=== PATIENT | male | born 1950 | race Caucasian/White ===

== ENCOUNTER → 2024-04-21 06:59 | Outpatient (REF) | payer MEDICARE, BC, SELFPAY ==
[2024-04-21 09:07] LABS: PSA, Total - Diagnostic 4.44 ng/ml (0.0-4.0)
== END ==
LOC: REG 06:59
PROVIDERS: ATTENDING PHYSICIAN Specialist
DX: N40.1 Benign prostatic hyperplasia with lower urinary tract symptoms (principal)
CPT/HCPCS: 36415; 84153

== ENCOUNTER → 2024-06-04 06:41 | Outpatient (REF) | payer MEDICARE, BC, SELFPAY | LOC: RAD 06:41 | PROVIDERS: ATTENDING PHYSICIAN Family Medicine | DX: I73.9 Peripheral vascular disease, unspecified (principal) | CPT/HCPCS: 93922; 93925 ==

== ENCOUNTER → 2024-06-07 14:38 | Outpatient (REF) | payer MEDICARE, BC, SELFPAY ==
[2024-06-07 15:50] LABS: Blood Urea Nitrogen 24 mg/dl (9-20); Calcium 9.6 mg/dl (8.4-10.2); Carbon Dioxide 28 mmol/L (22-30); Chloride 99 mmol/L (98-107); Glucose 38 mg/dl (70-99); Potassium 3.5 mmol/L (3.5-5.1); Sodium 136 mmol/L (135-145); eGFR 52.74
== END ==
LOC: REG 14:38
PROVIDERS: ATTENDING PHYSICIAN Surgery Vascular Surgery; FAMILY PHYSICIAN Family Medicine
DX: I73.9 Peripheral vascular disease, unspecified (principal)
CPT/HCPCS: 36415; 80048

== ENCOUNTER → 2024-06-09 13:31 | Outpatient (REF) | payer MEDICARE, BC, SELFPAY | LOC: HWRAD 13:31 | PROVIDERS: ATTENDING PHYSICIAN Surgery Vascular Surgery; FAMILY PHYSICIAN Family Medicine | DX: I73.9 Peripheral vascular disease, unspecified (principal) | CPT/HCPCS: 75635; Q9967 ==

== ENCOUNTER 2024-08-04 08:58 | Inpatient (IN) | payer MEDICARE, BC, SELFPAY ==
[2024-07-30 10:05] VITALS: BMI 41.7
[2024-07-30 10:29] LABS: % Basophils 0.7 % (0-2); % Immature Granulocytes 0.2 % (0-0.5); % Lymphocytes 17.2 % (20.5-51.1); % Monocytes 4.3 % (1.7-9.3); % Neutrophils 73.6 % (42.2-75.2); Absolute Basophils 0.1 10^3/uL (0-0.2); Absolute Eosinophils 0.3 10^3/uL (0-0.7); Absolute Lymphocytes 1.4 10^3/uL (1.2-3.4); Absolute Monocytes 0.4 10^3/uL (0.1-0.6); Absolute Neutrophils 6.1 10^3/uL (1.4-6.5); Hematocrit 36.2 % (39.0-52.0); Hemoglobin 12.6 g/dL (13.0-18.0); Mean Corp Hgb Conc. 34.8 g/dL (33.0-37.0); Mean Corpuscular Hgb 32.8 pg (27.0-31.0); Mean Corpuscular Volume 94.3 fL (80.0-94.0); Mean Platelet Volume 9.2 fL (7.4-10.4); Nucleated Red Blood Cells % 0 % (-); Platelet Count 215 10^3/uL (130-400); Red Blood Cell Count 3.84 10^6/uL (4.70-6.10); Red Cell Dist. Width 14.4 % (11.5-14.5); White Blood Cell Count 8.4 10^3/uL (4.8-10.8)
[2024-07-30 10:40] LABS: APTT 25.4 Sec (23.4-35.0); Blood Urea Nitrogen 29 mg/dl (9-20); Calcium 9.6 mg/dl (8.4-10.2); Carbon Dioxide 28 mmol/L (22-30); Chloride 102 mmol/L (98-107); Estimated Creatinine Clearance 58 ml/min; Glucose 196 mg/dl (70-99); INR 1.08; PT 13.9 Sec (11.4-14.6); Potassium 4.3 mmol/L (3.5-5.1); Sodium 141 mmol/L (135-145); eGFR 52.74
[2024-08-04] VITALS (26 sets, daily range): BP systolic 123–159; BP diastolic 48–107; BMI 40.0
--- NOTE | 2024-08-04 08:22 | HP.FOC2 ---
Focused History & Physical
Chief Complaint
HPI:
Chief Complaint: PAD, here for planned procedure
HPI / Indication for Planned Procedure: 74-year-old male here for planned left femoral endarterectomy, right lower extremity angiogram, possible IVL/WAREHOUSEMAN/stent with Dr. Colin today. Patient has trialed exercise and failed. He wishes to proceed with
this procedure today.
Relevant Past Medical History: Other (Crohn's disease, hypercholesterolemia, hypertension, diabetes, acute pancreatitis, CAD, GERD, sleep apnea, BPH, glaucoma, former smoker, seizure disorder)
Relevant Social History: Tobacco Use (Former)
Relevant Family History: Negative
Relevant Past Surgical History: Negative
Medication
See Medication form for detailed medications: Yes
Medication List (including Herbals & OTC):
atorvastatin 40 mg tablet 40 mg PO DAILY High cholesterol 07/19/21
fluticasone propionate 50 mcg/actuation nasal spray,suspension 2 spray intranasal DAILY Allergies 07/19/21
phenytoin sodium extended 100 mg capsule 100 mg PO QID Seizures 07/19/21
pantoprazole 40 mg tablet,delayed release 40 mg PO DAILY Gastrointestinal issue 07/27/21
magnesium 200 mg tablet 400 mg PO BID Electrolyte Repletion 07/10/22
metformin 1,000 mg tablet 1,000 mg PO BID Diabetes 07/10/22
amlodipine 5 mg tablet 5 mg PO DAILY Blood pressure #1 tab 08/02/22
lisinopril 20 mg-hydrochlorothiazide 12.5 mg tablet 2 tab PO DAILY Blood pressure #1 tab 08/02/22
acetaminophen 500 mg tablet (Acetaminophen Extra Strength) 1,000 mg PO PRN PRN pain 07/28/24
aspirin 81 mg tablet,delayed release 81 mg PO DAILY 07/28/24
insulin regular hum U-500 conc 500 unit/mL(3 mL) subcut pen (Humulin R U-500 (Conc) Insulin Kwikpen) 40 - 95 unit SC DIRECTED 07/28/24
Medications Reviewed: Yes
Allergies and Reactions
Patient has Allergies: Yes
Noted Allergies and Reactions:
Allergy/AdvReac Type Severity Reaction Status Date / Time
Sulfa (Sulfonamide Allergy Itching Verified 07/28/24 09:12
Antibiotics)
[Sulfa (Sulfonamides)]
Pertinent Physical Exam
All Other Systems: Negative
Head/Neck: Normal
Lungs: Normal
Heart: Normal
Abdomen: Normal
Extremities: Normal
Neurological: Normal
Diagnosis / Assessment
PAD
Plan / Procedure
Patient here for planned left femoral endarterectomy, right lower extremity angiogram, possible IVL/WAREHOUSEMAN/stent with Dr. Colin
Anesthesia/Sedation to be done by Anesthesia Provider: Yes
--- NOTE | 2024-08-04 09:35 | PTCARENOTE ---
PT ACCUCHECK 335. DR FARLEY AWARE. NO TX ORDERED. WILL TX INTRA PROCEDURE PER DR FARLEY
[2024-08-04] MEDS: PERIDEX 0.12% ORAL RINSE 15 ML PO (09:36)
[2024-08-04] MEDS: BACTROBAN NASAL 1 GRAM NASAL (09:37)
[2024-08-04] MEDS: NSS 500 IV (09:37)
[2024-08-04 09:43] LABS: Glucose - Point of Care 335 mg/dl (70-99)
--- NOTE | 2024-08-04 10:38 | W.SUR.PREOP ---
Pre-Operative Surgical Note
-
I have examined this patient prior to the performance of the scheduled procedure.
The patient's condition is unchanged from the time of the current History and
Physical and the patient is able to undergo the scheduled procedure.
[2024-08-04 13:08] LABS: Glucose - Point of Care 272 mg/dl (70-99)
[2024-08-04 14:34] LABS: Glucose - Point of Care 265 mg/dl (70-99)
--- NOTE | 2024-08-04 14:59 | W.SUR.POST ---
Surgical Immediate Post Op
Note
Pre Op Diagnosis: Peripheral arterial disease
Post Op Diagnosis: Peripheral arterial disease
Procedure Performed: Left femoral endarterectomy with bovine pericardium patch angioplasty, diagnostic right lower extremity arteriogram
Primary Surgeon: Chema Colin MD
neurosurgical physician assistant: LEYLA Grider
Anesthesia: GETA
Estimated Blood Loss: 150 mL
Fluids: Anesthesia flowsheet
Drains/Shunts: N/A
Specimens/Cultures: Left femoral plaque
Doppler/Duplex/Angio (Y/N): Yes
Complications: None
Operative Findings: Right lower extremity not amenable to endovascular intervention
[2024-08-04 15:28] LABS: Glucose - Point of Care 254 mg/dl (70-99)
[2024-08-04 15:50] LABS: Hematocrit 33.5 % (39.0-52.0); Hemoglobin 11.9 g/dL (13.0-18.0); Mean Corp Hgb Conc. 35.5 g/dL (33.0-37.0); Mean Corpuscular Hgb 33.1 pg (27.0-31.0); Mean Corpuscular Volume 93.1 fL (80.0-94.0); Platelet Count 208 10^3/uL (130-400); Red Cell Dist. Width 14.2 % (11.5-14.5); White Blood Cell Count 11.1 10^3/uL (4.8-10.8)
[2024-08-04 16:03] LABS: Blood Urea Nitrogen 29 mg/dl (9-20); Calcium 8.4 mg/dl (8.4-10.2); Carbon Dioxide 25 mmol/L (22-30); Chloride 101 mmol/L (98-107); Estimated Creatinine Clearance 68 ml/min; Glucose 266 mg/dl (70-99); Potassium 4.3 mmol/L (3.5-5.1); Sodium 136 mmol/L (135-145); eGFR > 60.00
--- NOTE | 2024-08-04 16:06 | CON.INTV ---
Consultation
Consultation Request
Date/Time Consultation Requested: 08/04/2024
Date/Time Consultation Performed: 08/04/2020
Requesting Provider: Dr. Colin
Performing Provider: Dr. Stephen Pham
Reason for Consultation: Status post femoral endarterectomy
Medical History
-
History of Present Illness:
74-year-old man with history of peripheral vascular disease, admitted on 08/04/2024 for planned left femoral endarterectomy, right lower lobe extremity angiogram. Surgery underwent by Dr. Colin without complication today.
Currently in the critical care unit.
Reports that the pain is controlled
Denies shortness of breath.
Denies any chest pain or palpitations.
Past Medical History
Past Medical History: Other (See assessment and plan)
Social History
Tobacco: Former Smoker
Alcohol: None
Drug: None
Family History
Family History: Reviewed & Not Pertinent
Allergies / Home Medications
Allergies
Allergy/AdvReac Type Severity Reaction Status Date / Time
Sulfa (Sulfonamide Allergy Itching Verified 08/04/24 09:49
Antibiotics)
[Sulfa (Sulfonamides)]
Home Medications
�Medication �Instructions �Recorded �Confirmed �Last Taken �Type
atorvastatin 40 mg tablet 40 mg PO DAILY High cholesterol 07/19/21 08/04/24 08/03/24 08:30 History
fluticasone propionate 50 2 spray intranasal DAILY Allergies 07/19/21 08/04/24 08/03/24 08:30 History
mcg/actuation nasal
spray,suspension
phenytoin sodium extended 100 mg 200 mg PO BID Seizures 07/19/21 08/04/24 08/03/24 18:00 History
capsule
pantoprazole 40 mg tablet,delayed 40 mg PO DAILY Gastrointestinal 07/27/21 08/04/24 08/03/24 08:30 History
release issue
magnesium 200 mg tablet 400 mg PO BID Electrolyte Repletion 07/10/22 08/04/24 08/03/24 18:00 History
metformin 1,000 mg tablet 1,000 mg PO BID Diabetes 07/10/22 08/04/24 08/03/24 18:00 History
amlodipine 5 mg tablet 5 mg PO DAILY Blood pressure #1 tab 08/02/22 08/04/24 08/03/24 08:30 Rx
lisinopril 20 2 tab PO DAILY Blood pressure #1 08/02/22 08/04/24 08/03/24 08:30 Rx
mg-hydrochlorothiazide 12.5 mg tab
tablet
acetaminophen 500 mg tablet 1,000 mg PO PRN PRN pain 07/28/24 08/04/24 Unknown History
(Acetaminophen Extra Strength)
aspirin 81 mg tablet,delayed 81 mg PO DAILY 07/28/24 08/04/24 08/03/24 08:30 History
release
insulin regular hum U-500 conc 500 40 - 75 unit SC DIRECTED 07/28/24 08/04/24 08/03/24 21:00 History
unit/mL(3 mL) subcut pen (Humulin 60 units
R U-500 (Conc) Insulin Kwikpen)
semaglutide 0.25 mg or 0.5 mg (2 0.5 mg SC QWEEK 08/04/24 08/04/24 07/19/24 08:00 History
mg/1.5 mL) subcutaneous pen
injector (Ozempic)
Review of Systems
-
History Source: Patient
All other systems: Negative unless noted
Vitals / Labs / Diagnostic Testing
Vital Signs
Temp Pulse Resp BP Pulse Ox
98.9 F 77 22 149/68 99
08/04/24 15:19 08/04/24 15:45 08/04/24 15:45 08/04/24 15:45 08/04/24 15:45
Lab Data
08/04/24 15:41
08/04/24 15:41
Diagnostic Testing:
Physical Exam
-
HEENT: Normocephalic
Cardiovascular: S1/S2
Respiratory: Non-Labored Respirations
GI: Soft and Non Distended
Neurology: Awake, Alert, AO x 3 and No Motor Deficits
Skin: Warm
General: Comfortable
Assessment
-
Status post:Left femoral endarterectomy with bovine pericardium patch angioplasty, diagnostic right lower extremity arteriogram-Dr. Colin 08/04/2024
Conditions present prior admission:
History of peripheral arterial disease discovered on CT from 06/09/2024
History of Crohn's disease
Hypercholesterolemia
Hypertension
Type 2 diabetes
History of pancreatitis
Coronary artery disease
GERD
Obstructive sleep apnea
BPH
Glaucoma
Former smoker
Seizure disorder
Assessment and plan:
Postoperative surgical intensive care unit monitoring
Supplemental oxygen as needed
Incentive spirometry
Aspiration precautions
Nebulizers if needed-currently not bronchospastic
Chest x-ray 07/30/2024 reviewed-showed no acute abnormalities
Neuro and vascular checks per protocol
Lower extremities are warm-groin incision without hematoma
Analgesia with narcotics-watch respiratory status closely
Vascular surgery following-correspondence and operative notes reviewed
Monitor blood pressure
Arterial line in place-arterial line appears damp. Would use noninvasive to monitor blood pressure.
Allow for mild permissive hypertension
Cardene drip if needed
Restart outpatient antihypertensive.
Follow hemoglobin
Follow blood sugars
Insulin supplementation as needed
Advance diet as able
Gentle IV fluid
DVT prophylaxis-heparin subcu
--- NOTE | 2024-08-04 16:10 | OR.RPT ---
Operative Report
Operative Report
PROCEDURE DATE: 08/04/2024
Preoperative diagnosis:
1. Severe debilitating left lower extremity claudication with multilevel disease including common femoral bulky plaque near occlusive disease and proximal superficial femoral artery/origin of superficial femoral artery bulky plaque near occlusive
disease.
2. Severe right lower extremity claudication.
Postoperative diagnosis: Same
Procedure:
1. Extensive left ilio-femoral endarterectomy (very distal left external iliac artery, common femoral artery, proximal superficial femoral artery, origin of profunda femoris) with long bovine pericardial patch angioplasty.
2. Aortogram/pelvic angiogram and right lower extremity arteriogram with selective catheterization of right superficial femoral artery via puncture of left common femoral artery patch.
3. Supervision and interpretation.
Surgeon: Cristi
Extruder Operator: MELIA Schmitt, required for all aspects of open surgical procedure including assistance with traction/countertraction, following a suture line, assistance with closure.
Complications: None
Anesthesia: General
Indications for procedure:
Severe bilateral left worse than right lower extremity claudication. Multilevel left-sided disease with bulky common femoral plaque. Discussed femoral endarterectomy with attempted right sided angiogram to percutaneously treat right sided SFA and
popliteal disease. Risk/benefit/alternatives all extensively discussed. Patient understood and wished to proceed.
Description of procedure:
Patient was identified brought to the operating room placed on the table in supine position. After the adequate administration of anesthesia he was prepped and draped in the standard surgical
fashion. A standard preoperative timeout was undertaken and everybody was in agreement the plan. A standard longitudinal incision was made in the left groin I was carried through the skin subcutaneous tissue. He due to his habitus, there was a
moderate amount of subcutaneous tissue to dissect through and we tissues were somewhat challenging to dissect through, but we were able to get down to the level of the inguinal ligament. Any crossing lymphatic type branches were ligated between
silk ties and then divided. In addition any subcutaneous veins were either clipped or ligated and divided. Identified the common femoral artery as it emerged from underneath inguinal ligament. It was plaque laden to palpation. I continued to
dissect down to the level of the femoral bifurcation staying on the anterior surface. Based on CT scan imaging I knew that there was disease in the proximal/origin of the superficial femoral artery. Therefore we dissected down to a segment when
the artery softened up which was at least 4 to 6 cm beyond the origin of the superficial femoral artery. However we were able to find a soft spot where I carefully circumferentially dissected and passed a vessel loop around it. Next I carefully
dissected the origin of the profunda. There was noted to be a branch that ran medially which was also carefully circumferentially dissected and controlled with a vessel loop. The main profunda initially I controlled proximally where it was soft.
However I felt I would need to get further exposure. I therefore then dissected to the first branch point. These were noted to be calcified as noted on CT scan (eccentric calcification without significant stenosis). I therefore then continued to
dissect the main profunda until I got to a soft spot where I could better control at night passed a vessel loop after careful circumferential dissection. Of note, any crossing veins were ligated between silk ties and divided to allow exposure of
the more distal profunda here. At this point we completed dissection of the remainder of the common femoral artery. Any branches were either ligated between silk ties and divided are controlled with Vesseloops. Next I dissected underneath the
inguinal ligament. The left circumflex iliac artery branch was identified and carefully circumferentially dissected and Vesseloops around it. When I dissected proximally to here I noted that the distal external iliac here was soft. I therefore
carefully circumferentially dissected and passed a vessel loop around it and favored this as my clamp site. Now that I had exposure of the inflow and outflow branches, we gave the patient an appropriate dose of heparin (8000 units). After this
circulated for 3 minutes the vessel loop on the distal profunda and the profunda branches were tightened. The superficial femoral artery was clamped where it was soft distally. A Derra clamp was used to clamp the distal external iliac artery. All
other Vesseloops that have been double looped were now tightened. Next I made an arteriotomy on the distal common femoral artery with an 11 blade and extended it proximally with a Maya scissor. Just proximal to the bifurcation there was a chunk
of coral reef like plaque. As I extended more proximally there was only posterior plaque for a few centimeters and then there was severe coral reef/cauliflower-like plaque in the very proximal common femoral artery/distal external iliac artery.
This correlated to the area seen on CT scan. I carried the arteriotomy just beyond that plaque. Next I continued the arteriotomy distally onto the SFA for a few centimeters until I got to the soft spot. Now I used a Taft to create an
endarterectomy plane. There was severe plaque in the origin of the SFA for a few centimeters as well. Therefore this endarterectomy proved to be somewhat challenging as this was bulky dense plaque in several areas here. However I was able to
successfully endarterectomized the plaque all out. The plaque was essentially everted out of the origin of the profunda femoris artery. I was able to feathered out to reasonable endpoints proximally and distally, proximally in the distal external
iliac artery, distally in the superficial femoral artery. The origin of the profunda I inspected and there was a little bit of intima loosely at the posterior lip, and I was able to trim that down to a nice clean feathered endpoint where the intima
is nicely adherent. There is no stenosis now. At this point any fine debris was removed throughout the endarterectomy field with fine forceps. I then irrigated heparinized saline. I confirmed good endpoints proximally and distally and at the
origin of the profunda. I then placed a couple 7-0 Prolene posterior tacking sutures at the distal endpoint in the SFA and at the endpoint on the origin of the profunda. This was done just to tack the posterior intima. Once I did this I then used
a long bovine pericardial patch (14 cm) to sew along patch angioplasty from the distal external iliac artery to the superficial femoral artery. This was done with a running 5-0 Prolene suture. Prior to completing and tying down my suture line I
backbled each of the branches and then flushed heparinized saline and then completed and tied in my suture line. Next I released flow by releasing my clamps. There is excellent pulsatile flow into the arterial branches. Doppler confirmed
excellent signals. A couple 5-0 Prolene and 6-0 Prolene hbturj-zj-jbhsk type sutures were placed along the suture line for any repair sites. Hemostasis of such was fully achieved.
Now, I punctured the patch using a micropuncture kit and a central facing direction in the mid patch. I then advanced a micropuncture sheath and then exchanged over a 0.035 inch wire for a 5 Spanish sheath. Next I advanced a rios's the catheter
into the abdominal aorta over the wire. Aortogram pelvic angiogram was obtained. This demonstrated patent aorta and bilateral common and external iliac arteries with no significant stenosis. Next I used a flopping of hydrophilic wire to cannulate
the right common femoral artery. There was a knuckle of a turn or tortuosity in the right distal external iliac artery but no stenosis. This made it slightly challenging to cannulate the common femoral and beyond but I was able to do so and then
advanced a glide catheter. Right lower extremity arteriogram was performed. This demonstrated fairly bulky plaque in the distal common femoral artery and then at the origin of the superficial femoral artery. Beyond here there was a few
centimeters of respite before there was another section of heavy bulky plaque in the SFA. Then in the mid to distal SFA there was a area of focal occlusion again in the setting of very bulky plaque. And then finally there was an area in the
popliteal artery of focal occlusion versus severe stenosis with again bulky plaque. At this point I cannulated the proximal superficial femoral artery and was able to get through the plaque at the origin. I then was able to exchanged for a Storq
wire and then an up and over 6 Spanish sheath. Next, I used a flopping of hydrophilic wire and a CXI catheter and was able to traverse the origin of the SFA and the proximal SFA stenosis with great difficulty actually. I had trouble passing my CXI
catheter but was finally able to pass it into the mid SFA. Then I approached that area of occlusion and under roadmap assisted guidance was finally able to traverse it with my flopping on hydrophilic wire but catheter could not pass through the
area. I exchanged and tried with a quick cross catheter as well, but no success. After multiple times of trying I felt that there was no further option here. If I was to try with a stiff wire I would have to lose wire access where I had crossed
the occlusion, and in addition I had tried to cross the popliteal occlusion once my wire had passed without the catheter support down there and I could not cross it. Therefore I felt that due to the bulky nature of all his SFA and popliteal
disease, this was not best served with the standard angioplasty or stenting. Therefore at this point I withdrew my wires and catheters. The sheath was withdrawn to the left external iliac artery. Next I clamped the patched artery proximally and
distally and withdrew my sheath as I tightened my clamp proximally. I then placed a 5-0 and 6-0 Prolene jaqsky-su-zuwfx type suture on the sheath entry site after the sheath was removed. I then released my clamps. Hemostasis was achieved. I
confirmed excellent pulsations in the branch of the artery. Next, I irrigated vigorously, and confirmed full hemostasis. Then closed in layers using 2 layers of 2-0 Vicryl followed by 3-0 Vicryl running deep dermal layer followed by skin clips.
Dressings were applied. The patient tolerated procedure well.
[2024-08-04] MEDS: NOVOLOG vial 4 UNITS SC (16:11)
[2024-08-04] MEDS: NSS 1000 IV (17:04)
[2024-08-04] MEDS: NOVOLOG FLEXPEN-HIGH RESISTANCE SC (17:05)
[2024-08-04] MEDS: ROXICODONE 5 MG PO ×2 (17:47→21:53)
--- NOTE | 2024-08-04 18:22 | PTCARENOTE ---
Rec'd patient from PACU @ 5662. Patient AAOx3. NSR on tele monitor. VSS. Left radial sebas positional. Leveled and zeroed. Unable to obtain accurate results. Collections Attorney and Dr Colin notified. Advised to go with BP cuff results. Lung sounds cta.
Simple mask removed. Pulse ox 95-96% on RA. +BS. Abdomen round/obese. Perez in place. Output blood tinged. Left groin site intact with ROSMERY. B/L neurovascular checks wnl. +Doppler dp and pt pulses. MAEx4. Pain controlled with PRN Brunilda. Call cardoza
within reach.
--- NOTE | 2024-08-04 19:34 | PTCARENOTE ---
On assessment pt AAOx3, c/o pain to L groin surgical site, PRN meds given see TRENT, SR on the monitor, + doppler pulses, RA 96%, #16 sim remove POD#2, L groin with ROMSERY dressing blinking MD cha has been made aware per dayshift Yvonne KENYON in
place but very positional, also was made aware and to have staff go off cuff pressures. Call cardoza in reach
[2024-08-04] MEDS: DILANTIN 200 MG PO (21:37)
[2024-08-04] MEDS: MAG-TAB SR 84 MG PO (21:38)
[2024-08-04] MEDS: HEPARIN 5000 UNITS SC (21:38)
[2024-08-04 21:58] LABS: Glucose - Point of Care 179 mg/dl (70-99)
--- NOTE | 2024-08-04 22:37 | PTCARENOTE ---
Decreased UO noted at 2100, staff tried to flush but no urine was noted, bladder scan was 100cc, HOME ATTENDANT at bedside to assess pt, due to pain and small amount of bloody drainage from catheter, manual irrigation completed, clot was noted and urine flow
resumed and 180cc of yellow urine went into sim bag. pt states 'feeling much better'. HOME ATTENDANT made aware
[2024-08-05] VITALS (24 sets, daily range): BP systolic 96–142; BP diastolic 50–85; BMI 40.3
--- NOTE | 2024-08-05 00:40 | PTCARENOTE ---
Pt continued to have issues with L radial Yvonne. Dayshift and nightshift had multiple attempts to get a good wave form and correlating BPs to cuff but was unsuccessful. BOILERMAKER made aware and order was placed to remove Yvonne, removed per protocol, pt
tolerated and no bleeding noted. call cardoza in reach
[2024-08-05] MEDS: NSS 1000 IV (02:22)
--- NOTE | 2024-08-05 02:33 | PTCARENOTE ---
Irrigated sim again, pt tolerated well, increased urine output noted, see flowsheets
[2024-08-05 04:39] LABS: Hematocrit 29.8 % (39.0-52.0); Hemoglobin 10.6 g/dL (13.0-18.0); Mean Corp Hgb Conc. 35.6 g/dL (33.0-37.0); Mean Corpuscular Hgb 33.5 pg (27.0-31.0); Mean Corpuscular Volume 94.3 fL (80.0-94.0); Platelet Count 190 10^3/uL (130-400); Red Blood Cell Count 3.16 10^6/uL (4.70-6.10); Red Cell Dist. Width 14.4 % (11.5-14.5); White Blood Cell Count 10.4 10^3/uL (4.8-10.8)
[2024-08-05 04:52] LABS: PT 14.2 Sec (11.4-14.6)
[2024-08-05 04:53] LABS: APTT 24.3 Sec (23.4-35.0)
[2024-08-05 05:03] LABS: Blood Urea Nitrogen 23 mg/dl (9-20); Carbon Dioxide 22 mmol/L (22-30); Chloride 103 mmol/L (98-107); Estimated Creatinine Clearance 74 ml/min; Glucose 218 mg/dl (70-99); Sodium 137 mmol/L (135-145); eGFR > 60.00
[2024-08-05 05:47] LABS: Hepatitis C Antibody Negative (Negative)
--- NOTE | 2024-08-05 07:38 | W.PN.VS ---
Addendum entered and electronically signed by Chema Colin MD 08/05/24 12:28:
Seen and examined earlier this a.m. with [employer] POWERPLANT MECHANIC HELPER's. This is a late entry. Findings and plan as noted and discussed below.
Original Note:
Today's Communication / Plan
-
Seen and assessed with Dr. Colin
Assessment/Plan
-
POD 1 left femoral endarterectomy with on table diagnostic right lower extremity arteriogram
Plan:
-DC A-line
-DC fluids
-DC Perez
-Out of bed to chair later this morning, will progress to ambulation tomorrow
-Diet
-Continue ICU today
Subjective Data
-
Date of Service: August 05, 2024
Objective Data
-
Vital Signs
Temp Pulse Resp BP Pulse Ox
98.3 F 89 16 142/64 96
08/05/24 00:39 08/05/24 06:00 08/05/24 06:00 08/05/24 06:00 08/05/24 06:00
Intake and Output
08/04/24 08/05/24 08/06/24
06:59 06:59 06:59
Intake Total 1540 / 1540
Output Total 2104
Balance -565 / -565
Intake:
Oral fluids 320 / 320
IV fluids (Total) 1220 / 1220
Normosol 100 / 100
Nss 1,000 ml @ 80 mls/hr IV . 1120 / 1120
[id number] [facility] Rx#:[id number]
Output:
Urine, Perez 2104
Lab Results
08/05/24 04:16
08/05/24 04:16
Calcium 8.0 mg/dl (8.4-10.2) L 08/05/24 04:16
Physical Exam
-
AAOx3
No tachypnea on room air
No tachycardia
Abdomen soft
Left groin site dressing clean, dry, intact. No drainage noted
Bilateral feet warm, pink. Doppler PT and DP signals +
--- NOTE | 2024-08-05 08:00 | PTCARENOTE ---
recd pt 0715, vascular check with offgoing RN. assessed as noted. notes pain manageable. aware of plans for the day. some leaking urine around sim, dcd per order. urinal provided.
[2024-08-05] MEDS: MAG-TAB SR 84 MG PO ×2 (08:03→20:35)
[2024-08-05] MEDS: ASPIR LOW (ENTERIC COATED) 81 MG PO (08:03)
[2024-08-05] MEDS: DILANTIN 200 MG PO ×2 (08:03→20:35)
[2024-08-05] MEDS: HEPARIN 5000 UNITS SC (08:03)
[2024-08-05] MEDS: LIPITOR 40 MG PO (08:03)
[2024-08-05] MEDS: PROTONIX 40 MG PO (08:03)
[2024-08-05] MEDS: ORETIC 25 MG PO (08:04)
[2024-08-05] MEDS: NORVASC 5 MG PO (08:04)
[2024-08-05] MEDS: ZESTRIL 40 MG PO (08:04)
[2024-08-05 08:18] LABS: Glucose - Point of Care 289 mg/dl (70-99)
[2024-08-05 08:21] LABS: Glycohemoglobin (HgbA1c) 7.1 % (4.0-5.6)
[2024-08-05] MEDS: NOVOLOG FLEXPEN-HIGH RESISTANCE 7 UNITS SC (09:29)
[2024-08-05] MEDS: ROXICODONE 5 MG PO ×4 (10:21→22:46)
--- NOTE | 2024-08-05 10:49 | CM ---
CM following re: discharge planning.
Discussed in Rounds, reviewed pt's chart, met with pt.
Pt is a 74 year old male, admitted with primary dx of POD 1 left femoral endarterectomy.
Pt reports he lives alone in a 2SH, 2 steps to enter, spouse 2 years ago. Emotional support offered and provided. Pt reports he has no children, has supportive young brother who lives in [place] and staying now with the pt due to
pt's hospitalization. 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 Pt reports he does not use any mobile devices.
PT and OT will evaluate the pt to determine a level of care at discharge.
PCP: Teodoro Barnard
Pharmacy: [facility]
D/C plan; home with anticipated no needs vs VN. Awaiting for PT/OT evaluations and recommendations.
CM will follow with discharge plan updates as hospitalization progresses
--- NOTE | 2024-08-05 11:20 | PTCARENOTE ---
med as noted earlier pre-activity, OOB with RW, gait steady and strong, to recliner. stood to void clear yellow, less blood tinge than earlier.
--- NOTE | 2024-08-05 11:32 | W.PN.INTV ---
Today's Communication / Plan
Recommendations
Continue neurovascular checks per protocol
Postoperative care
Restart outpatient medications
Glycemic control
Analgesia with narcotics as needed
Will maintain ICU level of care for additional 24 hours
Assessment
-
Status post:Left femoral endarterectomy with bovine pericardium patch angioplasty, diagnostic right lower extremity arteriogram-Dr. Colin 08/04/2024
Conditions present prior admission:
History of peripheral arterial disease discovered on CT from 06/09/2024
History of Crohn's disease
Hypercholesterolemia
Hypertension
Type 2 diabetes
History of pancreatitis
Coronary artery disease
GERD
Obstructive sleep apnea
BPH
Glaucoma
Former smoker
Seizure disorder
Chest x-ray 07/30/2024-showed no acute abnormalities
Assessment and plan:
Postoperative day 1
Doing well
Neurologically and hemodynamically stable.
Arterial line will be discontinued
Perez catheter discontinued
Out of bed to chair, ambulation tomorrow.
-
Supplemental oxygen as needed
Incentive spirometry
-
Neuro and vascular checks per protocol
Lower extremities are warm
groin incision without hematoma
Analgesia with narcotics-watch respiratory status closely
Vascular surgery following-correspondence and operative notes reviewed
Continue to monitor hemodynamics
Continue outpatient regimen
Arterial line has been discontinued
Follow hemoglobin-stable compared to yesterday.
No evidence for acute bleeding at this point
Follow blood sugars
Insulin supplementation as needed
Diet as tolerated
DVT prophylaxis-heparin subcu
Will maintain ICU hemodynamic monitoring for additional 24 hours
Subjective Dataa
Subjective Data
Date of Service:
Date of Service: August 05, 2024
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
Subjective:
Patient offers no new complaints
Denies shortness of breath
Denies significant pain
Denies abdominal pain nausea vomit
Review of Systems
Cardiopulmonary: Dyspnea on Exertion (n)
GI: Abdominal Pain (n) and Nausea (n)
Objective Data
Data Reviewed
Vital Signs / I&O / Oxygen:
Vital Signs
Temp Pulse Resp BP Pulse Ox
98.5 F 96 22 125/70 92
08/05/24 07:40 08/05/24 10:00 08/05/24 10:00 08/05/24 10:00 08/05/24 10:00
Intake and Output
08/04/24 08/05/24 08/06/24
06:59 06:59 06:59
Intake Total 1540 / 1620 800 / 800
Output Total 2105 / 2305 625 / 625
Balance -565 / -685 175 / 175
SaO2 92
Physical Exam
General: Comfortable
HEENT: Normocephalic
Cardiovascular: S1-S2
Respiratory: Non-Labored Respirations
GI: Soft and Non Distended
Neurology: Awake, AO x 3 and No Motor Deficits
Skin: Warm and Other (Incision is intact without evidence of bleeding)
Labs/Micro/Reports
Lab Data
08/05/24 04:16
08/05/24 04:16
Laboratory Results
08/05/24
04:16
PT 14.2
INR 1.10
APTT 24.3
[2024-08-05] MEDS: GLUCOPHAGE 1000 MG PO ×2 (12:07→20:35)
[2024-08-05 12:29] LABS: Glucose - Point of Care 350 mg/dl (70-99)
--- NOTE | 2024-08-05 12:39 | PN.CDI ---
CDI
- -
CDI:
Physician Documentation Request
Admit Date: 08/04/24 08:58
Dear Vascular Surgery,
Clinical Indicators:
Patient admitted with PAD; s/p left femoral endarterectomy 08/04.
Height: 5 ft 8 in
BMI/weight trend:
07/30/24
10:05 08/04/24
09:48 08/05/24
06:00
Actual Weight 265 lb 14.04 oz 263 lb 265 lb 3.457 oz
Body Mass Index (BMI) 41.7 40.0 40.3
08/05 note, 'Chart reviewed due to pt with BMI > 40 morbidly obese range'
If possible, please provide an associated diagnosis related to the abnormal BMI (BMI > or = to 40), such as:
Morbid obesity
Obesity
BMI is not significant
Other, please specify
Use of terms such as suspected, likely, concern for, or probable (associated with a specific diagnosis that is being evaluated, monitored, or treated as if it exists) are acceptable and can be coded in the inpatient setting, when documented at the
time of discharge.
Thank you,
Liv Irby RN BSN
CDI Specialist
available via tiger text
Please use your independent medical judgment in providing your response.
--- NOTE | 2024-08-05 13:23 | PN.DE.MGMTRT ---
Insulin Management
- -
08/05/2024: Diabetes management consult
74 year old male s/p Left femoral endarterectomy. PMH: CAD, LEONEL, GERD, HTN, PAD, Crohn's disease, Hypercholesterolemia, H/O pancreatitis, BPH, Glaucoma, Former smoker, Seizure disorder and T2DM, current A1C 7.1%, follows Endo Dr. Rogers Biswas at
[facility]. Uses CGM FreeStyle Cheryl 3.
Pt awake, A/O x3, sitting up in chair, pleasant, offers no complaints, able to discuss diabetes mgt.
He is doing well post-op. Current diabetes regimen includes Metformin 1000mg BID and High corrective insulin only.
Was taking U-500, 75 units before breakfast, 40 units before lunch if he eats and 20 units if not lunch and 60 units at 9pm.
Blood sugar has trended up to 350, requiring high doses of corrective insulin. Pt has ordered fruit bowl for lunch.
Will start OP regimen, Give U-500, 40 units now. 60 units @ 9pm tonight and 75 units in AM before breakfast.
Change to moderate corrective insulin with meals.
Discussed with ICU team- Pharmacy and Nurse at bedside.
Diabetes History
- -
Type of Diabetes: 2 requiring insulin
Pre-Admission Diabetes Regimen
08/04/24 08/05/24
15:41 04:16
Creatinine 1.2 1.1
Lab Results
Hemoglobin A1c 7.1 % (4.0-5.6) H 08/05/24 04:16
Insulin Pump Settings
IP Diabetes Regimen
08/04/24 08/04/24 08/04/24
14:22 15:27 15:41
Glucose 266 H
POC Glucose 265 H 254 H
08/04/24 08/05/24 08/05/24
21:47 04:16 08:00
Glucose 218 H
POC Glucose 179 H 289 H
08/05/24
12:17
Glucose
POC Glucose 350 H
Meal type: Breakfast
Amount consumed: 100%
Patient Education
[2024-08-05] MEDS: NOVOLOG FLEXPEN-HIGH RESISTANCE 12 UNITS SC (13:57)
--- NOTE | 2024-08-05 14:07 | PTCARENOTE ---
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 pt aware and verbalizing understanding.
[2024-08-05] MEDS: TYLENOL 650 MG PO ×3 (14:30→22:46)
[2024-08-05 15:28] LABS: Glucose - Point of Care 450 mg/dl (70-99)
--- NOTE | 2024-08-05 15:32 | PTCARENOTE ---
U 500 insulin ordered, accucheck high, venous glucose obtained and sent, awaiting result to cover.
[2024-08-05 15:44] LABS: Glucose 371 mg/dl (70-99)
[2024-08-05] MEDS: HUMULIN R U-500 (CONCENTRATED) 40 UNITS SC (15:47)
[2024-08-05 17:44] LABS: Glucose - Point of Care 351 mg/dl (70-99)
[2024-08-05] MEDS: NOVOLOG FLEXPEN-MODERATE RESISTANCE 9 UNITS SC (17:49)
[2024-08-05] MEDS: LOVENOX 40 MG SC (17:56)
--- NOTE | 2024-08-05 18:43 | PTCARENOTE ---
back to bed min assist. positioned for comfort. stood to urinate. oral care by patient, brushed teeth.
--- NOTE | 2024-08-05 19:58 | PTCARENOTE ---
On assessment pt AAOx3, c/o discomfort to L groin surgical site, PRN meds given see TRENT, SR on the monitor, + doppler pulses, RA 95%, sim removed today, voiding in urinal well per pt, L groin with ROSMERY dressing blinking MD cha aware per
dayshift RN, Call cardoza in reach
[2024-08-05 20:33] LABS: Glucose - Point of Care 303 mg/dl (70-99)
[2024-08-05 21:39] LABS: Glucose - Point of Care 271 mg/dl (70-99)
[2024-08-05] MEDS: HUMULIN R U-500 (CONCENTRATED) 60 UNITS SC (22:03)
[2024-08-06] VITALS (20 sets, daily range): BP systolic 97–145; BP diastolic 47–86; PULSE 111–126; O2SAT 98; BMI 40.9
--- NOTE | 2024-08-06 | PTCARENOTE ---
Pt c/o pain to L groin PRN meds given see MAR, pt uses urinal x1 assist, call cardoza in reach
[2024-08-06] MEDS: DILAUDID 0.5 MG IV (01:50)
[2024-08-06 03:39] LABS: Hematocrit 29.2 % (39.0-52.0); Hemoglobin 10.5 g/dL (13.0-18.0); Mean Platelet Volume 9.1 fL (7.4-10.4); Platelet Count 194 10^3/uL (130-400); Red Blood Cell Count 3.28 10^6/uL (4.70-6.10); Red Cell Dist. Width 14.4 % (11.5-14.5); White Blood Cell Count 9.6 10^3/uL (4.8-10.8)
[2024-08-06 03:55] LABS: Blood Urea Nitrogen 26 mg/dl (9-20); Calcium 8.6 mg/dl (8.4-10.2); Carbon Dioxide 25 mmol/L (22-30); Chloride 101 mmol/L (98-107); Estimated Creatinine Clearance 68 ml/min; Glucose 152 mg/dl (70-99); Potassium 3.9 mmol/L (3.5-5.1); Sodium 136 mmol/L (135-145); eGFR > 60.00
--- NOTE | 2024-08-06 05:54 | PTCARENOTE ---
pt appears to be resting comfortably in bed at this time, PRN meds given see gina NEWMAN in reach
[2024-08-06] MEDS: TYLENOL 650 MG PO ×2 (06:37→15:09)
[2024-08-06] MEDS: ROXICODONE 5 MG PO ×2 (06:37→12:23)
--- NOTE | 2024-08-06 07:49 | PN.DE.MGMTRT ---
Insulin Management
- -
08/06/2024: Diabetes management F/U:
74 year old male s/p Left femoral endarterectomy. PMH: CAD, LEONEL, GERD, HTN, PAD, Crohn's disease, Hypercholesterolemia, H/O pancreatitis, BPH, Glaucoma, Former smoker, Seizure disorder and T2DM, current A1C 7.1%, follows Endo Dr. Rogers Biswas at
[facility]. Uses CGM FreeStyle Cheryl 3. Current diabetes regimen includes Metformin 1000mg BID and High corrective insulin only.
Was taking U-500, 75 units before breakfast, 40 units before lunch if he eats and 20 units if not lunch and 60 units at 9pm.
Pt awake, A/O x3, sitting up in chair, pleasant, offers no complaints, able to discuss diabetes mgt.
POD #2, doing. States he is very happy with how his blood sugars have come down since starting is home insulin
Blood sugar trended up to 450 yesterday due to delay in getting his U-500 lunch time dose.
Glucose at bedtime was 271, received 60 units of U-500, FBG 152 (V) and 107 right before breakfast.
Will make no changes to current regimen: U-500, 75 units @breakfast, 40 units @lunch if he eats and 20 units if no lunch and 60 units at 9pm.
Cont moderate corrective insulin with meals.
Discussed with pt, ICU team- Pharmacy and Nurse at bedside.
Diabetes History
- -
Type of Diabetes: 2 requiring insulin
Pre-Admission Diabetes Regimen
08/06/24
03:28
Creatinine 1.2
Lab Results
Hemoglobin A1c 7.1 % (4.0-5.6) H 08/05/24 04:16
Insulin Pump Settings
IP Diabetes Regimen
08/05/24 08/05/24 08/05/24
08:00 12:17 15:16
Glucose
POC Glucose 289 H 350 H 450 H
08/05/24 08/05/24 08/05/24
15:23 17:32 20:21
Glucose 371 H
POC Glucose 351 H 303 H
08/05/24 08/06/24
21:28 03:28
Glucose 152 H
POC Glucose 271 H
Meal type: Dinner
Meal type: Lunch
Meal type: Breakfast
Amount consumed: 100%
Amount consumed: 100%
Amount consumed: 100%
Patient Education
[2024-08-06] MEDS: DILANTIN 200 MG PO ×2 (07:56→21:13)
[2024-08-06] MEDS: LIPITOR 40 MG PO (07:56)
[2024-08-06] MEDS: ASPIR LOW (ENTERIC COATED) 81 MG PO (07:56)
[2024-08-06] MEDS: NORVASC PO (07:58)
--- NOTE | 2024-08-06 07:58 | W.PN.VS ---
Addendum entered and electronically signed by Chema Colin MD 08/06/24 09:53:
Seen and examined with MELIA Schmitt. Agree with findings as noted below. Abdomen is soft, nondistended, nontender. Left groin dressing is clean dry and intact. No hematoma. Right foot warm. Hemoglobin stable. Plan/as discussed and noted below.
Original Note:
Today's Communication / Plan
-
Seen at bedside this a.m. with Dr. Colin
Assessment/Plan
-
POD 2 left femoral endarterectomy with on table diagnostic right lower extremity arteriogram
Plan:
-PT/OT
-Ambulate
-Appreciate diabetic management
-Possible DC later today, if patient does go home I will return to change phil dressing
Subjective Data
-
Date of Service: August 06, 2024
Patient seen at bedside this a.m. with Dr. Colin. Patient complains of left leg 'heaviness'. He has experienced this in the past after a hip surgery. He is looking forward to getting out of bed today and walking around. No events overnight
Objective Data
-
Vital Signs
Temp Pulse Resp BP Pulse Ox
99.5 F 72 22 110/56 96
08/06/24 07:00 08/06/24 06:00 08/06/24 06:00 08/06/24 06:00 08/06/24 06:00
Intake and Output
08/05/24 08/06/24 08/07/24
06:59 06:59 06:59
Intake Total 1540 / 1620 1370 / 1370
Output Total 2105 / 2305 1950 / 1950
Balance -565 / -685 -580 / -580
Intake:
Oral fluids 320 / 320 1290 / 1290
IV fluids (Total) 1220 / 1300 80 / 80
Normosol 100 / 100
Nss 1,000 ml @ 80 mls/hr IV . 1120 / 1200 80 / 80
[id number] [facility] Rx#:[id number]
Output:
Urine, Perez 2105 / 2305 200 / 200
Urine, Voided 1750 / 1750
Lab Results
08/06/24 03:28
08/06/24 03:28
Calcium 8.6 mg/dl (8.4-10.2) 08/06/24 03:28
Physical Exam
-
AAOx3
No tachypnea on room air
No tachycardia
Abdomen soft
Left groin site dressing clean, dry, intact. No drainage noted
Bilateral feet warm, pink. Doppler PT and DP signals +
[2024-08-06] MEDS: ORETIC PO (07:59)
[2024-08-06] MEDS: GLUCOPHAGE 1000 MG PO ×2 (07:59→21:13)
[2024-08-06] MEDS: MAG-TAB SR 84 MG PO ×2 (08:00→21:13)
[2024-08-06] MEDS: ZESTRIL PO (08:00)
[2024-08-06] MEDS: PROTONIX 40 MG PO (08:00)
[2024-08-06] MEDS: HUMULIN R U-500 (CONCENTRATED) 75 UNITS SC (08:01)
[2024-08-06 08:07] LABS: Glucose - Point of Care 107 mg/dl (70-99)
[2024-08-06] MEDS: NOVOLOG FLEXPEN-MODERATE RESISTANCE SC ×3 (08:10→16:35)
--- NOTE | 2024-08-06 10:59 | W.PN.INTV ---
Today's Communication / Plan
Recommendations
Continue postoperative care
Possible discharge later today
Assessment
-
Status post:Left femoral endarterectomy with bovine pericardium patch angioplasty, diagnostic right lower extremity arteriogram-Dr. Colin 08/04/2024
Conditions present prior admission:
History of peripheral arterial disease discovered on CT from 06/09/2024
History of Crohn's disease
Hypercholesterolemia
Hypertension
Type 2 diabetes
History of pancreatitis
Coronary artery disease
GERD
Obstructive sleep apnea
BPH
Glaucoma
Former smoker
Seizure disorder
Chest x-ray 07/30/2024-showed no acute abnormalities
Assessment and plan:
Postoperative day 2
Doing well
Neurologically and hemodynamically stable.
Distal pulses present
Extremities are warm
Increase activity as able
-
Neuro and vascular checks per protocol
groin incision without hematoma
Analgesia with narcotics-watch respiratory status closely
Vascular surgery following-correspondence and operative notes reviewed
Possible discharge today
Hemodynamically stable
Follow hemoglobin-stable
No evidence for acute bleeding at this point
Follow blood sugars-
Insulin supplementation as needed
Nurse practitioner follow
DVT prophylaxis-heparin subcu
Possible discharge today. If not discharged we will transfer to telemetry.
Critical care team will sign off
Subjective Dataa
Subjective Data
Date of Service:
Date of Service: August 06, 2024
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
Subjective:
Patient denies any shortness of breath
Pain is controlled
He was able to get out of bed
Tolerating diet
Review of Systems
Cardiopulmonary: Dyspnea (n) and Cough (n)
GI: Abdominal Pain (n) and Nausea (n)
Neuro: Headache (n)
Objective Data
Data Reviewed
Vital Signs / I&O / Oxygen:
Vital Signs
Temp Pulse Resp BP Pulse Ox
99.5 F 103 27 139/70 95
08/06/24 07:00 08/06/24 10:00 08/06/24 10:00 08/06/24 10:00 08/06/24 10:00
Intake and Output
08/05/24 08/06/24 08/07/24
06:59 06:59 06:59
Intake Total 1540 / 1620 1370 / 1370
Output Total 2105 / 2305 1950 / 1950 200 / 200
Balance -565 / -685 -580 / -580 -200 / -200
SaO2 95
Physical Exam
General: Comfortable
HEENT: Normocephalic
Cardiovascular: S1-S2
Respiratory: Non-Labored Respirations
GI: Soft and Non Distended
Neurology: Awake, AO x 3 and No Motor Deficits
Skin: Warm and Other (Incision is intact without evidence of bleeding- no hematoma)
Labs/Micro/Reports
Lab Data
08/06/24 03:28
08/06/24 03:28
[2024-08-06 12:05] LABS: Glucose - Point of Care 146 mg/dl (70-99)
[2024-08-06] MEDS: HUMULIN R U-500 (CONCENTRATED) 40 UNITS SC ×2 (12:17→21:52)
--- NOTE | 2024-08-06 12:57 | CM ---
CM following re: discharge planning.
Discussed in Rounds, reviewed pt's chart, met with pt, pt's brother deja and his grandson.
PT and OT evaluations noted - SNF level of care recommended. Both pt and his family are aware, expressed their agreement. A list of SNFs provided to the pt. Following SNFs preferred: [facility], [facility], [facility], [facility], [facility], [facility] or [facility] SNF. A referral to above SNFs made. Awaiting for determination.
D/C plan: preferred SNF. Awaiting for determination.
CM will follow to assist pt with discharge to a preferred SNF.
--- NOTE | 2024-08-06 14:15 | PTCARENOTE ---
Pt received in bed @ 0700. AAOx3. PRN Roxicodone administered for 6/10 groin pain. Neurovascular assessment unchanged. Pt assisted OOB to chair. SaO2 96% on room air. Diminished breath sounds. Sinus rhythm/Sinus tach on monitoring manager.
Anti-hypertensives held per order as SBP < 130 and receiving Roxicodone. Round obese belly. No bowel movement observed. Insulin administered per order. Left groin site C/D/I. Pt stood to use urinal throughout day with progressive weakness, stating
that he thinks he would be unable to go home safely. Assessed by Physical Therapy and case management pursuing placement option.
--- NOTE | 2024-08-06 14:44 | W.PN.UPDATE ---
Update Note
Progress Note Update
CDI:
Physician Documentation Request
Admit Date: 08/04/24 08:58
Clinical Indicators:
Patient admitted with PAD; s/p left femoral endarterectomy 08/04.
Height: 5 ft 8 in
BMI/weight trend:
07/30/2410:05 08/04/2409:48 08/05/2406:00
Actual Weight 265 lb 14.04 oz 263 lb 265 lb 3.457 oz
Body Mass Index (BMI) 41.7 40.0 40.3
08/05 note, 'Chart reviewed due to pt with BMI > 40 morbidly obese range'
If possible, please provide an associated diagnosis related to the abnormal BMI (BMI > or = to 40), such as:
Morbid obesity
--- NOTE | 2024-08-06 14:58 | W.[place]-PDMP ---
[place]-PD[place]
-
Checked the [place]- Prescription Drug Monitoring Program website, no red flags identified; safe to proceed with prescription.
--- NOTE | 2024-08-06 15:30 | PTCARENOTE ---
Received, pt resting in bed. Temp 102.1. PRN Tylenol given. Sat's 90% on simple mask set at 8L NC. Denies any pain. Report given to 2 [facility] by previous RN. Reached out to Elizabeth SCHMIDT about temp. before moving pt. Will upgrade back to ICU, Left groin
dressing changed by Elizabeth SCHMIDT, Xray ordered. Pulse ox changed to a different finger and now sating 94-98% on RA. Lungs diminished throughout. IS given to help open lungs. Sinus tach on monitor. Trace lower extremity edema. Pulses present by
doppler. Pt updated with plan of care. Will continue to monitor pt. closelly.
--- NOTE | 2024-08-06 15:38 | W.PN.UPDATE ---
Update Note
Progress Note Update
Pt spiked temp 102.1 before transfer to telemetry. RN notified me. I saw pt at bedside. Surgical site dressing changed, no drainage or sign of infection. [place] applied. Pulse ox improved to normal, pt states he feels his breathing is at his baseline.
Medial thigh mildly pink, skin slightly indurated, tender to palpation. Surrounding skin soft. Plan to keep pt in ICU. Order CXR, UA, Tylenol given by RN. Dr Colin aware.
[2024-08-06 16:45] LABS: Glucose - Point of Care 68 mg/dl (70-99)
--- NOTE | 2024-08-06 16:51 | W.PN.UPDATE ---
Update Note
Progress Note Update
Fever up to 102.
Patient did report sore throat and mild cough earlier today.
Denies sputum production. Denies shortness of breath at rest.
Mild right basilar crackles
Chest x-ray minimal right middle lobe suspect atelectasis-empirically started on antibiotic for pneumonia.
Incentive spirometry. Right basilar abnormality may be from atelectasis.
Check UA follow fever curve
Repeat CBC tomorrow
Patient will be kept in the ICU.
[2024-08-06] MEDS: ZITHROMAX 500 MG PO (16:59)
[2024-08-06] MEDS: MIRALAX 17 GRAMS PO (16:59)
--- NOTE | 2024-08-06 17:00 | PTCARENOTE ---
Glucose 68. Juice given per protocol. Rechecked and glucose 70. Dinner ordered and will recheck at 1850
[2024-08-06 17:01] LABS: Glucose - Point of Care 70 mg/dl (70-99)
[2024-08-06] MEDS: LOVENOX 40 MG SC (18:06)
[2024-08-06] MEDS: STERILE WATER FOR INJECTION 10 ML IV (18:07)
[2024-08-06] MEDS: ROCEPHIN 1000 MG IV (18:07)
[2024-08-06 18:58] LABS: Glucose - Point of Care 83 mg/dl (70-99)
--- NOTE | 2024-08-06 20:50 | PTCARENOTE ---
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 mild L Fem site pain- tolerable per pt at this time. NV checks intact. L Fem ROSMERY drsg intact. BG recheck 82- discussed with HollisNP & night insulin dose adjusted per DEC.
UA to lab. POC discussed, call sony w/pt.
[2024-08-06] MEDS: COLACE 100 MG PO (21:13)
[2024-08-06 21:17] LABS: Glucose - Point of Care 82 mg/dl (70-99)
[2024-08-06 21:49] LABS: Urine Albumin Trace (Neg - Trace); Urine Bilirubin 1+ (Negative); Urine Character Clear (Clear); Urine Color Yellow; Urine Glucose Negative (Negative); Urine Ketone Negative (Negative); Urine Leukocyte Trace (Negative); Urine Nitrite Negative (Negative); Urine Occult Blood Negative (Negative); Urine Urobilinogen Negative (Neg - 1+)
[2024-08-06 22:08] LABS: Urine Bacteria Few (Negative); Urine Red Blood Cell 0-2 /HPF (0-2); Urine White Cell 0-2 /HPF (0-5)
[2024-08-07] VITALS (15 sets, daily range): BP systolic 98–118; BP diastolic 48–74; BMI 40.8
--- NOTE | 2024-08-07 03:30 | PTCARENOTE ---
no changes in pt assessment.
[2024-08-07 04:03] LABS: Glucose - Point of Care 82 mg/dl (70-99)
[2024-08-07 04:13] LABS: Hematocrit 28.5 % (39.0-52.0); Hemoglobin 10.2 g/dL (13.0-18.0); Mean Corp Hgb Conc. 35.8 g/dL (33.0-37.0); Mean Corpuscular Volume 92.2 fL (80.0-94.0); Platelet Count 192 10^3/uL (130-400); Red Blood Cell Count 3.09 10^6/uL (4.70-6.10); Red Cell Dist. Width 14.5 % (11.5-14.5); White Blood Cell Count 13.3 10^3/uL (4.8-10.8)
[2024-08-07 04:43] LABS: Blood Urea Nitrogen 31 mg/dl (9-20); Calcium 8.6 mg/dl (8.4-10.2); Carbon Dioxide 24 mmol/L (22-30); Chloride 98 mmol/L (98-107); Estimated Creatinine Clearance 55 ml/min; Glucose 75 mg/dl (70-99); Potassium 3.6 mmol/L (3.5-5.1); Sodium 134 mmol/L (135-145); eGFR 48.55
--- NOTE | 2024-08-07 07:19 | W.PN.VS ---
Addendum entered and electronically signed by Arnaldo Perez III, MD 08/07/24 08:19:
This patient was seen and examined with LEYLA Grider. I agree with the history and physical exam as well as the assessment and plan.
Signed:
Arnaldo Perez III, MD
[facility] Vascular Surgery
[phone] (lcvx)
Original Note:
Today's Communication / Plan
-
Seen and assessed with Dr. Perez
Assessment/Plan
-
POD 3 left femoral endarterectomy with on table diagnostic right lower extremity arteriogram
Plan:
-Follow fever curve, if patient febrile again will order blood cultures
-Continue antibiotics
-PT/OT
-Ambulate
-Appreciate diabetic management
-Case management working on placement
Subjective Data
-
Date of Service: August 07, 2024
Patient bedside this am with Dr. Perez. Patient offers no complaints at this time, slept well overnight. No events overnight. No further fevers. Vital signs stable
Objective Data
-
Vital Signs
Temp Pulse Resp BP Pulse Ox
98.8 F 76 20 116/55 91
08/07/24 03:42 08/07/24 06:00 08/07/24 06:00 08/07/24 06:00 08/07/24 06:00
Intake and Output
08/06/24 08/07/24 08/08/24
06:59 06:59 06:59
Intake Total 1370 / 1370
Output Total 1950 / 1950 425 / 425
Balance -580 / -580 -425 / -425
Intake:
Oral fluids 1290 / 1290
IV fluids (Total) 80 / 80
Nss 1,000 ml @ 80 mls/hr IV . 80 / 80
[id number] ROSMERY Rx#:[id number]
Output:
Urine, Perez 200 / 200
Urine, Voided 1750 / 1750 425 / 425
Lab Results
08/07/24 03:51
08/07/24 03:51
Calcium 8.6 mg/dl (8.4-10.2) 08/07/24 03:51
Physical Exam
-
AAOx3
No tachypnea on room air
No tachycardia
Abdomen soft
Left groin site dressing clean, dry, intact. No drainage noted
Bilateral feet warm, pink. Doppler PT and DP signals +
[2024-08-07] MEDS: ZITHROMAX 500 MG PO (08:05)
[2024-08-07] MEDS: PROTONIX 40 MG PO (08:05)
[2024-08-07] MEDS: MAG-TAB SR 84 MG PO ×2 (08:06→20:44)
[2024-08-07] MEDS: LIPITOR 40 MG PO (08:06)
[2024-08-07] MEDS: ASPIR LOW (ENTERIC COATED) 81 MG PO (08:06)
[2024-08-07] MEDS: GLUCOPHAGE 1000 MG PO ×2 (08:06→20:43)
[2024-08-07] MEDS: COLACE 100 MG PO ×2 (08:07→20:43)
[2024-08-07] MEDS: ZESTRIL PO (08:07)
[2024-08-07] MEDS: DILANTIN 200 MG PO ×2 (08:07→20:44)
[2024-08-07] MEDS: MIRALAX 17 GRAMS PO (08:09)
[2024-08-07] MEDS: NORVASC PO (08:09)
[2024-08-07] MEDS: ORETIC PO (08:10)
[2024-08-07] MEDS: TYLENOL 650 MG PO ×3 (08:11→22:35)
[2024-08-07] MEDS: NOVOLOG FLEXPEN-MODERATE RESISTANCE SC ×2 (08:19→17:00)
[2024-08-07 08:29] LABS: Glucose - Point of Care 142 mg/dl (70-99)
[2024-08-07] MEDS: HUMULIN R U-500 (CONCENTRATED) 75 UNITS SC (09:30)
[2024-08-07] MEDS: ROXICODONE 5 MG PO ×3 (11:12→22:34)
--- NOTE | 2024-08-07 11:29 | W.PN.INTV ---
Today's Communication / Plan
Recommendations
Continue to monitor fevers
Monitor leukocytosis
Continue antibiotics-consider transition to oral antibiotics Augmentin tomorrow if continues to improve
Incentive spirometry
Increase activity as able
Will follow
Assessment
-
Status post:Left femoral endarterectomy with bovine pericardium patch angioplasty, diagnostic right lower extremity arteriogram-Dr. Colin 08/04/2024
Conditions present prior admission:
History of peripheral arterial disease discovered on CT from 06/09/2024
History of Crohn's disease
Hypercholesterolemia
Hypertension
Type 2 diabetes
History of pancreatitis
Coronary artery disease
GERD
Obstructive sleep apnea
BPH
Glaucoma
Former smoker
Seizure disorder
Chest x-ray 07/30/2024-showed no acute abnormalities
Assessment and plan:
Postoperative day 3
Develop a fever 08/06/2024-no more fevers
mild leukocytosis
Nontoxic/no oxygen requirement
Minimal coughing
Chest x-ray with possible right lower lobe abnormality
Crackles on exam
Mild coughing
No oxygen requirements
UA is normal
Blood cultures if febrile again
No aspiration clinically.
Started antibiotics for pneumonia. If continues to be afebrile transition to oral antibiotics Augmentin for additional 5 days.
Neurologically and hemodynamically stable.
Distal pulses present
Extremities are warm
Increase activity as able
-
Neuro and vascular checks per protocol
groin incision without hematoma
Vascular surgery following-correspondence and operative notes reviewed
Possible discharge today
Follow blood sugars-
Insulin supplementation as needed
Nurse practitioner following the patient
DVT prophylaxis-heparin subcu
Will continue to follow briefly.
Subjective Dataa
Subjective Data
Date of Service:
Date of Service: August 07, 2024
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
Subjective:
He denies any particular complaints .
no significant phlegm
Denies shortness of breath at rest
No further fevers
Pain is controlled
Review of Systems
General: Fever (n)
Cardiopulmonary: Dyspnea (n) and Cough (n)
GI: Abdominal Pain (n)
Objective Data
Data Reviewed
Vital Signs / I&O / Oxygen:
Vital Signs
Temp Pulse Resp BP Pulse Ox
98.8 F 79 17 110/58 98
08/07/24 03:42 08/07/24 08:10 08/07/24 08:00 08/07/24 08:10 08/07/24 08:39
Intake and Output
08/06/24 08/07/24 08/08/24
06:59 06:59 06:59
Intake Total 1370 / 1370 240 / 240
Output Total 1950 / 1950 425 / 425 300 / 300
Balance -580 / -580 -425 / -425 -60 / -60
SaO2 98
Physical Exam
General: Comfortable
HEENT: Normocephalic
Cardiovascular: S1-S2
Respiratory: Crackles (right base) and Non-Labored Respirations
GI: Soft and Non Distended
Neurology: Awake, AO x 3 and No Motor Deficits
Skin: Warm and Other (Incision is intact without evidence of bleeding- no hematoma)
Labs/Micro/Reports
Lab Data
08/07/24 03:51
08/07/24 03:51
[2024-08-07] MEDS: NOVOLOG FLEXPEN-MODERATE RESISTANCE 1 UNITS SC (12:26)
[2024-08-07] MEDS: HUMULIN R U-500 (CONCENTRATED) 40 UNITS SC (12:27)
[2024-08-07 12:35] LABS: Glucose - Point of Care 166 mg/dl (70-99)
--- NOTE | 2024-08-07 13:25 | PTCARENOTE ---
Update to vascular team this am. Following vascular checks, VS trends. ABX as ordered. Continue with Incentive spirometer cough and deep breath exercises. Mobility and PT/OT. Patient with resilience to moving this am. Incisional pain well managed
following medications via Emar. Update family at bedside this shift. Continue accu data trends, follow up coverage. Continue ongoing teaching and supportive cares
[2024-08-07 16:58] LABS: Glucose - Point of Care 123 mg/dl (70-99)
[2024-08-07] MEDS: LOVENOX 40 MG SC (17:07)
[2024-08-07] MEDS: STERILE WATER FOR INJECTION 10 ML IV (17:07)
[2024-08-07] MEDS: ROCEPHIN 1000 MG IV (17:08)
--- NOTE | 2024-08-07 18:04 | TRANSFER ---
Patient transferred to [address] [place] [address] 2110 from ICU.Patient is alert and oriented.He rates his pain at a 3 out of 10.Vital signs are stable.The patient is sitting in the chair with the call cardoza in reach.
[2024-08-07 21:13] LABS: Glucose - Point of Care 159 mg/dl (70-99)
[2024-08-07] MEDS: HUMULIN R U-500 (CONCENTRATED) 60 UNITS SC (22:25)
[2024-08-08 03:55] VITALS: BP 111/58
[2024-08-08 07:25] VITALS: BP 134/66
[2024-08-08 08:05] LABS: Glucose - Point of Care 106 mg/dl (70-99)
--- NOTE | 2024-08-08 08:35 | W.PN.VS ---
Today's Communication / Plan
-
.
Assessment/Plan
-
S/P Left femoral endarterectomy. Doing well.
Plan:
-OOB; PT/OT
-Keep ROSMERY
Subjective Data
-
Date of Service: August 08, 2024
No complaints
No events
Doing well sitting up in chair
In good spirits this AM
Ate b'fast without a problem
No significant pain
Objective Data
-
Vital Signs
Temp Pulse Resp BP Pulse Ox
99.2 F 87 18 134/66 99
08/08/24 07:25 08/08/24 07:25 08/08/24 07:25 08/08/24 07:25 08/08/24 07:25
Intake and Output
08/07/24 08/08/24 08/09/24
06:59 06:59 06:59
Intake Total 960 / 960
Output Total 425 / 425 1105 / 1105
Balance -425 / -425 -145 / -145
Intake:
Oral fluids 960 / 960
Output:
Urine, Voided 425 / 425 1105 / 1105
Other:
Number of approximated SMALL 1
amounts of urine
How many times incontinent 1
SATURATED amount urine
Calcium 8.6 mg/dl (8.4-10.2) 08/07/24 03:51
Physical Exam
-
Comfortable
Alert/oriented
Non labored breathing
Left leg with stable edema
ROSMERY holding suction
Foot warm
[2024-08-08 08:38] LABS: Hematocrit 28.6 % (39.0-52.0); Hemoglobin 9.7 g/dL (13.0-18.0); Mean Corp Hgb Conc. 33.9 g/dL (33.0-37.0); Mean Corpuscular Hgb 31.6 pg (27.0-31.0); Mean Corpuscular Volume 93.2 fL (80.0-94.0); Mean Platelet Volume 9.3 fL (7.4-10.4); Platelet Count 229 10^3/uL (130-400); Red Blood Cell Count 3.07 10^6/uL (4.70-6.10); Red Cell Dist. Width 14.6 % (11.5-14.5); White Blood Cell Count 11.3 10^3/uL (4.8-10.8)
[2024-08-08 09:10] LABS: Blood Urea Nitrogen 38 mg/dl (9-20); Calcium 8.4 mg/dl (8.4-10.2); Carbon Dioxide 24 mmol/L (22-30); Chloride 98 mmol/L (98-107); Estimated Creatinine Clearance 59 ml/min; Glucose 70 mg/dl (70-99); Potassium 4.1 mmol/L (3.5-5.1); Sodium 135 mmol/L (135-145); eGFR 52.74
[2024-08-08] MEDS: ROXICODONE 5 MG PO ×3 (09:31→21:04)
[2024-08-08] MEDS: NOVOLOG FLEXPEN-MODERATE RESISTANCE SC ×2 (09:31→16:44)
[2024-08-08] MEDS: TYLENOL 650 MG PO ×3 (09:32→21:05)
[2024-08-08] MEDS: ZESTRIL 40 MG PO (09:33)
[2024-08-08] MEDS: ZITHROMAX 500 MG PO (09:33)
[2024-08-08] MEDS: MIRALAX 17 GRAMS PO (09:34)
[2024-08-08] MEDS: DILANTIN 200 MG PO ×2 (09:34→20:50)
[2024-08-08] MEDS: NORVASC 5 MG PO (09:34)
[2024-08-08] MEDS: ASPIR LOW (ENTERIC COATED) 81 MG PO (09:34)
[2024-08-08] MEDS: COLACE 100 MG PO ×2 (09:34→20:49)
[2024-08-08] MEDS: PROTONIX 40 MG PO (09:34)
[2024-08-08] MEDS: ORETIC 25 MG PO (09:35)
[2024-08-08] MEDS: GLUCOPHAGE 1000 MG PO ×2 (09:35→20:50)
[2024-08-08] MEDS: LIPITOR 40 MG PO (09:36)
[2024-08-08] MEDS: MAG-TAB SR 84 MG PO ×2 (09:36→20:50)
[2024-08-08] MEDS: HUMULIN R U-500 (CONCENTRATED) 75 UNITS SC (09:54)
[2024-08-08 11:22] VITALS: BP 108/58
[2024-08-08 13:18] LABS: Glucose - Point of Care 222 mg/dl (70-99)
[2024-08-08] MEDS: NOVOLOG FLEXPEN-MODERATE RESISTANCE 3 UNITS SC (13:52)
[2024-08-08] MEDS: HUMULIN R U-500 (CONCENTRATED) SC (13:54)
[2024-08-08 14:39] VITALS: BP 106/56
[2024-08-08] MEDS: HUMULIN R U-500 (CONCENTRATED) 20 UNITS SC (14:41)
[2024-08-08 16:36] LABS: Glucose - Point of Care 130 mg/dl (70-99)
[2024-08-08] MEDS: ROCEPHIN 1000 MG IV (17:41)
[2024-08-08] MEDS: LOVENOX 40 MG SC (17:41)
[2024-08-08] MEDS: STERILE WATER FOR INJECTION 10 ML IV (17:41)
[2024-08-08 19:22] VITALS: BP 116/50
[2024-08-08 21:28] LABS: Glucose - Point of Care 260 mg/dl (70-99)
[2024-08-08] MEDS: HUMULIN R U-500 (CONCENTRATED) 60 UNITS SC (23:00)
[2024-08-08 23:05] VITALS: BP 105/60
[2024-08-09 03:50] VITALS: BP 116/53
[2024-08-09 06:59] LABS: Hematocrit 28.4 % (39.0-52.0); Hemoglobin 9.8 g/dL (13.0-18.0); Mean Corp Hgb Conc. 34.5 g/dL (33.0-37.0); Mean Corpuscular Hgb 32.5 pg (27.0-31.0); Mean Platelet Volume 9.2 fL (7.4-10.4); Platelet Count 251 10^3/uL (130-400); Red Blood Cell Count 3.02 10^6/uL (4.70-6.10); Red Cell Dist. Width 14.3 % (11.5-14.5); White Blood Cell Count 9.4 10^3/uL (4.8-10.8)
[2024-08-09 07:34] LABS: Glucose - Point of Care 53 mg/dl (70-99)
--- NOTE | 2024-08-09 07:39 | W.PN.PUL3 ---
Today's Communication / Plan
-
Encourage incentive spirometer use
Monitor for fevers
ABx to complete a 5-day course
Postoperative management as per vascular surgery
PT/OT
Patient doing well with no shortness of breath or cough reported. He has remained afebrile. No additional pulmonary recommendations at this time. Pulmonary service will now sign off. Please reconsult if there are any additional
questions/concerns, or if patient's respiratory status deteriorates.
Assessment
-
Status post:Left femoral endarterectomy with bovine pericardium patch angioplasty, diagnostic right lower extremity arteriogram-Dr. Colin 08/04/2024
Conditions present prior admission:
History of peripheral arterial disease discovered on CT from 06/09/2024
History of Crohn's disease
Hypercholesterolemia
Hypertension
Type 2 diabetes
History of pancreatitis
Coronary artery disease
GERD
Obstructive sleep apnea
BPH
Glaucoma
Former smoker
Seizure disorder
Chest x-ray 07/30/2024-showed no acute abnormalities
Assessment and plan:
Postoperative day 5
Develop a fever 08/06/2024-no more fevers
mild leukocytosis - now resolved
Nontoxic/no oxygen requirement
Minimal coughing which is now resolved
Chest x-ray with possible right lower lobe abnormality
Crackles on exam now resolved
UA is normal with exception of trace leukocyte esterase
Check blood cultures if febrile again
No aspiration clinically.
Started antibiotics for pneumonia. If continues to be afebrile transition to oral antibiotics Augmentin to complete a 5 day course
Neurologically and hemodynamically stable.
Distal pulses present
Extremities are warm
Increase activity as able
-
Neuro and vascular checks per protocol
groin incision without hematoma
Vascular surgery following-correspondence and operative notes reviewed
Follow blood sugars with goal >100 and <180
Insulin supplementation as needed
Nurse practitioner following the patient
DVT prophylaxis-LMWH
Patient doing well with no shortness of breath or cough reported. He has remained afebrile. No additional pulmonary recommendations at this time. Pulmonary service will now sign off. Thank you for allowing us to be involved in the care of this
patient. Please reconsult if there are any additional questions/concerns, or if patient's respiratory status deteriorates.
Total time spent today was 36 minutes for this encounter. Time includes reviewing laboratory test/imaging results, reviewing pertinent medical records, obtaining and reviewing medical history, performing an appropriate exam, ordering medications,
tests and procedures. Time also includes documentation of this encounter, coordinating patient care and communicating with other healthcare professionals. Total time does not include separately billed tests performed on this date of service.
Subjective Data
-
Date of Service:
Date of Service: August 09, 2024
Chief Complaint: Pulmonary Follow Up
Subjective:
Patient seen and evaluated this morning. Pulling 1500-2 L from incentive spirometer. No issues overnight. Currently denies shortness of breath, cough, fevers or chills. Still has some swelling of his left groin. Denies chest pain, HOLT or
abdominal pain.
Review of Systems
General: Other (Negative unless mentioned above)
Objective Data
Data Reviewed
Vital Signs / I&O / Oxygen:
Vital Signs
Temp Pulse Resp BP Pulse Ox
99.7 F 80 18 116/53 97
08/09/24 03:50 08/09/24 03:50 08/09/24 03:50 08/09/24 03:50 08/09/24 03:50
Intake and Output
08/08/24 08/09/24 08/10/24
06:59 06:59 06:59
Intake Total 960 / 960 1380 / 1380
Output Total 1105 / 1105 1775 / 1775
Balance -145 / -145 -395 / -395
SaO2 97
Physical Exam
General: Respiratory Distress (negative) and Comfortable
HEENT: Normocephalic and Anicteric
Cardiovascular: S1-S2 and Peripheral Edema (negative)
Respiratory: Wheeze (negative), Crackles (negative), Rhonchi (negative) and Non-Labored Respirations
GI: Soft, Non Distended, Non Tender and Normal Bowel Sounds
Neurology: AO x 3 and Tremors (negative)
Skin: Warm, Dry, Cyanosis (negative) and Jaundice (negative)
Labs/Micro/Reports
Lab Data
08/09/24 04:57
[2024-08-09 07:52] VITALS: BP 117/63
[2024-08-09 07:58] LABS: Glucose - Point of Care 70 mg/dl (70-99)
--- NOTE | 2024-08-09 08:03 | PN.DE.MGMTRT ---
Insulin Management
- -
08/09/2024: Diabetes management F/U:
74 year old male s/p Left femoral endarterectomy. PMH: CAD, LEONEL, GERD, HTN, PAD, Crohn's disease, Hypercholesterolemia, H/O pancreatitis, BPH, Glaucoma, Former smoker, Seizure disorder and T2DM, current A1C 7.1%, follows Endo Dr. Rogers Biswas at
[place]. Uses CGM FreeStyle Cheryl 3. Current diabetes regimen includes Metformin 1000mg BID and High corrective insulin only.
Was taking U-500, 75 units before breakfast, 40 units before lunch if he eats and 20 units if not lunch and 60 units at 9pm.
Pt awake, A/O x3, sitting up in chair, pleasant, offers no complaints, able to discuss diabetes mgt.
POD #5, doing well. Noted for an episode of Hypoglycemia as low as 34(V) this AM. Pt states he is not eating too much carbs and doesn't have much of an appetite. Will reduce HS insulin to 50 units. Discussed with pt and encouraged him to add carbs
to his meals as permissible with his diet.
Cont U-500, 75 units @breakfast, 40 units @lunch if he eats and 20 units if no lunch and 50 units at 9pm.
Cont moderate corrective insulin with meals.
Diabetes History
- -
Type of Diabetes: 2 requiring insulin
Pre-Admission Diabetes Regimen
08/08/24
06:39
Creatinine 1.4 H
Lab Results
Hemoglobin A1c 7.1 % (4.0-5.6) H 08/05/24 04:16
Insulin Pump Settings
IP Diabetes Regimen
08/08/24 08/08/24 08/08/24
06:39 08:03 13:17
Glucose 70
POC Glucose 106 H 222 H
08/08/24 08/08/24 08/09/24
16:35 21:26 07:33
Glucose
POC Glucose 130 H 260 H 53 L*
08/09/24
07:57
Glucose
POC Glucose 70
Meal type: Dinner
Meal type: Lunch
Meal type: Breakfast
Amount consumed: 80%
Amount consumed: Patient refused
Amount consumed: 100%
Patient Education
[2024-08-09 08:07] LABS: Blood Urea Nitrogen 37 mg/dl (9-20); Calcium 8.7 mg/dl (8.4-10.2); Carbon Dioxide 27 mmol/L (22-30); Chloride 97 mmol/L (98-107); Estimated Creatinine Clearance 63 ml/min; Glucose 34 mg/dl (70-99); Potassium 4.1 mmol/L (3.5-5.1); Sodium 135 mmol/L (135-145); eGFR 57.65
--- NOTE | 2024-08-09 08:11 | W.PN.VS ---
Today's Communication / Plan
-
Patient seen evaluated bedside with Dr. Chema Colin, below plan reviewed with attending.
Assessment/Plan
-
S/P Left femoral endarterectomy. Doing well.
Plan:
-OOB; PT/OT
-Will discontinue phil dressing out of concern for adhesive irritation to skin causing erythema
-Case management following for rehab placement
-Continue antibiotics
Subjective Data
-
Date of Service: August 09, 2024
Patient seen and examined, reports continued discomfort at left groin otherwise with no complaints. Denies nausea, vomiting, fever, and chills.
Objective Data
-
Vital Signs
Temp Pulse Resp BP Pulse Ox
98.8 F 76 18 117/63 94
08/09/24 07:52 08/09/24 07:52 08/09/24 07:52 08/09/24 07:52 08/09/24 07:52
Intake and Output
08/08/24 08/09/24 08/10/24
06:59 06:59 06:59
Intake Total 960 / 960 1380 / 1380
Output Total 1105 / 1105 1775 / 1775
Balance -145 / -145 -395 / -395
Intake:
Oral fluids 960 / 960 1380 / 1380
Output:
Urine, Voided 1105 / 1105 1775 / 1775
Other:
Number of approximated SMALL 1
amounts of urine
Number of approximated MODERATE 1
amounts of urine
How many times incontinent 1
MODERATE amount urine
How many times incontinent 1
SATURATED amount urine
Lab Results
08/09/24 04:57
08/09/24 04:57
Calcium 8.7 mg/dl (8.4-10.2) 08/09/24 04:57
Physical Exam
-
Comfortable, NAD
Alert/oriented
Non labored breathing
Left leg with trace edema
PHIL holding suction, scant erythema noted medial to dressing, no increased swelling, redness or other signs/concerns for infection
Foot warm
[2024-08-09] MEDS: NOVOLOG FLEXPEN-MODERATE RESISTANCE SC (09:09)
[2024-08-09] MEDS: PROTONIX 40 MG PO (09:11)
[2024-08-09] MEDS: ZESTRIL PO (09:11)
[2024-08-09] MEDS: ZITHROMAX 500 MG PO (09:11)
[2024-08-09] MEDS: NORVASC PO (09:12)
[2024-08-09] MEDS: ASPIR LOW (ENTERIC COATED) 81 MG PO (09:12)
[2024-08-09] MEDS: ORETIC PO (09:12)
[2024-08-09] MEDS: MAG-TAB SR 84 MG PO ×2 (09:12→20:02)
[2024-08-09] MEDS: COLACE 100 MG PO ×2 (09:12→20:02)
[2024-08-09] MEDS: GLUCOPHAGE 1000 MG PO ×2 (09:12→20:02)
[2024-08-09] MEDS: LIPITOR 40 MG PO (09:13)
[2024-08-09] MEDS: ROXICODONE 5 MG PO ×3 (09:13→20:03)
[2024-08-09] MEDS: DILANTIN 200 MG PO ×2 (09:13→20:02)
[2024-08-09] MEDS: MIRALAX 17 GRAMS PO (09:14)
[2024-08-09] MEDS: HUMULIN R U-500 (CONCENTRATED) SC (09:16)
[2024-08-09] MEDS: TYLENOL 650 MG PO ×3 (09:21→20:02)
[2024-08-09 11:29] VITALS: BP 123/92
[2024-08-09 12:14] LABS: Glucose - Point of Care 177 mg/dl (70-99)
[2024-08-09] MEDS: NOVOLOG FLEXPEN-MODERATE RESISTANCE 1 UNITS SC (13:05)
[2024-08-09] MEDS: HUMULIN R U-500 (CONCENTRATED) 40 UNITS SC (13:07)
[2024-08-09 15:14] VITALS: BP 145/60
--- NOTE | 2024-08-09 15:25 | PTCARENOTE ---
ROSMERY drain and dressing removed by PA. ABD dressing applied, CDI
--- NOTE | 2024-08-09 15:26 | CM ---
Case management following for discharge planning
Chart reviewed
Continues IV Abx
Dressing d/c'ed
PT/OT following - recs SNF
Choices obtained
Plan - SNF when medically ready
--- NOTE | 2024-08-09 15:40 | PN.CDI ---
CDI
- -
CDI:
Physician Documentation Request
Admit Date: 08/04/24 08:58
Dear Vascular Surgery,
Clinical Indicators:
Cr/GFR trend:
08/06/24 08/07/24
03:28 03:51
Creatinine 1.2 1.5 H
eGFR > 60.00 48.55
Please clarify which of the following accurately represents the patient's renal status:
SUZANNE
Rise in creatinine only
Other, please specify
Criteria for SUZANNE*
1 Increase in serum creatinine by > or = to 0.3 mg/dL (> or = to 26.5 micromol/L) within 48 hours, OR
2 Increase in serum creatinine to > or = to 1.5 times baseline, which is known or presumed to have occurred within 7 days, OR
3 Urine volume < 0.5 nL/kg/hour for six hours
Use of terms such as suspected, likely, concern for, or probable (associated with a specific diagnosis that is being evaluated, monitored, or treated as if it exists) are acceptable and can be coded in the inpatient setting, when documented at the
time of discharge.
Thank you,
Liv Irby RN BSN
CDI Specialist
available via tiger text
Please use your independent medical judgment in providing your response.
*Source: Kidney Disease: Improving Global Outcomes (KDIGO) 2012
[2024-08-09 17:09] LABS: Glucose - Point of Care 211 mg/dl (70-99)
[2024-08-09] MEDS: LOVENOX 40 MG SC (17:26)
[2024-08-09] MEDS: NOVOLOG FLEXPEN-MODERATE RESISTANCE 3 UNITS SC (17:27)
[2024-08-09] MEDS: STERILE WATER FOR INJECTION 10 ML IV (17:28)
[2024-08-09] MEDS: ROCEPHIN 1000 MG IV (17:28)
[2024-08-09 19:15] VITALS: BP 129/60
[2024-08-09 21:48] LABS: Glucose - Point of Care 178 mg/dl (70-99)
[2024-08-09] MEDS: HUMULIN R U-500 (CONCENTRATED) 50 UNITS SC (22:06)
[2024-08-09 23:40] VITALS: BP 121/60
[2024-08-10] MEDS: TYLENOL 650 MG PO ×2 (02:11→16:21)
[2024-08-10] MEDS: ROXICODONE 5 MG PO ×2 (02:12→16:21)
[2024-08-10 03:44] VITALS: BP 127/64
[2024-08-10] MEDS: NOVOLOG FLEXPEN-MODERATE RESISTANCE SC (06:00)
[2024-08-10 06:02] LABS: Glucose - Point of Care 95 mg/dl (70-99)
--- NOTE | 2024-08-10 06:35 | PTCARENOTE ---
pt is refusing dulcolax suppository for no BM, pt was educated and understands the importance of ambulation and the BM protocol but continues to refuse.
[2024-08-10 06:52] LABS: Hematocrit 27.6 % (39.0-52.0); Hemoglobin 9.5 g/dL (13.0-18.0); Mean Corp Hgb Conc. 34.4 g/dL (33.0-37.0); Mean Corpuscular Hgb 31.6 pg (27.0-31.0); Mean Corpuscular Volume 91.7 fL (80.0-94.0); Platelet Count 283 10^3/uL (130-400); Red Blood Cell Count 3.01 10^6/uL (4.70-6.10); Red Cell Dist. Width 14.2 % (11.5-14.5); White Blood Cell Count 8.6 10^3/uL (4.8-10.8)
[2024-08-10 07:00] VITALS: BP 123/88
[2024-08-10 07:19] LABS: Blood Urea Nitrogen 31 mg/dl (9-20); Calcium 8.7 mg/dl (8.4-10.2); Carbon Dioxide 27 mmol/L (22-30); Chloride 97 mmol/L (98-107); Estimated Creatinine Clearance 69 ml/min; Glucose 60 mg/dl (70-99); Potassium 4.5 mmol/L (3.5-5.1); Sodium 134 mmol/L (135-145); eGFR > 60.00
--- NOTE | 2024-08-10 07:29 | PN.DE.MGMTRT ---
Insulin Management
- -
08/10/2024: Diabetes management Follow up:
74 year old male s/p Left femoral endarterectomy. PMH: CAD, LEONEL, GERD, HTN, PAD, Crohn's disease, Hypercholesterolemia, H/O pancreatitis, BPH, Glaucoma, Former smoker, Seizure disorder and T2DM, current A1C 7.1%, follows Endo Dr. Rogers Maldonado at
[place]. Uses CGM FreeStyle Cheryl 3.
Prior to admission was taking U-500, 75 units before breakfast, 40 units before lunch if he eats and 20 units if no lunch and 60 units at 9pm.
Pt awake, A/O x3, sitting up in bed, pleasant, offers no complaints, able to discuss diabetes mgt. Will have CT scan shortly.
POD #6, doing well. Hypoglycemia, 34 @ 4:57 08/09 and 60 08/10. Will further reduce HS U-500 to 45 units.
Will continue U-500, 75 units @breakfast, 40 units @lunch if he eats and 20 units if no lunch and 45 units at HS.
Cont moderate corrective insulin with meals.
Discussed with patient and nurse.
Diabetes History
- -
Type of Diabetes: 2 requiring insulin
Pre-Admission Diabetes Regimen
08/09/24 08/10/24
04:57 04:49
Creatinine 1.3 1.2
Lab Results
Hemoglobin A1c 7.1 % (4.0-5.6) H 08/05/24 04:16
Insulin Pump Settings
IP Diabetes Regimen
08/09/24 08/09/24 08/09/24
04:57 07:33 07:57
Glucose 34 L*
POC Glucose 53 L* 70
08/09/24 08/09/24 08/09/24
12:12 17:08 21:47
Glucose
POC Glucose 177 H 211 H 178 H
08/10/24 08/10/24
04:49 06:01
Glucose 60 L
POC Glucose 95
Patient Education
--- NOTE | 2024-08-10 08:53 | W.PN.VS ---
Today's Communication / Plan
-
Discussed with Dr. Colin/Dr. Perez
Assessment/Plan
-
S/P Left femoral endarterectomy. Doing well.
Plan:
-CTA abdomen/pelvis to rule out collection this a.m.
-OOB; PT/OT
-Case management following for rehab placement
-Continue antibiotics
Subjective Data
-
Date of Service: August 10, 2024
Patient seen bedside this a.m. Patient left medial thigh tenderness to palpation. Patient admits he was only able to walk a short distance with physical therapy yesterday due to pain in his left thigh. No other events
Objective Data
-
Vital Signs
Temp Pulse Resp BP Pulse Ox
97.6 F 75 18 123/88 98
08/10/24 07:00 08/10/24 07:00 08/10/24 07:00 08/10/24 07:00 08/10/24 07:00
Intake and Output
08/09/24 08/10/24 08/11/24
06:59 06:59 06:59
Intake Total 1380 / 1380 2640 / 2640
Output Total 1774
Balance -395 / -395 690 / 690
Intake:
Oral fluids 1380 / 1380 2640 / 2640
Output:
Urine, Voided 1774
Other:
Number of approximated MODERATE 1
amounts of urine
How many times incontinent 1
MODERATE amount urine
Lab Results
08/10/24 04:49
08/10/24 04:49
Calcium 8.7 mg/dl (8.4-10.2) 08/10/24 04:49
Physical Exam
-
Comfortable, NAD
Alert/oriented
Non labored breathing
Left surgical incision clean, dry, intact, no drainage. From the incision to the medial inner thigh redness, swelling, induration, tender to palpation
From the incision to the lateral thigh there is no redness, swelling, tenderness. Soft throughout
Foot warm
[2024-08-10] MEDS: ASPIR LOW (ENTERIC COATED) 81 MG PO (09:13)
[2024-08-10] MEDS: PROTONIX 40 MG PO (09:13)
[2024-08-10] MEDS: DILANTIN 200 MG PO ×2 (09:13→20:11)
[2024-08-10] MEDS: MIRALAX 17 GRAMS PO (09:13)
[2024-08-10] MEDS: LIPITOR 40 MG PO (09:14)
[2024-08-10] MEDS: MAG-TAB SR 84 MG PO ×2 (09:14→20:12)
[2024-08-10] MEDS: NORVASC 5 MG PO (09:14)
[2024-08-10] MEDS: ZESTRIL 40 MG PO (09:14)
[2024-08-10] MEDS: GLUCOPHAGE 1000 MG PO ×2 (09:14→20:11)
[2024-08-10] MEDS: COLACE 100 MG PO ×2 (09:15→20:11)
[2024-08-10] MEDS: ZITHROMAX 500 MG PO (09:15)
[2024-08-10] MEDS: ORETIC PO (09:17)
[2024-08-10] MEDS: HUMULIN R U-500 (CONCENTRATED) 75 UNITS SC (09:26)
[2024-08-10 09:34] LABS: Glucose - Point of Care 173 mg/dl (70-99)
--- NOTE | 2024-08-10 12:17 | CM ---
Met with patient at bedside.
CT scan today.
PT rec SNF - referrals in [facility] - prefer [facility]
Spoke with Amanda at [facility], will continue to communicate for bed availability
PLAN: SNF, pending bed availability
[2024-08-10 12:29] LABS: Glucose - Point of Care 236 mg/dl (70-99)
[2024-08-10] MEDS: NOVOLOG FLEXPEN-MODERATE RESISTANCE 3 UNITS SC (13:32)
[2024-08-10] MEDS: HUMULIN R U-500 (CONCENTRATED) 40 UNITS SC (13:32)
[2024-08-10 15:00] VITALS: BP 149/68
[2024-08-10 15:35] VITALS: BP 135/79; PULSE 102; O2SAT 98
[2024-08-10 18:21] LABS: Glucose - Point of Care 366 mg/dl (70-99)
[2024-08-10] MEDS: NOVOLOG FLEXPEN-MODERATE RESISTANCE 9 UNITS SC (18:47)
[2024-08-10] MEDS: LOVENOX 40 MG SC (18:48)
[2024-08-10] MEDS: STERILE WATER FOR INJECTION 10 ML IV (18:48)
[2024-08-10] MEDS: ROCEPHIN 1000 MG IV (18:49)
[2024-08-10 19:48] VITALS: BP 121/50
[2024-08-10 21:16] LABS: Glucose - Point of Care 391 mg/dl (70-99)
[2024-08-10] MEDS: HUMULIN R U-500 (CONCENTRATED) 45 UNITS SC (22:49)
[2024-08-10 23:08] VITALS: BP 121/66
[2024-08-11 03:30] VITALS: BP 141/62
--- NOTE | 2024-08-11 04:01 | DOWNTIME ---
There was a [employer] Client [employer] Downtime on 08/11/2024 from 0100 to 08/11/2024 at 0355. Downtime documentation of patient's care, including medication administrations, has been reconciled in the electronic record per guidelines. Refer to the
patient's paper chart under the miscellaneous tab to see printed paper medication records and downtime forms.
[2024-08-11] MEDS: TYLENOL 650 MG PO ×3 (05:23→22:49)
[2024-08-11] MEDS: ROXICODONE 5 MG PO ×3 (05:24→22:49)
--- NOTE | 2024-08-11 07:24 | PN.DE.MGMTRT ---
Insulin Management
- -
08/11/2024: Diabetes management Follow up:
74 year old male s/p Left femoral endarterectomy. PMH: CAD, LEONEL, GERD, HTN, PAD, Crohn's disease, Hypercholesterolemia, H/O pancreatitis, BPH, Glaucoma, Former smoker, Seizure disorder and T2DM, current A1C 7.1%, follows Endo Dr. Rogers Maldonado at
[place]. Uses CGM FreeStyle Cheryl 3.
Prior to admission was taking U-500, 75 units before breakfast, 40 units before lunch if he eats and 20 units if no lunch and 60 units at 9pm.
Pt awake, A/O x3, sitting up in bed, pleasant, offers no complaints, able to discuss diabetes mgt.
POD #7, doing well. Hypoglycemia, 34 @ 4:57 08/09 and 60 08/10. HS U-500 reduced to 45 units.
08/10 Pre meal glucose range 173 to 381, patient received all doses of U500
08/11 Fasting glucose 163. Will continue U-500, 75 units @breakfast, 40 units @lunch if he eats and 20 units if no lunch and 45 units at HS.
Cont moderate corrective insulin with meals.
Discussed with patient and nurse.
Diabetes History
- -
Type of Diabetes: 2 requiring insulin
Pre-Admission Diabetes Regimen
Lab Results
Hemoglobin A1c 7.1 % (4.0-5.6) H 08/05/24 04:16
Insulin Pump Settings
IP Diabetes Regimen
08/10/24 08/10/24 08/10/24
09:32 12:26 18:18
POC Glucose 173 H 236 H 366 H
08/10/24
21:15
POC Glucose 391 H
Patient Education
[2024-08-11 07:42] LABS: Glucose - Point of Care 163 mg/dl (70-99)
[2024-08-11 07:50] VITALS: BP 132/65
[2024-08-11] MEDS: ZESTRIL 40 MG PO (09:09)
[2024-08-11] MEDS: DILANTIN 200 MG PO ×2 (09:10→20:12)
[2024-08-11] MEDS: LIPITOR 40 MG PO (09:10)
[2024-08-11] MEDS: COLACE 100 MG PO ×2 (09:10→20:12)
[2024-08-11] MEDS: GLUCOPHAGE 1000 MG PO ×2 (09:10→20:12)
[2024-08-11] MEDS: PROTONIX 40 MG PO (09:11)
[2024-08-11] MEDS: MAG-TAB SR 84 MG PO ×2 (09:11→20:12)
[2024-08-11] MEDS: ZITHROMAX 500 MG PO (09:11)
[2024-08-11] MEDS: ASPIR LOW (ENTERIC COATED) 81 MG PO (09:11)
[2024-08-11] MEDS: MIRALAX 17 GRAMS PO (09:12)
[2024-08-11] MEDS: NOVOLOG FLEXPEN-MODERATE RESISTANCE 1 UNITS SC ×2 (09:12→11:50)
[2024-08-11] MEDS: ORETIC 25 MG PO (09:12)
[2024-08-11] MEDS: NORVASC 5 MG PO (09:12)
[2024-08-11] MEDS: HUMULIN R U-500 (CONCENTRATED) 75 UNITS SC (09:13)
--- NOTE | 2024-08-11 10:20 | W.PN.VS ---
Addendum entered and electronically signed by Chema Colin MD 08/11/24 15:20:
Seen and examined with [employer] earlier this a.m. This is a late entry. I had reviewed CT scan yesterday as well. Patient notes stable/slightly improved left medial thigh tenderness. Mostly a sensitivity/tenderness. Not significantly hurting at
rest. His exam is stable. Left groin is flat. No hematoma. Incision clean dry and intact. Medial to the incision and down the medial thigh he has what appears to be typical cellulitis. CT scan images reviewed yesterday by me, demonstrates no
evidence of focal fluid collection. There is stranding in the soft tissue/subcutaneous tissues in the medial thigh. This is all consistent with a cellulitis. Will continue IV antibiotic coverage for 24 hours, with good skin coverage. Hopefully
cellulitis improves. No signs or symptoms or CT findings to suggest any gas gangrene organism. Will watch for the next 24 hours. If improved tomorrow we will likely discharge to rehab on p.o. antibiotics.
Original Note:
Today's Communication / Plan
-
Patient seen and examined at bedside with Dr. Chema Colin below plan reviewed with attending
Assessment/Plan
-
S/P Left femoral endarterectomy.
Plan:
-OOB; PT/OT
-Case management following for rehab placement
-Antibiotics adjusted for broader coverage, suspect superficial cellulitis given no collection of CTA ABD/pelvis, will continue to observe over 24 hours with IV antibiotics if demonstrates improvement will transition to PO and patient will be
cleared for rehab placement/discharge.
Subjective Data
-
Date of Service: August 11, 2024
Patient seen and examined reports continued pain and erythema medial to incision at left groin. Denies nausea, vomiting, fever, and chills.
Objective Data
-
Vital Signs
Temp Pulse Resp BP Pulse Ox
98.7 F 74 19 132/65 97
08/11/24 07:50 08/11/24 07:50 08/11/24 07:50 08/11/24 07:50 08/11/24 07:50
Intake and Output
08/10/24 08/11/24 08/12/24
06:59 06:59 06:59
Intake Total 2640 / 2640 840 / 840
Output Total 1949 1160 / 1160
Balance 690 / 690 -320 / -320
Intake:
Oral fluids 2640 / 2640 840 / 840
IV fluids (Total) 0 / 0
IV piggybacks 0 / 0
Output:
Urine, Voided 1949 1160 / 1160
Other:
Number of approximated MODERATE 1
amounts of urine
Lab Results
08/10/24 04:49
08/10/24 04:49
Calcium 8.7 mg/dl (8.4-10.2) 08/10/24 04:49
Physical Exam
-
Comfortable, NAD
Alert/oriented
Non labored breathing
Left surgical incision clean, dry, intact, no drainage. From the incision to the medial inner thigh redness, swelling, induration, tender to palpation
From the incision to the lateral thigh there is no redness, swelling, tenderness. Soft throughout
Foot warm
--- NOTE | 2024-08-11 10:40 | PHA.VAN.IN ---
Assessment
- Assessment
Renal Function: Unknown baseline
Concomitant Antimicrobials: cefazolin
Plan
- Plan
Initial / Loading Dose: 2000mg - administration pending
Maintenance Regimen: dosing by level
Monitoring: random 08/12 600
Pharmacokinetics Vancomycin I
- -
Patient Age: 74
Patient Sex: Male
Vancomycin Day #: 1
Indication: Skin And Soft Tissue
Requesting Provider: Jeremiah Mcleod
Pertinent Antimicrobial Allergies:
sulfonamide antibiotics - itching
Height / Weight:
Height 5 ft 8 in
Actual Weight 121.6 kg
Pertinent Past Medical History: BMI ~41, DM 2
- Vital Signs / Lab Results
Temp Pulse Resp BP Pulse Ox
98.7 F 74 19 132/65 97
08/11/24 07:50 08/11/24 07:50 08/11/24 07:50 08/11/24 07:50 08/11/24 07:50
Lab Results - Hematology
08/09/24 08/10/24
04:57 04:49
WBC 9.4 8.6
Lab Results - Chemistry
08/09/24 08/10/24
04:57 04:49
BUN 37 H 31 H
Creatinine 1.3 1.2
Estimated Creat Clear 63 69
[2024-08-11 11:27] VITALS: BP 122/59
[2024-08-11 11:42] LABS: Glucose - Point of Care 184 mg/dl (70-99)
[2024-08-11] MEDS: VANCOCIN 540 MG IV (11:49)
[2024-08-11] MEDS: ANCEF 10 IV ×2 (11:49→20:11)
[2024-08-11] MEDS: HUMULIN R U-500 (CONCENTRATED) 40 UNITS SC (11:50)
--- NOTE | 2024-08-11 14:58 | CM ---
Case management following for discharge planning
Chart reviewed
Remains on IV antibiotics
For SNF when medically ready - prefers [facility]
CM will review bed status closer to discharge
Plan - SNF at discharge - prefers [facility]
[2024-08-11 15:42] VITALS: BP 118/63
[2024-08-11 16:47] LABS: Glucose - Point of Care 74 mg/dl (70-99)
[2024-08-11] MEDS: NOVOLOG FLEXPEN-MODERATE RESISTANCE SC (17:35)
[2024-08-11] MEDS: LOVENOX 40 MG SC (17:36)
[2024-08-11 21:51] LABS: Glucose - Point of Care 99 mg/dl (70-99)
[2024-08-11] MEDS: HUMULIN R U-500 (CONCENTRATED) 22 UNITS SC (23:07)
[2024-08-11 23:16] VITALS: BP 123/57
[2024-08-12 03:15] VITALS: BP 130/61
[2024-08-12] MEDS: ANCEF 10 IV (03:54)
[2024-08-12 05:31] LABS: Hematocrit 28.9 % (39.0-52.0); Hemoglobin 10.2 g/dL (13.0-18.0); Mean Corp Hgb Conc. 35.3 g/dL (33.0-37.0); Mean Corpuscular Hgb 32.4 pg (27.0-31.0); Mean Corpuscular Volume 91.7 fL (80.0-94.0); Mean Platelet Volume 8.7 fL (7.4-10.4); Platelet Count 309 10^3/uL (130-400); Red Blood Cell Count 3.15 10^6/uL (4.70-6.10); Red Cell Dist. Width 14.1 % (11.5-14.5); White Blood Cell Count 8.7 10^3/uL (4.8-10.8)
[2024-08-12 05:46] LABS: Blood Urea Nitrogen 34 mg/dl (9-20); Calcium 8.7 mg/dl (8.4-10.2); Carbon Dioxide 24 mmol/L (22-30); Chloride 98 mmol/L (98-107); Estimated Creatinine Clearance 63 ml/min; Glucose 65 mg/dl (70-99); Potassium 4.7 mmol/L (3.5-5.1); Sodium 136 mmol/L (135-145); eGFR 57.65
[2024-08-12 07:25] VITALS: BP 109/51
--- NOTE | 2024-08-12 07:28 | PN.DE.MGMTRT ---
Insulin Management
- -
08/12/2024: Diabetes management Follow up:
74 year old male s/p Left femoral endarterectomy. PMH: CAD, LEONEL, GERD, HTN, PAD, Crohn's disease, Hypercholesterolemia, H/O pancreatitis, BPH, Glaucoma, Former smoker, Seizure disorder and T2DM, current A1C 7.1%, follows Endo Dr. Rogers aMldonado at
[place]. Uses CGM FreeStyle Cheryl 3.
Prior to admission was taking U-500, 75 units before breakfast, 40 units before lunch if he eats and 20 units if no lunch and 60 units at 9pm.
Pt awake, A/O x3, sitting up in bed, pleasant, offers no complaints, able to discuss diabetes mgt.
POD #8, doing well. Hypoglycemia, 34 @ 4:57 08/09 and 60 08/10. HS U-500 reduced to 45 units.
08/11 Fasting glucose 163, pre dinner glucose 74, HS 99. U-500 dose reduced from 45 units to 22 units.
08/12 Fasting glucose 65. Will discuss with patient overall need to reduce insulin doses at lunch and dinner.
Reduce moderate to low corrective insulin with meals. Lunch U-500 dose to 30 and HS to 20 units.
Discussed with patient and nurse.
Diabetes History
- -
Type of Diabetes: 2 requiring insulin
Pre-Admission Diabetes Regimen
08/12/24
04:57
Creatinine 1.3
Lab Results
Hemoglobin A1c 7.1 % (4.0-5.6) H 08/05/24 04:16
Insulin Pump Settings
IP Diabetes Regimen
08/11/24 08/11/24 08/11/24
07:40 11:41 16:46
Glucose
POC Glucose 163 H 184 H 74
08/11/24 08/12/24
21:44 04:57
Glucose 65 L
POC Glucose 99
Meal type: Breakfast
Amount consumed: 100%
Patient Education
[2024-08-12 07:29] LABS: Glucose - Point of Care 129 mg/dl (70-99)
--- NOTE | 2024-08-12 08:14 | PHA.VAN.FU ---
Vancomycin Assessment / Plan
- Assessment
Renal Function: Stable
WBC's are: WNL
In the past 24 hrs, patient has been: Afebrile
Concomitant Antimicrobials: cefazolin
- Assessment - Therapeutic Drug Monitoring
Random Level: 9 - drawn ~17H after 2g loading dose
- Dosing Plan
Dosing by Level: Re-dose today (Vanc 1500mg)
- Monitoring Plan
Random Level: 08/13 0600
- Follow Up
Pharmacy will continue to follow.
Vancomycin Follow UP
- -
Patient Age: 74
Patient Sex: Male
Vancomycin Day #: 2
Indication: Skin And Soft Tissue
Requesting Provider: Jeremiah Mcleod
Pertinent Antimicrobial Allergies:
sulfonamide antibiotics - itching
Height / Weight:
Height 5 ft 8 in
Actual Weight 121.6 kg
Pertinent Past Medical History: BMI ~41, DM 2
- Vital Signs / Lab Results
Temp Pulse Resp BP Pulse Ox
97.4 F 64 18 130/61 98
08/12/24 03:15 08/12/24 03:15 08/12/24 03:15 08/12/24 03:15 08/12/24 03:15
Lab Results - Hematology
08/10/24 08/12/24
04:49 04:57
WBC 8.6 8.7
Lab Results - Chemistry
08/10/24 08/12/24
04:49 04:57
BUN 31 H 34 H
Creatinine 1.2 1.3
Estimated Creat Clear 69 63
Therapeutic Drug Monitoring
Random Vancomycin 9.0 ug/ml 08/12/24 04:57
--- NOTE | 2024-08-12 08:16 | W.PN.VS ---
Addendum entered and electronically signed by Chema Colin MD 08/12/24 11:58:
Seen and examined with [employer]. Agree with findings as noted below. Improving cellulitis left medial thigh. Incision clean dry and intact. Feet are both warm. Plan/as discussed and noted below.
Original Note:
Today's Communication / Plan
-
Seen and assessed with Dr. Colin
Assessment/Plan
-
S/P Left femoral endarterectomy. Doing well.
Plan:
-Patient ready for discharge when bed available
-Continue p.o. antibiotics on discharge
Subjective Data
-
Date of Service: August 12, 2024
Patient seen at bedside this a.m. with Dr. Colin. Patient admits leg is becoming less painful, more tolerable when walking. No events overnight.
Objective Data
-
Vital Signs
Temp Pulse Resp BP Pulse Ox
97.4 F 64 18 130/61 98
08/12/24 03:15 08/12/24 03:15 08/12/24 03:15 08/12/24 03:15 08/12/24 03:15
Intake and Output
08/11/24 08/12/24 08/13/24
06:59 06:59 06:59
Intake Total 840 / 840 1979 / 1979
Output Total 1160 / 1160 320 / 320
Balance -320 / -320 1660 / 1660
Intake:
Oral fluids 840 / 840 1440 / 1440
IV fluids (Total) 0 / 0
IV piggybacks 0 / 0 540 / 540
Output:
Urine, Voided 1160 / 1160 320 / 320
Other:
Number of approximated MODERATE 1 1
amounts of urine
Number of approximated LARGE 1
amounts of urine
Lab Results
08/12/24 04:57
08/12/24 04:57
Calcium 8.7 mg/dl (8.4-10.2) 08/12/24 04:57
Physical Exam
-
Comfortable, NAD
Alert/oriented
Non labored breathing
Left surgical incision clean, dry, intact, no drainage. Redness decreased significantly from yesterday, now only located at the medial thigh
From the incision to the lateral thigh there is no redness, swelling, tenderness. Soft throughout
Foot warm
--- NOTE | 2024-08-12 08:35 | W.PN.UPDATE ---
Update Note
Progress Note Update
CDI:
Physician Documentation Request
Admit Date: 08/04/24 08:58
Clinical Indicators:
Cr/GFR trend:
08/06/24 08/07/24
03:28 03:51
Creatinine 1.2 1.5 H
eGFR > 60.00 48.55
Please clarify which of the following accurately represents the patient's renal status:
Rise in creatinine only has returned to baseline
[2024-08-12] MEDS: TYLENOL 650 MG PO ×2 (08:51→13:34)
[2024-08-12] MEDS: ROXICODONE 5 MG PO ×2 (08:51→13:34)
[2024-08-12] MEDS: NORVASC PO (08:53)
[2024-08-12] MEDS: COLACE 100 MG PO (08:54)
[2024-08-12] MEDS: ASPIR LOW (ENTERIC COATED) 81 MG PO (08:54)
[2024-08-12] MEDS: GLUCOPHAGE 1000 MG PO (08:55)
[2024-08-12] MEDS: DILANTIN 200 MG PO (08:55)
[2024-08-12] MEDS: LIPITOR 40 MG PO (08:55)
[2024-08-12] MEDS: MAG-TAB SR 84 MG PO (08:55)
[2024-08-12] MEDS: MIRALAX PO (08:56)
[2024-08-12] MEDS: PROTONIX 40 MG PO (08:56)
[2024-08-12] MEDS: ORETIC PO (08:56)
[2024-08-12] MEDS: ZESTRIL PO (08:56)
[2024-08-12] MEDS: VISBIOME 1 CAP PO (09:01)
[2024-08-12] MEDS: HUMULIN R U-500 (CONCENTRATED) 75 UNITS SC (09:02)
[2024-08-12] MEDS: VANCOCIN 300 MG IV (09:07)
[2024-08-12] MEDS: NOVOLOG FLEXPEN-MODERATE RESISTANCE SC ×2 (09:07→13:42)
[2024-08-12] MEDS: VANCOCIN 300 ML IV (09:07)
[2024-08-12] MEDS: FLUSH (NSS) 1 FLUSH IV (09:08)
--- NOTE | 2024-08-12 09:56 | CM ---
Pt medically ready for discharge
Pt for SNF - prefers [facility]
Amanda at [facility] - reports can accept
Discussed IMM
Plan - transfer to [facility]
R - [phone]
F - [phone]
--- NOTE | 2024-08-12 09:57 | W.DS.TRANS ---
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
-
Discharge Instructions:
Discharge Diagnosis/Procedures Extensive left ilio-femoral endarterectomy (very
distal left external iliac artery, common
femoral artery, proximal superficial femoral
artery, origin of profunda femoris) with long
bovine pericardial patch angioplasty.
Aortogram/pelvic angiogram and right lower
extremity arteriogram with selective
catheterization of right superficial femoral
artery via puncture of left common femoral
artery patch.
Diet As tolerated
Activity No strenuous activity
Driving Restrictions Not until seen by your Dr
Bathing Restrictions OK to Shower
Instructions:
Stand-Alone Forms: DC Instr - Vascular OR
Changes to Home Medications: Yes
Discharge Medications:
DC Medications w/original date entered in [facility]
atorvastatin 40 mg tablet 40 mg PO DAILY High cholesterol 07/19/21
fluticasone propionate 50 mcg/actuation nasal spray,suspension 2 spray intranasal DAILY Allergies 07/19/21
phenytoin sodium extended 100 mg capsule 200 mg PO BID Seizures 07/19/21
pantoprazole 40 mg tablet,delayed release 40 mg PO DAILY Gastrointestinal issue 07/27/21
magnesium 200 mg tablet 400 mg PO BID Electrolyte Repletion 07/10/22
metformin 1,000 mg tablet 1,000 mg PO BID Diabetes 07/10/22
amlodipine 5 mg tablet 5 mg PO DAILY Blood pressure #1 tab 08/02/22
lisinopril 20 mg-hydrochlorothiazide 12.5 mg tablet 2 tab PO DAILY Blood pressure #1 tab 08/02/22
acetaminophen 500 mg tablet (Acetaminophen Extra Strength) 1,000 mg PO PRN PRN pain 07/28/24
aspirin 81 mg tablet,delayed release 81 mg PO DAILY Blood Clot Prevention/Tx 07/28/24
semaglutide 0.25 mg or 0.5 mg (2 mg/1.5 mL) subcutaneous pen injector (Ozempic) 0.5 mg SC QWEEK Diabetes 08/04/24
oxycodone 5 mg tablet 5 mg PO Q4HPRN PRN moderate pain #10 tabs 08/06/24
amoxicillin 500 mg capsule 500 mg PO Q8H 7 days #21 caps 08/12/24
docusate sodium 100 mg capsule 100 mg PO BID #20 caps 08/12/24
doxycycline hyclate 100 mg capsule 100 mg PO Q12 7 days #14 caps 08/12/24
insulin regular hum U-500 conc 500 unit/mL(3 mL) subcut pen (Humulin R U-500 (Conc) Insulin Kwikpen) 40 - 75 unit (0.08 - 0.15 mL) SC DIRECTED Diabetes #0 mL 08/12/24
Home Medication Changes
Added doxycycline and amoxicillin-for cellulitis
Added oxycodone for pain management
Colace for BM
Adjusted insulin dosing
Pending Results: No
[2024-08-12 11:10] VITALS: BP 118/69
--- NOTE | 2024-08-12 14:21 | PTCARENOTE ---
pt discharged to [facility], [place] via van. unfortunately, pt did not eat breakfast until 1130 this am. pt therefore did not eat lunch. report given to Vane at [facility] and explained pt did not have lunch prior to discharge. lunch insulin
not given.
--- NOTE | 2024-08-12 16:02 | W.PN.UPDATE ---
Update Note
Progress Note Update
I originally sent all prescriptions to [email or web address] (for Angi [facility]ir). I was notified [place] no longer uses [email or web address] and now uses [facility]. I canceled all medications to [email or web address] and electronically sent medications to [email or web address].
== END 2024-08-12 14:15 | DRG 270 ==
LOC: 2 SOUTH 08:58
PROVIDERS: Nurse Practitioner; Nurse Practitioner Acute Care; Nurse Practitioner Family; ADMITTING PHYSICIAN Surgery Vascular Surgery; CONSULT PHYSICIAN Internal Medicine Critical Care Medicine; FAMILY PHYSICIAN Family Medicine
PROC: 04UJ0KZ Supplement Left External Iliac Artery with Nonautologous Tissue Substitute, Open Approach (ICD-10-PCS; 2024-08-04)
PROC: 04CJ0ZZ Extirpation of Matter from Left External Iliac Artery, Open Approach (ICD-10-PCS; 2024-08-04)
PROC: 04JY3ZZ Inspection of Lower Artery, Percutaneous Approach (ICD-10-PCS; 2024-08-04)
DX: E11.51 Type 2 diabetes mellitus with diabetic peripheral angiopathy without gangrene (principal); J18.9 Pneumonia, unspecified organism; K50.90 Crohn's disease, unspecified, without complications; Z68.41 Body mass index [BMI] 40.0-44.9, adult; L03.116 Cellulitis of left lower limb; I70.213 Atherosclerosis of native arteries of extremities with intermittent claudication, bilateral legs; I10 Essential (primary) hypertension; I25.10 Atherosclerotic heart disease of native coronary artery without angina pectoris; G40.909 Epilepsy, unspecified, not intractable, without status epilepticus; E78.2 Mixed hyperlipidemia; G47.33 Obstructive sleep apnea (adult) (pediatric); E66.01 Morbid (severe) obesity due to excess calories; N40.0 Benign prostatic hyperplasia without lower urinary tract symptoms; Z88.2 Allergy status to sulfonamides; Z87.891 Personal history of nicotine dependence; Z79.899 Other long term (current) drug therapy; Z79.84 Long term (current) use of oral hypoglycemic drugs; Z79.82 Long term (current) use of aspirin; Z79.4 Long term (current) use of insulin
CPT/HCPCS: 88304; 88311; 35371; 36415; 71045; 71046; 74174; 75625; 75710; 80048; 80202; 81003; 81015; 82947; 82962; 83036; 85025; 85027; 85610; 85730; 86803; 86850; 86900; 86901; 93005; 97116; 97163; 97167; 97530; 97535; C1769; C1887; C1894; Q9967

== ENCOUNTER 2024-08-14 19:37 | Inpatient (IN) | payer MEDICARE, BC, SELFPAY ==
[2024-08-14 16:41] VITALS: BP 120/55
[2024-08-14 16:42] LABS: Glucose - Point of Care > 600 mg/dl (70-99)
[2024-08-14 16:43] VITALS: BP 120/55
[2024-08-14 16:50] VITALS: BMI 41.2
[2024-08-14 16:54] LABS: % Basophils 0.2 % (0-2); % Eosinophils 0.1 % (0-6); % Immature Granulocytes 1.3 % (0-0.5); % Monocytes 5.6 % (1.7-9.3); % Neutrophils 86.8 % (42.2-75.2); Absolute Immature Granulocytes 0.2 10^3/uL (0-0.05); Absolute Lymphocytes 0.7 10^3/uL (1.2-3.4); Absolute Monocytes 0.7 10^3/uL (0.1-0.6); Absolute Neutrophils 10.5 10^3/uL (1.4-6.5); Hematocrit 26.6 % (39.0-52.0); Hemoglobin 9.6 g/dL (13.0-18.0); Mean Corp Hgb Conc. 36.1 g/dL (33.0-37.0); Mean Corpuscular Hgb 31.4 pg (27.0-31.0); Mean Corpuscular Volume 86.9 fL (80.0-94.0); Mean Platelet Volume 8.6 fL (7.4-10.4); Nucleated Red Blood Cells % 0 % (-); Platelet Count 309 10^3/uL (130-400); Red Blood Cell Count 3.06 10^6/uL (4.70-6.10); Red Cell Dist. Width 14.4 % (11.5-14.5); White Blood Cell Count 12.1 10^3/uL (4.8-10.8)
[2024-08-14 17:13] LABS: ALT (SGPT) 32 U/L (0-50); AST (SGOT) 38 U/L (17-59); Albumin 3.5 g/dl (3.5-5.0); Alkaline Phosphatase 101 U/L (38-126); Blood Urea Nitrogen 40 mg/dl (9-20); Calcium 8.1 mg/dl (8.4-10.2); Carbon Dioxide 19 mmol/L (22-30); Chloride 90 mmol/L (98-107); Estimated Creatinine Clearance 5 ml/min; Glucose 505 mg/dl (70-99); Lactic Acid 1.8 mmol/L (0.7-2.0); Potassium 5.3 mmol/L (3.5-5.1); Sodium 125 mmol/L (135-145); Total Bilirubin 0.9 mg/dl (0.2-1.3); Total Protein 5.7 g/dl (6.3-8.2); eGFR 48.55
[2024-08-14 17:18] LABS: Glucose 499 mg/dl (70-99)
--- NOTE | 2024-08-14 17:36 | ED.GENMED ---
History of Present Illness
General
Chief Complaint: Blood Sugar Problem
Source: patient
Exam Limitations: none
Time Seen by Provider: 08/14/24 17:21
History of Present Illness
History of Present Illness:
See MDM
Past History
Past History
ED Past Medical History: HTN and IDDM
ED Past Surgical History: Other (Vascular surgery)
Social History
Tobacco: Non-smoker
Alcohol: None
Phy Exam
Physical Exam
Physical Exam:
See MDM
Course
Orders/Labs/Results
Orders:
Orders
08/14/24 16:42
Electrocardiogram (*1) Urgent
Reason for Study: Other
Other Reason for Exam: Possible Sepsis
Cardiac Monitoring- Treatment ONCE
IV Insert/Care/Rem.- Treatment PRN
O2 Therapy [RESP] Urgent
Titrate/Wean O2 to maintain O2 sat greater than (%): 93
Special Instructions: TO MAINTAIN CONTINUOUS O2 SATS > OR = 93%
Pulse Ox/cont/shift [RESP] Urgent
Quantity: 1
Special Instructions: CONTINUOUS
08/14/24 16:43
EKG- Treatment ONCE
08/14/24 16:46
Complete Blood Count/With Diff Urgent
Comprehensive Metabolic Panel Urgent
Lactic Acid Q4H
Comment: ON ICE, CANCEL 2ND ORDER IF FIRST LACTIC ACID LEVEL <2
08/14/24 16:54
B-Hydroxybutyrate Urgent
Comment: ADD ON
Glucose Urgent
08/14/24 17:28
0.9% Sodium Chloride 1000 ml [Nss] 1,000 ml IV BOLUS
HYDROmorphone [Dilaudid] 1 mg IV NOW STA
Insulin Human Regular [Novolin R] 12 units IV NOW STA
08/14/24 17:54
Add On- LAB Urgent
Tests Added?: B-hydroxybuterate
08/14/24 18:02
Clindamycin 600 mg/50 ml [Cleocin] 600 mg in 50 ml IV NOW
08/14/24 18:24
Reg Insulin 100 Units/100 ml [Novolin R Insulin Infusion] 100 units in 100 ml IV NOW
08/14/24 18:25
Bedside Glucose- Treatment Q1H
IV Insert/Care/Rem.- Treatment PRN
08/14/24 18:30
Basic Metabolic Panel Q2H
08/14/24 20:30
Basic Metabolic Panel Q2H
08/14/24 20:45
Lactic Acid Q4H
Comment: ON ICE, CANCEL 2ND ORDER IF FIRST LACTIC ACID LEVEL <2
08/14/24 22:30
Basic Metabolic Panel Q2H
Abnormal Lab Results
08/14/24 08/14/24 08/14/24
16:41 16:46 16:54
WBC 12.1 H 10^3/uL
(4.8-10.8)
RBC 3.06 L 10^6/uL
(4.70-6.10)
Hgb 9.6 L g/dL
(13.0-18.0)
Hct 26.6 L %
(39.0-52.0)
MCH 31.4 H pg
(27.0-31.0)
Abs Immat Gran (auto) 0.2 H 10^3/uL
(0-0.05)
Absolute Neuts (auto) 10.5 H 10^3/uL
(1.4-6.5)
Absolute Lymphs (auto) 0.7 L 10^3/uL
(1.2-3.4)
Absolute Monos (auto) 0.7 H 10^3/uL
(0.1-0.6)
Immature Gran % 1.3 H %
(0-0.5)
Neutrophils % 86.8 H %
(42.2-75.2)
Lymphocytes % 6.0 L %
(20.5-51.1)
Sodium 125 L D mmol/L
(135-145)
Potassium 5.3 H mmol/L
(3.5-5.1)
Chloride 90 L mmol/L
(98-107)
Carbon Dioxide 19 L mmol/L
(22-30)
BUN 40 H mg/dl
(9-20)
Creatinine 1.5 H mg/dL
(0.7-1.3)
Glucose 505 H* mg/dl 499 H* mg/dl
(70-99) (70-99)
Calcium 8.1 L mg/dl
(8.4-10.2)
Total Protein 5.7 L g/dl
(6.3-8.2)
POC Glucose > 600 H* mg/dl
(70-99)
08/14/24 16:46
Vital Signs
Initial and Last Documented VS:
Initial Vital Signs
Pulse Resp
96 24
08/14/24 16:39 08/14/24 16:39
Last Documented Vital Signs
Temp Pulse Resp BP Pulse Ox
100.2 F 96 25 120/55 97
08/14/24 16:43 08/14/24 18:00 08/14/24 18:00 08/14/24 16:43 08/14/24 17:45
MDM/Problems Addressed
Differential Diagnosis Includes:
HPI and MDM Narrative:
74-year-old male presenting with uncontrolled blood sugars and fevers. Patient had left iliofemoral endarterectomy approximately 10 days ago by vascular surgery. Patient has noticed fevers overnight recently. He indicates increasing swelling and
redness at his surgical site in his left groin and worsening redness of his left leg.
On exam, patient does have erythema and bloody discharge at his surgical site. It is acutely tender. The distal leg is edematous and erythematous. The elevated blood sugar is likely related to his ongoing infection. There is no evidence of DKA.
Will start IV fluids and give IV bolus of insulin. Will start clindamycin to cover for MRSA. Due to his low creatinine, will avoid vancomycin.
Will ultimately admit for the uncontrolled blood sugar and the infection
Physical exam
General: Well appearing and non-toxic
HEENT: protecting airway. Dry mucous membranes
Neck: appears supple
CV: No evidence of cyanosis
Resp: No accessory muscle use
Abd: Non-distended
Extremities: No deformities
Neuro: alert
Psych: Normal affect
Skin: Left groin surgical incision with intact tanya. Bloody discharge noted. Surrounding erythema and tenderness noted. Distal left leg erythematous. Distal cap refill less than 2 seconds
Problems Addressed including Acute and Chronic Conditions affecting care:
1. Hyperglycemia
Acuity: acute
Prognosis: stable
Details: likely in the setting of infection. Patient states compliance with insulin. No evidence of DKA. Will give IV fluids and IV dose of insulin
2. Left leg cellulitis
Acuity: acute
Prognosis: stable
Details: Will start clindamycin for MRSA coverage and ultimately admit
Update:
6:30 PM Case discussed with admitting hospitalist after their evaluation. Given that he is already on high-dose insulin and uncontrolled, will start the DKA order set with insulin drip
Differential Diagnosis (but not limited to): Postsurgical infection, cellulitis, DVT, DKA
Testing considered: Left leg ultrasound
Drug therapy (if applicable): OTC meds, please see d/c instruction regarding Rx drugs
Amount and/or Complexity of Data Reviewed
Clinical info obtained from: Patient
External data reviewed: Recent admission where he underwent left iliofemoral endarterectomy
Labs I independently reviewed (but not limited to): Elevated blood sugar
Radiology: N/A
Pulse Ox: not hypoxic
EKG independently reviewed: Sinus rhythm, normal axis, no STEMI
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
Critical Care: The high probability of a clinically significant, sudden or life threatening deterioration of the endocrine system(s) required my full and direct attention, intervention and personal management. The aggregate critical care time was 33
minutes. This time is in addition to time spent performing reported procedures but includes the following:
[x] Data Review and interpretation
[x] Patient assessment and monitoring of vital signs
[x] Documentation
[x] Medication orders and management
Risk of Complication:
Social Determinants of health: Good social support
Discussed with other providers: Hospitalist
Escalation of Care includes Admit/Obs: Given the cellulitis and uncontrolled blood sugars, will start IV antibiotics and insulin and admit
Occasional wrong word or 'sound a like' substitutions may have occurred due to the inherent limitations of voice recognition software. Read the chart carefully and recognize, using context, where substitutions have occurred.
*Critical Care Note
Total Time (30-74mins, 75-104mins- exclusive of procedures): 33 min
ED Attending Note
-
Portions of this chart may have been created with voice recognition software.� Occasional wrong word or��sound alike� substitutions may have occurred due to the inherent limitations of voice recognition software.
Discharge Plan
Departure
Patient Disposition: Admit
Date of Disposition: 08/14/24
Time of Disposition: 17:36
Admit to: Med/Surg
Presentation/result/management discussed w/ accepting MD/DO: Hospitalist
Discharge Problem:
Acute hyperglycemia, Cellulitis
Prescriptions:
No Action
phenytoin sodium extended 100 MG capsule
200 mg PO BID
fluticasone propionate 1 SPRAY spray,suspension
2 spray intranasal DAILY
atorvastatin 40 MG tablet
40 mg PO DAILY
pantoprazole 40 MG tablet,delayed release (DR/EC)
40 mg PO DAILY
metformin 1,000 mg Tablet
1,000 mg PO BID
magnesium 200 mg Tablet
400 mg PO BID
lisinopril-hydrochlorothiazide 20-12.5 mg Tablet
2 tab PO DAILY Qty: 1 0RF
Rx Instructions:
Hold if systolic blood pressure <130 while on Oxycodone.
amlodipine 5 MG tablet
5 mg PO DAILY Qty: 1 0RF
Rx Instructions:
Hold if systolic blood pressure <130 while on Oxycodone.
aspirin 81 mg Tablet,Delayed Release (Dr/Ec)
81 mg PO DAILY
Ozempic 0.25 mg or 0.5 mg(2 mg/1.5 mL) Pen Injector
0.5 mg SC QWEEK
amoxicillin 500 mg Capsule
500 mg PO Q8H 7 Days Qty: 21 0RF
docusate sodium 100 mg Capsule
100 mg PO BID Qty: 20 0RF
doxycycline hyclate 100 mg Capsule
100 mg PO Q12 7 Days Qty: 14 0RF
Humulin R U-500 (Conc) Kwikpen 500 unit/mL (3 mL) insulin pen
30 unit SC NOON
Humulin R U-500 (Conc) Kwikpen 500 unit/mL (3 mL) insulin pen
20 unit SC HS
oxycodone 5 mg tablet
5 mg PO Q4HPRN PRN (Reason: severe pain)
Humulin R U-500 (Conc) Kwikpen 500 unit/mL (3 mL) insulin pen
75 unit SC DAILY
Rx Instructions:
75 units in AM
30 units at NOON
20 units at HS
Referrals:
Teodoro Barnard DO [Family Provider] -
Interventions
Interventions:
*Risk Screen - Suicide Last Done: 08/14/24 16:56
*General Assessment Last Done: 08/14/24 16:55
*Neglect/Abuse Screening Last Done: 08/14/24 16:56
ED- Fall Risk Assessment Last Done: 08/14/24 16:58
*ED COVID-19 Vaccine History Last Done: 08/14/24 16:55
ED- Neurological Assessment Last Done: 08/14/24 16:58
Discharge Date and Time
Print Language: SLOVAK
[2024-08-14] MEDS: DILAUDID 1 MG IV (17:46)
[2024-08-14] MEDS: NOVOLIN R 12 UNITS IV (17:47)
[2024-08-14] MEDS: NSS 1000 IV (17:53)
[2024-08-14 18:32] LABS: B-Hydroxybutyrate 3.12 mmol/L (0.02-0.27)
--- NOTE | 2024-08-14 18:37 | HPS.HSE ---
Family Physician
-
Family Physician: Teodoro Barnard
Chief Complaint
-
fever, hyperglycemia
History of Present Illness
74-year-old male past medical history of PAD status post left iliofemoral endarterectomy 10 days ago, CAD, hypertension, diabetes, Crohn's disease, hypercholesteremia, pancreatitis, obstructive sleep apnea, GERD, BPH, glaucoma, former smoker,
seizure disorder, presenting for elevated blood sugar. He has been compliant with his insulin.
Patient underwent extensive left iliofemoral endarterectomy on 08/04. He has been on prophylactic antibiotics since that time.
He states that yesterday he noticed some discomfort in his left groin area at the site of the surgical site. He noticed some serosanguineous discharge from the area. He also has increased swelling of his left calf.
He complains of increased urination and thirst.
Medical History
Past Medical History
Past Medical History: Reports Other ( PAD status post left iliofemoral endarterectomy 10 days ago, CAD, hypertension, diabetes, Crohn's disease, hypercholesteremia, pancreatitis, obstructive sleep apnea, GERD, BPH, glaucoma, former smoker, seizure
disorder,)
Past Surgical History: Reports None
Social History
Tobacco: Non-smoker
Alcohol: None
Drug: None
Family History
Family History: Not pertinent
Allergies / Home Medications
Allergies reflects when Allergies were last updated in [facility].
Home Medications with original date entered in [employer]
Allergy/Medication List:
Allergies
Allergy/AdvReac Type Severity Reaction Status Date / Time
Sulfa (Sulfonamide Allergy Itching Verified 08/04/24 09:49
Antibiotics)
[Sulfa (Sulfonamides)]
Home Medications
atorvastatin 40 mg tablet 40 mg PO DAILY High cholesterol 07/19/21
fluticasone propionate 50 mcg/actuation nasal spray,suspension 2 spray intranasal DAILY Allergies 07/19/21
phenytoin sodium extended 100 mg capsule 200 mg PO BID Seizures 07/19/21
pantoprazole 40 mg tablet,delayed release 40 mg PO DAILY Gastrointestinal issue 07/27/21
magnesium 200 mg tablet 400 mg PO BID Electrolyte Repletion 07/10/22
metformin 1,000 mg tablet 1,000 mg PO BID Diabetes 07/10/22
amlodipine 5 mg tablet 5 mg PO DAILY Blood pressure #1 tab 08/02/22
lisinopril 20 mg-hydrochlorothiazide 12.5 mg tablet 2 tab PO DAILY Blood pressure #1 tab 08/02/22
aspirin 81 mg tablet,delayed release 81 mg PO DAILY Blood Clot Prevention/Tx 07/28/24
semaglutide 0.25 mg or 0.5 mg (2 mg/1.5 mL) subcutaneous pen injector (Ozempic) 0.5 mg SC QWEEK Diabetes 08/04/24
amoxicillin 500 mg capsule 500 mg PO Q8H 7 days #21 caps 08/12/24
docusate sodium 100 mg capsule 100 mg PO BID #20 caps 08/12/24
doxycycline hyclate 100 mg capsule 100 mg PO Q12 7 days #14 caps 08/12/24
insulin regular hum U-500 conc 500 unit/mL(3 mL) subcut pen (Humulin R U-500 (Conc) Insulin Kwikpen) 20 unit SC HS 08/14/24
insulin regular hum U-500 conc 500 unit/mL(3 mL) subcut pen (Humulin R U-500 (Conc) Insulin Kwikpen) 30 unit SC NOON 08/14/24
insulin regular hum U-500 conc 500 unit/mL(3 mL) subcut pen (Humulin R U-500 (Conc) Insulin Kwikpen) 75 unit SC DAILY Diabetes 08/14/24
oxycodone 5 mg tablet 5 mg PO Q4HPRN PRN severe pain 08/14/24
Review of Systems
-
History Source: Patient
A 12 point ROS was completed and negative except as noted: Yes
Constitutional: Reports No Symptoms
EENT: Reports No Symptoms
Respiratory: Reports No Symptoms
Cardiac: Reports No Symptoms
Abdomen/GI: Reports No Symptoms
: Reports No Symptoms
Musculoskeletal: Reports No Symptoms
Skin: Reports See HPI
Neurological: Reports No Symptoms
Endocrine: Reports No Symptoms
Hematologic/Lymphatic: Reports No Symptoms
Psych: Reports No Symptoms
Physical Exam
Vital Signs
Vital Signs
Temp Pulse Resp BP Pulse Ox
100.2 F 96 25 120/55 97
08/14/24 16:43 08/14/24 18:00 08/14/24 18:00 08/14/24 16:43 08/14/24 17:45
Physical Exam
General: Well Developed, Well Nourished and No Apparent Distress
HEENT: NormoCephalic, Moist mucous membranes and Atraumatic
Respiratory: Clear
Cardiac: S1/S2 and Regular Rhythm; No Murmur or Rub
GI: Soft, Non Tender, Non Distended and Normal Bowel Sounds; No Organomegaly
Rectal: Deferred by Provider
Musculoskeletal: No Clubbing, No Cyanosis and No Edema
Skin: No Rash
Neuro: Nonfocal/grossly intact
Laboratory Results
-
08/14/24 16:46
Laboratory Results
Lactic Acid 1.8 mmol/L (0.7-2.0) 08/14/24 16:46
Total Bilirubin 0.9 mg/dl (0.2-1.3) 08/14/24 16:46
AST 38 U/L (17-59) 08/14/24 16:46
ALT 32 U/L (0-50) 08/14/24 16:46
Alkaline Phosphatase 101 U/L (38-126) 08/14/24 16:46
Data Reviewed
-
Lab Data: Labs Reviewed by me
Old Records: Reviewed
Impression/Plan
-
IMPRESSION:
PLAN:
# Sepsis (tachycardia, leukocytosis) secondary to surgical site infection
# PAD status post left iliofemoral endarterectomy 10 days ago
-Check blood cultures
-IV fluids
-Vancomycin/Zosyn
-Check CTA aorta with runoff to rule out deep infection
-Vascular surgery consulted
# Peripheral arterial disease status post left iliofemoral endarterectomy 10 days ago
-Continue aspirin, statin
# Hyperglycemia secondary to infection
# Type 2 diabetes
# Pseudohyponatremia
-Blood sugar 500
-Beta hydroxybutyrate pending
-Does not appear to be in DKA but will start insulin drip as anticipate blood sugars will be difficult to manage
-Consult diabetes nurse educator
# Acute kidney injury
# Hyperkalemia
-IV fluids
-Hold lisinopril, hydrochlorothiazide
-Hold metformin
CAD
Essential hypertension
-Hold amlodipine
Crohn's disease
Hypercholesterolemia
History of pancreatitis
Obstructive sleep apnea
GERD
-Continue Protonix
BPH
Glaucoma
Former smoker
Seizure disorder
-Continue phenytoin
DNR/DNI
DVT prophylaxis�heparin
Diabetic diet
[2024-08-14] MEDS: CLEOCIN 50 IV (18:43)
[2024-08-14 19:20] LABS: Blood Urea Nitrogen 39 mg/dl (9-20); Blood Urea Nitrogen 40 mg/dl (9-20); Calcium 8.1 mg/dl (8.4-10.2); Carbon Dioxide 19 mmol/L (22-30); Carbon Dioxide 20 mmol/L (22-30); Chloride 94 mmol/L (98-107); Estimated Creatinine Clearance 52 ml/min; Estimated Creatinine Clearance 55 ml/min; Glucose 382 mg/dl (70-99); Potassium 4.6 mmol/L (3.5-5.1); Potassium 4.7 mmol/L (3.5-5.1); Sodium 127 mmol/L (135-145); Sodium 128 mmol/L (135-145); eGFR 44.93; eGFR 48.55
[2024-08-14 19:26] LABS: Glucose - Point of Care 416 mg/dl (70-99)
[2024-08-14 19:26] LABS: Chloride 94 mmol/L (98-107)
[2024-08-14] MEDS: NOVOLIN R INSULIN INFUSION 100 IV (19:56)
[2024-08-14 20:12] LABS: Glucose 379 mg/dl (70-99)
[2024-08-14 20:47] LABS: Glucose - Point of Care 412 mg/dl (70-99)
--- NOTE | 2024-08-14 21:18 | W.PN.UPDATE ---
Update Note
Progress Note Update
Patient presented to ER with drainage from left groin post operatively
CTA demonstrates pseudoaneurysm of femoral artery with infection
Discussed with patient plan for operating room - excise infected artery and obturator bypass
explained risk including and limb loss
he understands severity of situation.
plan for OR tonight
Antbx
type and cross ordered
[2024-08-14 21:22] LABS: Glucose 383 mg/dl (70-99)
[2024-08-14 23:35] LABS: B.E. - POC -4.1 mmol/L; Glucose - POC 333 mg/dl (70-99); HCO3 - POC 20 mmol/L (21-29); Hematocrit - POC 24 % PCV (42-52); Hemodilution- POC No; Hemoglobin Calculated - POC 8.1; Ionized Calcium - POC 1.06 mmol/L (1.12-1.27); Lactate - POC 0.33 mmol/L (0.36-0.75); O2 Saturation %Calculated-POC 99.9 % (92-96); PCO2 - POC 34 mmHg (35-45); PO2 - POC 349 mmHg (80-100); Potassium - POC 4.3 mmol/L (3.6-5.0); Sodium - POC 127 mmol/L (135-145); pH - POC 7.39 (7.35-7.45)
[2024-08-15] VITALS (8 sets, daily range): BP systolic 72–128; BP diastolic 44–102; BMI 40.1
[2024-08-15 00:39] LABS: B.E. - POC -4.5 mmol/L; Glucose - POC 285 mg/dl (70-99); HCO3 - POC 21 mmol/L (21-29); Hematocrit - POC 28 % PCV (42-52); Hemodilution- POC No; Hemoglobin Calculated - POC 9.4; Ionized Calcium - POC 1.19 mmol/L (1.12-1.27); Lactate - POC 0.46 mmol/L (0.36-0.75); O2 Saturation %Calculated-POC 99.9 % (92-96); PCO2 - POC 36 mmHg (35-45); PO2 - POC 356 mmHg (80-100); Potassium - POC 4.4 mmol/L (3.6-5.0); Sodium - POC 129 mmol/L (135-145); pH - POC 7.36 (7.35-7.45)
[2024-08-15 01:26] LABS: ACT-LR - POC 197 Seconds (116-155)
--- NOTE | 2024-08-15 01:50 | W.IMMPOSTOP ---
Surgical Immed Post Op Note
-
Primary Surgeon: Cristi Melton (co-surgeons)
Assisting Surgeon:None
Pre-op Diagnosis: Infected left femoral artery ruptured pseudoaneurysm (s/p left femoral endarterectomy/bovine pericardial patch angioplasty)
Post-op Diagnosis: same
Procedure Performed: 1) Left external iliac artery to above knee popliteal artery obturator bypass with 8mm ringed Propaten graft, 2) Wide debridement left groin with excision infected pseudoaneurysm and bovine pericardial patch (excision of
entirety of patch), with pulse lavage irrigation
Anesthesia Type: General
Specimen / Cultures: deep tissue swab left groin and infected hematoma
Estimated Blood Loss: 600cc
Complications: none
Operative Findings: obturator bypass performed first in clean planes. excellent doppler signal and pulsation in popliteal artery distal to anastomosis (and dopplerable DP/PT signals in foot upon completion); despite distal SFA disease/plaque,
good retrograde flow through SFA into groin (ligated in groin). Good retrograde flow in profunda - given limited options and infectious concerns, profunda therefore not revascularized.
[2024-08-15] MEDS: SUBLIMAZE 100 MCG IV ×2 (02:30→02:40)
[2024-08-15 02:50] LABS: Glucose - Point of Care 265 mg/dl (70-99)
[2024-08-15] MEDS: SUBLIMAZE 100 IV (02:54)
[2024-08-15] MEDS: DIPRIVAN 100 IV (03:01)
[2024-08-15] MEDS: ATIVAN 1 MG IV (03:05)
[2024-08-15 03:19] LABS: Glucose - Point of Care 318 mg/dl (70-99)
[2024-08-15] MEDS: NSS 1000 IV ×3 (03:20→20:07)
[2024-08-15] MEDS: PRECEDEX 100 IV (04:18)
[2024-08-15] MEDS: ZOSYN 50 IV ×3 (04:35→17:37)
[2024-08-15] MEDS: HEPARIN 5000 UNITS SC ×3 (04:38→20:26)
[2024-08-15 04:42] LABS: Glucose - Point of Care 242 mg/dl (70-99)
[2024-08-15] MEDS: SUBLIMAZE 50 MCG IV (04:43)
[2024-08-15] MEDS: DILANTIN PO ×2 (04:47→07:42)
[2024-08-15] MEDS: COLACE PO ×2 (04:47→07:42)
[2024-08-15] MEDS: NOVOLIN R INSULIN INFUSION 100 IV ×2 (05:03→17:36)
[2024-08-15 05:37] LABS: Glucose - Point of Care 209 mg/dl (70-99)
--- NOTE | 2024-08-15 05:37 | W.PN.SEPSIS ---
Sepsis
Vital Signs
Temp Pulse Resp BP Pulse Ox
99.2 F 100 27 120/55 100
08/15/24 03:37 08/14/24 21:30 08/14/24 21:30 08/14/24 16:43 08/15/24 02:46
Physical Exam
Physical Exam:
A focused exam was performed after fluid resuscitation.
Capillary Refill
Bilateral Upper Extremity:
Suze Time: Less than 3 sec
Bilateral Lower Extremity:
Suze Time: Less than 3 sec
Pulse Evaluation
Bilateral Radial:
Pulse Evaluation: Present
Bilateral Dorsalis Pedis:
Pulse Evaluation: Palpable with Doppler
[2024-08-15 05:46] LABS: INR 1.34; PT 16.4 Sec (11.4-14.6)
[2024-08-15 05:47] LABS: APTT 31.6 Sec (23.4-35.0)
[2024-08-15 06:05] LABS: Triglycerides 259 mg/dl (10-149)
[2024-08-15 06:13] LABS: ALT (SGPT) 24 U/L (0-50); AST (SGOT) 41 U/L (17-59); Albumin 2.5 g/dl (3.5-5.0); Alkaline Phosphatase 67 U/L (38-126); Blood Urea Nitrogen 38 mg/dl (9-20); Calcium 7.9 mg/dl (8.4-10.2); Carbon Dioxide 20 mmol/L (22-30); Chloride 100 mmol/L (98-107); Estimated Creatinine Clearance 63 ml/min; Glucose 189 mg/dl (70-99); Magnesium 2.4 mg/dl (1.6-2.3); Phosphorus 3.4 mg/dl (2.5-4.5); Potassium 4.3 mmol/L (3.5-5.1); Sodium 129 mmol/L (135-145); Total Bilirubin 2.8 mg/dl (0.2-1.3); Total Protein 4.6 g/dl (6.3-8.2); eGFR 57.65
[2024-08-15] MEDS: LEVOPHED 250 IV (06:18)
[2024-08-15 06:39] LABS: Glucose - Point of Care 205 mg/dl (70-99)
[2024-08-15 06:44] LABS: % Basophils 0.4 % (0-2); % Eosinophils 0.1 % (0-6); % Immature Granulocytes 1.4 % (0-0.5); % Lymphocytes 4.8 % (20.5-51.1); % Monocytes 6.1 % (1.7-9.3); % Neutrophils 87.2 % (42.2-75.2); Absolute Basophils 0.1 10^3/uL (0-0.2); Absolute Immature Granulocytes 0.2 10^3/uL (0-0.05); Absolute Lymphocytes 0.8 10^3/uL (1.2-3.4); Absolute Neutrophils 14.7 10^3/uL (1.4-6.5); Hemoglobin 10.7 g/dL (13.0-18.0); Mean Corp Hgb Conc. 36.9 g/dL (33.0-37.0); Mean Corpuscular Hgb 31.3 pg (27.0-31.0); Mean Corpuscular Volume 84.8 fL (80.0-94.0); Mean Platelet Volume 8.6 fL (7.4-10.4); Nucleated Red Blood Cells % 0 % (-); Platelet Count 246 10^3/uL (130-400); Red Blood Cell Count 3.42 10^6/uL (4.70-6.10); White Blood Cell Count 16.8 10^3/uL (4.8-10.8)
--- NOTE | 2024-08-15 07:18 | PTCARENOTE ---
[id number]: Received patient from OR team in room 3365 at 0220. Patient received on mechanical ventilation. Bedside handoff completed. The patient has a left femoral groin wound vac and a left lower lateral abdominal Aquacel dressing. Doppler pulses
present to LLE. Foot is cool to the touch. One unit of Prbc from the OR is transfusing. Pt's on insulin gtt at 12 units. The patient's BP is 217/83s. CORRECTIONAL SUPPLY SUPERVISOR remained at the bedside. Deneen Chaney CRNP at the bedside. Fentanyl 100 mcg bolus
ordered. The patient's BP remained in the 200s. PT is awake and restless. Another fentanyl 100 mcg bolus administered without improvement. Fentanyl drip ordered. Propofol initiated as the patient was restless and attempting to remove ETT.
Restraints placed. Pharmacy paged of order verification..
[id number]:Patient's BP 79/33 (52) and declining. BLIND HOOKER remains at the bedside. Levophed ordered. Patient is awake and following commands. Sinus rhythm on the monitor. SpO2 at 100% on vent. Levophed ordered and initiated. Titration per protocol.
0400: Pt's BP 136/61 (85). Plan to place Levophed on hold per BLIND HOOKER. 0430: Pt's SBP in the 70s. Restarted Levophed. The patient's BP wax and weans. Propofol discontinued and Precedex initiated. PRN fentanyl administered for restlessness at the patient
continued fighting the vent. Reorientation provided. The patient nods understanding and to yes and no questions. Follows commands. Patient cleansed and pads changed. Labs drawn and sent. See flowsheet for full documentation.
[2024-08-15 07:38] LABS: Glucose - Point of Care 193 mg/dl (70-99)
[2024-08-15] MEDS: ASPIR LOW (ENTERIC COATED) PO (07:42)
[2024-08-15] MEDS: PROTONIX PO (07:42)
[2024-08-15] MEDS: LIPITOR PO (07:42)
--- NOTE | 2024-08-15 07:45 | PTCARENOTE ---
Received pt @ change of shift intubated/sedated w b/l soft limb wrist restraints/4 rails- see flow sheet. Pt. drowsy, opens eyes spontaneously; follow commands/nods head approp. PERRLA, 3mm/brisk. GIMENEZ, gen weakness. SB/SR w BBB on monitor.
Afebrile. SpO2 100% on ventilator settings AC15/500/.50/+5. Scant amt of thick/clear secretions overnight. Auscultated coarse breath sounds anteriorly. +BS, abd round/obese; NPO. Thermistor sim in place draining nasima urine. L lower abd and L
thigh incisional dressings c/d/i. L groin wound vac dressing c/d/i; maintained on -125mmHg w small amt of sang output. LLE neurovascular checks maintained per protocol- see flow sheet. Fent/precedex/levo/insulin gtts infusing- see flow sheet. NSS
infusing @ 125mL/hr- see DEC. Pt. informed on plan of care; nods head in understanding. Safe environment maintained.
--- NOTE | 2024-08-15 07:46 | CON.INTV ---
Consultation
Consultation Request
Date/Time Consultation Requested: 08/15/2024-7:30 AM
Date/Time Consultation Performed: 08/15/2024-7:30 AM
Requesting Provider: Hospitalist
Performing Provider: Dr. Corbett
Reason for Consultation: Critical care management
Medical History
-
Chief Complaint: Infected left femoral artery ruptured pseudoaneurysm
History of Present Illness:
74-year-old male with a history of hypertension, diabetes, Crohn's, hyperlipidemia, pancreatitis, LEONEL, GERD, BPH, former smoker as well as seizure disorder with PAD status post iliofemoral endarterectomy 10 days prior to admission and admitted with
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 Patient is on a ventilator and review of systems was unobtainable. Operative records were reviewed. Patient is not on
any pressors at this time.
Past Medical History
Past Medical History: None (Hypertension. Hyperlipidemia. Diabetes. CAD. Crohn's. Pancreatitis. LEONEL. GERD. BPH. Glaucoma. Former smoker. Obesity. Seizure disorder. PAD-left iliofemoral endarterectomy 07/2024..)
Social History
Tobacco: Non-smoker
Alcohol: None
Drug: None
Living: With Family
Occupational Exposures: No known asbestos exposure
Environmental Exposures: No known tuberculosis exposure
Family History
Family History: Reviewed & Not Pertinent
Allergies / Home Medications
Allergies
Allergy/AdvReac Type Severity Reaction Status Date / Time
Sulfa (Sulfonamide Allergy Itching Verified 08/04/24 09:49
Antibiotics)
[Sulfa (Sulfonamides)]
Home Medications
�Medication �Instructions �Recorded �Confirmed �Last Taken �Type
atorvastatin 40 mg tablet 40 mg PO DAILY High cholesterol 07/19/21 08/14/24 08/03/24 08:30 History
fluticasone propionate 50 2 spray intranasal DAILY Allergies 07/19/21 08/14/24 08/03/24 08:30 History
mcg/actuation nasal
spray,suspension
phenytoin sodium extended 100 mg 200 mg PO BID Seizures 07/19/21 08/14/24 08/03/24 18:00 History
capsule
pantoprazole 40 mg tablet,delayed 40 mg PO DAILY Gastrointestinal 07/27/21 08/14/24 08/03/24 08:30 History
release issue
magnesium 200 mg tablet 400 mg PO BID Electrolyte Repletion 07/10/22 08/14/24 08/03/24 18:00 History
metformin 1,000 mg tablet 1,000 mg PO BID Diabetes 07/10/22 08/14/24 08/03/24 18:00 History
amlodipine 5 mg tablet 5 mg PO DAILY Blood pressure #1 tab 08/02/22 08/14/24 08/03/24 08:30 Rx
lisinopril 20 2 tab PO DAILY Blood pressure #1 08/02/22 08/14/24 08/03/24 08:30 Rx
mg-hydrochlorothiazide 12.5 mg tab
tablet
aspirin 81 mg tablet,delayed 81 mg PO DAILY Blood Clot 07/28/24 08/14/24 08/03/24 08:30 History
release Prevention/Tx
semaglutide 0.25 mg or 0.5 mg (2 0.5 mg SC QWEEK Diabetes 08/04/24 08/14/24 07/19/24 08:00 History
mg/1.5 mL) subcutaneous pen
injector (Ozempic)
amoxicillin 500 mg capsule 500 mg PO Q8H 7 days #21 caps 08/12/24 08/14/24 Unknown Rx
docusate sodium 100 mg capsule 100 mg PO BID #20 caps 08/12/24 08/14/24 Unknown Rx
doxycycline hyclate 100 mg capsule 100 mg PO Q12 7 days #14 caps 08/12/24 08/14/24 Unknown Rx
insulin regular hum U-500 conc 500 20 unit SC HS 08/14/24 08/14/24 Unknown History
unit/mL(3 mL) subcut pen (Humulin
R U-500 (Conc) Insulin Kwikpen)
insulin regular hum U-500 conc 500 30 unit SC NOON 08/14/24 08/14/24 Unknown History
unit/mL(3 mL) subcut pen (Humulin
R U-500 (Conc) Insulin Kwikpen)
insulin regular hum U-500 conc 500 75 unit SC DAILY Diabetes 08/14/24 08/14/24 Unknown History
unit/mL(3 mL) subcut pen (Humulin
R U-500 (Conc) Insulin Kwikpen)
oxycodone 5 mg tablet 5 mg PO Q4HPRN PRN severe pain 08/14/24 08/14/24 Unknown History
Review of Systems
-
Unable to Obtain full review of systems at this time due to: Other (Per HPI)
Vitals / Labs / Diagnostic Testing
Vital Signs
Temp Pulse Resp BP Pulse Ox
98.7 F 57 17 121/61 100
08/15/24 07:00 08/15/24 07:15 08/15/24 07:15 08/15/24 06:17 08/15/24 07:35
Lab Data
08/15/24 05:27
08/15/24 05:27
Laboratory Results
08/15/24
05:27
PT 16.4 H
INR 1.34
APTT 31.6
Diagnostic Testing:
Physical Exam
-
Exam:
Well-nourished and well-developed in no apparent distress
HEENT-atraumatic, normocephalic, oral tracheal intubation
Neck-supple, no JVD, no bruit
Heart-regular rate and rhythm-no murmurs, rubs or gallops
Chest-clear to auscultation, no wheezes, crackles
Abdomen-soft, nontender, nondistended, no hepatosplenomegaly
Extremities-no cyanosis, clubbing, edema and good peripheral pulses
Integument-intact, no rashes, lesions or ecchymosis
Neurologically sedate, moving extremities, nonfocal
Assessment
-
74-year-old male with a history of hypertension, diabetes, Crohn's, hyperlipidemia, pancreatitis, LEONEL, GERD, BPH, former smoker as well as seizure disorder with PAD status post iliofemoral endarterectomy 10 days prior to admission and admitted with
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
Sepsis-tachycardia and leukocytosis
PAD status post left iliofemoral endarterectomy 10 days prior to admission with subsequent infection/rupture
s/p left external iliac artery to above-knee popliteal artery obturator bypass, white debridement left groin, excision infected pseudoaneurysm and bovine pericardial patch with pulse lavage irrigation-Dr. Colin 08/15/2024
Leukocytosis
Anemia
Hyponatremia
Hyperglycemia
Hypoalbuminemia
Conditions present prior to admission:
Hypertension.
Hyperlipidemia.
Diabetes.
CAD.
Crohn's.
Pancreatitis.
LEONEL.
GERD.
BPH.
Glaucoma.
Former smoker.
Obesity.
Seizure disorder.
PAD-left iliofemoral endarterectomy 07/2024..
Plan
Admit patient to medical intensive care unit for persistent hypotension despite fluid resuscitation requiring pressors
Ventilator settings reviewed-airway pressures reviewed
Arterial blood gases reviewed
Attempt spontaneous breathing trial
Attempt to extubate 08/15/2024
VAP prevention protocols
Nebulizers if needed-currently not bronchospastic
Wean Precedex off
Obtain cultures including intraoperatively
Empiric antibiotics-vancomycin and Zosyn initiated
Infectious disease consultation pending
Monitor leukocytosis
Fluid resuscitation with 30 mL/kg crystalloid-preferably lactated ringer-(less SUZANNE) with subsequent boluses as needed
Monitor lactate
Follow CVP if possible
Attempt noninvasive bedside tissue perfusion evaluation to see if fluid bolus responsive
Measure pulse pressure and stroke volume variation if patient on ventilator, passively breathing without arrhythmia and with temporary large tidal volume ventilation and if > 13% then likely fluid bolus responsive
If patient active then consider measuring bedside leg lift for 3 minutes and if cardiac output increases or if there is a rise of 2-4 on end-tidal CO2 then fluid bolus
If bedside ultrasound available then measure IVC diameter variation to evaluate for fluid bolus responsiveness
Begin pressors as needed for MAP goal of 65-Norepinephrine first, then Vasopressin and consider Angiotensin II if continues to be hypotensive
Consider methylene blue if available-specific inhibitor of induced nitric oxide synthase iNOS and its downstream enzyme soluble guanylate cyclase-noninferiority study shown to reduce time to vasopressor discontinuation, decreased ICU length of stay,
hospital stay but no change in mortality-published Critical Care 01/06/2023
Vascular surgery following-correspondence reviewed
Operative records reviewed
Follow hemoglobin
Transfuse if needed-received significant transfusions intraoperatively after ruptured
Monitor blood sugar
Insulin supplementation as needed
DVT prophylaxis-on heparin subcu
Early nutrition if possible
Early mobilization/bedside range of motion
Details about his obstructive sleep apnea unknown-patient on the ventilator as well as his former smoking history-May benefit from outpatient pulmonary/sleep disorders follow-up
Critical care statement: A total of 55 minutes of critical care time was provided for this patient today. This includes management of unstable vital signs, evaluation of the patient at bedside, reviewing the patient's pertinent medical records
including radiographs, microbiology, laboratory evaluations, and discussion with primary team, consultants, pharmacy, nutrition, physical therapy, case management, charge nurse, critical care nursing, and respiratory therapy.
Diagnostic data:
Chest x-ray 07/30/2024-NAD
Chest x-ray 08/15/2024-endotracheal tube in good position, mildly decreased bilateral lung volumes, subsegmental atelectasis
CT abdomen 08/14/24-4 x 6 cm pseudoaneurysm, gas containing soft tissue collection anterior to the pseudoaneurysm fatty infiltration of the liver
Data Reviewed
-
EKG: Report reviewed by me
Radiology: Report reviewed by me
CT Scan: Report reviewed by me
Medical Tests (Nuc Med, Echo etc): Report reviewed by me
Labs: Labs reviewed by me
Old Records: Reviewed
Critical Care Time (in minutes): 55
--- NOTE | 2024-08-15 08:46 | PTCARENOTE ---
Fent gtt off @ 0750 for SAT/SBT. Pt. remains calm; nods head/follows commands approp. CPAP wean 02/28/.40 initiated @ 0800 by RT. Pt. tolerating vent wean thus far. Safe environment maintained.
[2024-08-15 08:47] LABS: Glucose - Point of Care 200 mg/dl (70-99)
[2024-08-15 09:09] LABS: B.E. -1.9 mmol/L; HCO3 22.1 mmol/L (21-28); PCO2 34 mmHg (35-48); PO2 170 mmHg (83-108); pH 7.42 (7.35-7.45)
[2024-08-15 09:13] LABS: O2 Therapy 40 CPAP vent wean
--- NOTE | 2024-08-15 09:27 | W.PN.HOSP.TC ---
Today's Communication/Plan
-
ID evaluation
Monitor blood culture report
Monitor intraoperative culture report
Continue antibiotics
Vent weaning per transportation dispatcher
Insulin drip management per transportation dispatcher
Assessment / Plan
Assessment / Plan
CT A/P
1.). There is new 4 x 4 by 6 cm pseudoaneurysm with internal vascular flow at the left common femoral artery associated with compression of the pokagon common femoral and proximal superficial femoral arteries with less than 50% luminal narrowing.
2). Anterior to the pseudoaneurysm there is a gas containing soft tissue collection measuring approximately 3.5 x 3.5 x 10 cm with overlying surgical clips. This collection has increased in size when compared with the 08/10/2024 examination
suggesting that this may be infected collection rather than related to recent surgical intervention
3). Extensive partially calcific atherosclerotic changes as detailed above.
4). 5 cm umbilical hernia which contains a loop of bowel without associated obstruction or strangulation.
5). Diffuse fatty infiltration of the liver
Previous visit
Vasc OR note from 08/04
1. Extensive left ilio-femoral endarterectomy (very distal left external iliac artery, common femoral artery, proximal superficial femoral artery, origin of profunda femoris) with long bovine pericardial patch angioplasty.
2. Aortogram/pelvic angiogram and right lower extremity arteriogram with selective catheterization of right superficial femoral artery via puncture of left common femoral artery patch.

1. Septic shock
Infected left iliofemoral endarterectomy site
Femoral artery pseudoaneurysm
H/o of PAD
-Patient underwent left iliofemoral endarterectomy as mentioned above on 08/04
-Patient presented with new drainage from surgical site and uncontrolled blood glucose
-CT abdomen pelvis showing pseudoaneurysm left common femoral artery with surrounding fluid collection suggestive of infected hematoma/abscess
-Blood culture collected in ER
-Patient started on empiric vancomycin and Zosyn
-Vascular surgery has been consulted and patient was taken to the OR in the morning today with patient underwent left external iliac artery to above-knee popliteal artery bypass with propatent graft. Wide debridement of infected pseudoaneurysm and
bovine pericardial patch was done with deep tissue cultured intraoperatively.
-Left groin TONY drain in place, monitor output
-Currently patient on small dose of vasopressor postoperatively with combination of need of sedative medication/sepsis
-ID consulted for further help with antibiotic management
2. Ventilatory dependent respiratory failure
-Chest x-ray did not show any overt pulmonary edema/pneumonia
-Currently intubated likely for airway protection, vent weaning per transportation dispatcher
3. Type 2 diabetes mellitus
Hyperglycemia secondary to sepsis
-Maintain on insulin drip for glucose management
-Diabetes CHEMICAL WORKER consultation for help
4. Acute kidney injury
Hyperkalemia
-Renal dysfunction likely from sepsis/hypotension related
-Improving on blood work today
-Indwelling Perez catheter in place and to be removed for postop management protocol
-Continue holding lisinopril/hydrochlorothiazide
-Patient got CTA with creatinine of 1.5 at admission, monitor for new developing RAFFI.
-Hyperkalemia resolved, continue monitoring
CAD
Essential hypertension
Crohn's disease
Hypercholesterolemia
History of pancreatitis
Obstructive sleep apnea
GERD
BPH
Glaucoma
Former smoker
Seizure disorder -Continue phenytoin
DNR/DNI
DVT prophylaxis�heparin
Total critical care time 40 mins . Total critical care time documented does not include time spent on separately billed procedures or the services of residents, students, nurses or physician assistants. I personally saw and examined the patient. I
have reviewed all diagnostic interpretations and treatment plans as written. I was present for the quigley portions of any procedures performed and the inclusive time noted in any critical care statement. Critical care time includes patient management
by me, time spent at the patients bedside, time to review lab and imaging results, discussing patient care, documentation in the medical record, and time spent with the family or caregiver.
Anticipated Discharge: > 48 hours
Subjective/Interval History
-
Date of Service: August 15, 2024
Patient intubated on Levophed at 2mcg/min
On fentanyl drip for pain control
Waking up on verbal cue
Left groin TONY drain in place
Perez catheter in place
Afebrile overnight
Objective Data
-
Labs:
Laboratory Results
08/14/24 08/15/24 08/15/24
22:30 05:27 09:01
WBC 16.8 H
Hgb 10.7 L
Hct 29.0 L
Plt Count 246 D
PT 16.4 H
INR 1.34
APTT 31.6
HCO3 22.1
Sodium Cancelled 129 L
Potassium Cancelled 4.3
Chloride Cancelled 100
Carbon Dioxide Cancelled 20 L
BUN Cancelled 38 H
Creatinine Cancelled 1.3
Glucose Cancelled 189 H
Calcium Cancelled 7.9 L
Total Bilirubin 2.8 H D
AST 41
ALT 24
Alkaline Phosphatase 67
Vital Signs:
Vital Signs
Temp Pulse Resp BP Pulse Ox
98.7 F 62 18 121/61 100
08/15/24 07:00 08/15/24 07:50 08/15/24 07:50 08/15/24 06:17 08/15/24 08:00
I&O
08/14/24 08/15/24 08/16/24
06:59 06:59 06:59
Intake Total 330.0 / 330.0
Output Total 600 / 600 50 / 50
Balance -600 / -430.5 280.0 / 280.0
Review of Systems
-
Unable to obtain full review of systems at this time due to: Patient Intubation
Physical Exam
-
General: No Apparent Distress and Comfortable
HEENT: Other (Intubated )
Cardiac: Regular Rhythm and S1/S2; Negative Murmur or Rub
GI: Soft, Nondistended and Tender
Neuro: Awake (sedation vacation) and Alert
Psych: Calm
--- NOTE | 2024-08-15 09:30 | RESPNOTE ---
pt extubated at 0930 to 4lpm of nasal cannula. 02 sats of 99% noted.
[2024-08-15 09:39] LABS: Glucose - Point of Care 189 mg/dl (70-99)
--- NOTE | 2024-08-15 10:05 | CON.ID ---
Consultation
-
Date/Time Consultation Requested: 08/15/24 9:26
Date/Time Consultation Performed: 08/15/24 12:13
Requesting Provider: Dr Santana
Performing Provider: Dr Sommer
Reason for Consultation: infected left groin pseudoaneurysm
Chief Complaint / Past History
Chief Complaint
fever, hyperglycemia
History of Present Illness
Mr Trinidad is a 74 year old male with history seizure DO, PAD s/p L iliofemoral endarterectomy, long bovine pericardial patch angioplasty, left common femoral artery patch on 08/04 on amoxicillin 500 mg PO TID and doxycycline 100 mg PO BID as post
operative prophylaxis who represented here 08/14 for pain at the surgical site, serosanguineous drainage and swelling of the L calf. Medial history also notable for class III obesity of ozempic.
Reports told Crohns disease in remission for several years - not currently on any treatment and no history of IV treatment, previously on sulfasalazine.
Since arrival here Tmax 100.2 orally, developed hypotension here and required norepinephrine to a max dose of 8 mcg/min currently on 4 mcg/min, wbc initially 12 now 16.8, hg b10.7 plt 246, L shift persists, cr 1.5 now 1.3, na initially 125 now 129,
lactic acid 1.8, t bilit initially 0.9 now 2.8, ast 38 now 41, alt 32 now 24, alk phos 101 now 67, CXR moderate opacity in the retrocardiac space (suspected atelectasis), CT abd aorta angio with runoff: 4x4x6 pseudoaneurysm with compression of
lummi common femoral and proximal superficial femoral arteria, soft tissue collection 3.5 x 3.5 x 10 cm increased in size copared with 08/10 suggesting infected collection, fatty liver, mrsa screen of the nost is pending, wound culture gram stain
no wbc and no organisms, anaerobic culture pending, 08/14 blood cultures x2 in progress, he was taken to the OR emergently overnight for Left external iliac artery to above knee popliteal artery obturator bypass with 8mm ringed Propaten graft, 2)
Wide debridement left groin with excision infected pseudoaneurysm and bovine pericardial patch (excision of entirety of patch), with pulse lavage irrigation, since the pressors have been weaning, patient is on empiric vancomycin and zosyn - also had
a dose of clindamycin in the ER,
Past History
Additional Past Medical History:
PAD status post left iliofemoral endarterectomy 10 days ago, CAD, hypertension, diabetes, Crohn's disease, hypercholesteremia, pancreatitis, obstructive sleep apnea, GERD, BPH, glaucoma, former smoker, seizure disorder
Past Surgical History: None
Allergy History:
Sulfa (Sulfonamide Antibiotics) [Sulfa (Sulfonamides)] Allergy (Verified 08/04/24 09:49)
Itching
Medications Reviewed: Yes
Social History
Tobacco: Non-Smoker
Alcohol: None
Drug: None
Family History
Family History: Not Pertinent
Review of Systems
Review of Systems
General: Negative Fever or Chills
All systems: All other systems were reviewed and were negative
Vital Signs
Temp Pulse Resp BP Pulse Ox
98.7 F 62 18 121/61 100
08/15/24 07:00 08/15/24 07:50 08/15/24 07:50 08/15/24 06:17 08/15/24 08:00
Physical Exam
Physical Exam
Constitutional: No Acute Distress
Cardiovascular: Regular Rate and S1/S2; Negative Murmur or Rub
Pulmonary: Clear and Symmetric; Negative Wheezes, Rales or Rhonchi
Gastrointestinal: Soft, Non Tender, Non Distended and Normal Bowel Sounds
Skin: Warm and Dry; Negative Rash or Jaundice
Wound: Other (wound vac in place, surgical sites dressings clean, dry, intact)
Neurological: Awake
Lab / Diagnostic Study Results
08/15/24 05:27
08/15/24 05:27
Abs Immat Gran (auto) 0.2 10^3/uL (0-0.05) H 08/15/24 05:27
Absolute Neuts (auto) 14.7 10^3/uL (1.4-6.5) H 08/15/24 05:27
Absolute Lymphs (auto) 0.8 10^3/uL (1.2-3.4) L 08/15/24 05:27
Absolute Monos (auto) 1.0 10^3/uL (0.1-0.6) H 08/15/24 05:27
Absolute Basos (auto) 0.1 10^3/uL (0-0.2) 08/15/24 05:27
Immature Gran % 1.4 % (0-0.5) H 08/15/24 05:27
Neutrophils % 87.2 % (42.2-75.2) H 08/15/24 05:27
Lymphocytes % 4.8 % (20.5-51.1) L 08/15/24 05:27
Monocytes % 6.1 % (1.7-9.3) 08/15/24 05:27
Eosinophils % 0.1 % (0-6) 08/15/24 05:27
Basophils % 0.4 % (0-2) 08/15/24 05:27
PT 16.4 Sec (11.4-14.6) H 08/15/24 05:27
INR 1.34 08/15/24 05:27
Lactic Acid Cancelled 08/14/24 20:45
Microbiology Results
Micro:
08/15/24 08:57 MRSA Screen - Pending
Nose
08/15/24 01:44 Wound Culture - Pending
Groin - Left Gram Stain - Pending
08/15/24 01:44 Anaerobic Culture - Pending
Groin - Left
08/14/24 18:43 Blood Culture - Pending
Blood/Venous
08/14/24 18:43 Blood Culture - Pending
Blood/Venous
Assessment / Plan
Surgical Site Infection/vascular graft infection
S/p debridement and excision of infected pseudoaneurysm and bovine pericardial patch
Seizure Disorder - on phenytoin
Class III obesity of ozempic
- aerobic and anaerobic cultures sent from the OR
- blood cultures x2 in progress
- source appears to be controlled; OR note reviewed
- agree with vancomycin and zosyn
- will reviewed with patient if any active treatments for Crohns disease when able
follow clinically
[2024-08-15 10:55] LABS: Glucose - Point of Care 165 mg/dl (70-99)
--- NOTE | 2024-08-15 11:22 | W.PN.VS ---
Today's Communication / Plan
-
wean pressors
antbx
Assessment/Plan
-
doing well post obturator bypass and pseudoaneurysm ligation
- cont antbx
- cultures pending
- oob to chair
- vac
- wean pressors
Subjective Data
-
Date of Service: August 15, 2024
looks great overall
extubated
pain controlled
Objective Data
-
Vital Signs
Temp Pulse Resp BP Pulse Ox
99.5 F 62 18 121/61 100
08/15/24 11:00 08/15/24 07:50 08/15/24 07:50 08/15/24 06:17 08/15/24 08:00
Intake and Output
08/14/24 08/15/24 08/16/24
06:59 06:59 06:59
Intake Total 640.0 / 640.0
Output Total 600 / 600 165 / 165
Balance -600 / -430.5 475.0 / 475.0
Intake:
IV fluids (Total) 640.0 / 640.0
Nss 1,000 ml @ 125 mls/hr IV . 500 / 500
Q8H ROSMERY Rx#:[id number]
fent 2.5 / 2.5
insulin 37 / 37
levo 82.5 / 82.5
precedex
Output:
Urine, Perez 500 / 500 165 / 165
Urine, Voided 100 / 100
Lab Results
08/15/24 05:27
08/15/24 05:27
Calcium 7.9 mg/dl (8.4-10.2) L 08/15/24 05:27
Phosphorus 3.4 mg/dl (2.5-4.5) 08/15/24 05:27
Magnesium 2.4 mg/dl (1.6-2.3) H 08/15/24 05:27
Total Bilirubin 2.8 mg/dl (0.2-1.3) H D 08/15/24 05:27
AST 41 U/L (17-59) 08/15/24 05:27
ALT 24 U/L (0-50) 08/15/24 05:27
Alkaline Phosphatase 67 U/L (38-126) 08/15/24 05:27
Total Protein 4.6 g/dl (6.3-8.2) L 08/15/24 05:27
Albumin 2.5 g/dl (3.5-5.0) L 08/15/24 05:27
Physical Exam
-
vac in place
dressings intact
+ dp and PT signal
erythema improved
[2024-08-15 11:59] LABS: Glucose - Point of Care 120 mg/dl (70-99)
--- NOTE | 2024-08-15 12:00 | SUR.OPER ---
ABG results reviewed by Dr. Corbett. Received further orders to extubate. Pt. extubated by RT @ 0930 to 2LNC, tolerating extubation. NPO status maintained. Restraints removed post extubation. Precedex off @ 0930- see flow sheet. Attempted to
turn levo gtt off, back on d/t hypotension- see flow sheet. Dr. Melton to bedside; assessed pt and noted firm tissue around wound vac site. Neurovascular checks completed per orders- see flow sheet. Pt. instructed on how to report care
concerns and call sony rhoades in reach.
[2024-08-15 12:25] LABS: Vancomycin Random 8.8 ug/ml
[2024-08-15 12:39] LABS: Glucose - Point of Care 105 mg/dl (70-99)
--- NOTE | 2024-08-15 13:11 | PHA.VAN.IN ---
Assessment
- Assessment
Renal Function: Appears elevated from baseline
Concomitant Antimicrobials: piperacillin/taxo
AUC Dosing Plan
- Empiric Dosing
Initial / Loading Dose: 1500 mg - given in OR 08/14 23:08
Maintenance Regimen: dose by level for now
random drawn today around noon was 8.8
Plan
- Plan
Maintenance Regimen: dose by level - redose today - 1500 mg x 1 dose now
Monitoring: repeat random in AM
Pharmacokinetics Vancomycin I
- -
Patient Age: 74
Patient Sex: Male
Vancomycin Day #: 1
Indication: Bacteremia
Requesting Provider: Geronimo
Pertinent Antimicrobial Allergies:
sulfa antibiotics - itching
Height / Weight:
Height 5 ft 8 in
Actual Weight 119.6 kg
Pertinent Past Medical History: BMI 40;
- Vital Signs / Lab Results
Temp Pulse Resp BP Pulse Ox
99.5 F 62 18 121/61 100
08/15/24 11:00 08/15/24 07:50 08/15/24 07:50 08/15/24 06:17 08/15/24 08:00
Lab Results - Hematology
08/14/24 08/15/24
16:46 05:27
WBC 12.1 H 16.8 H
Lab Results - Chemistry
08/14/24 08/14/24 08/14/24
16:46 18:43 18:43
BUN 40 H 40 H 39 H
Creatinine 1.5 H 1.6 H
Estimated Creat Clear 5
Albumin 3.5
08/14/24 08/14/24 08/14/24
18:43 18:43 22:30
BUN Cancelled
Creatinine 1.5 H Cancelled
Estimated Creat Clear 52 55 Cancelled
Albumin
08/15/24
05:27
BUN 38 H
Creatinine 1.3
Estimated Creat Clear 63
Albumin 2.5 L
08/14/24 08/14/24
16:46 20:45
Lactic Acid 1.8 Cancelled
Microbiology Results
08/15/24 01:44 Gram Stain - Preliminary
Groin - Left
[2024-08-15 13:46] LABS: Glucose - Point of Care 87 mg/dl (70-99)
[2024-08-15] MEDS: VANCOCIN 300 MG IV (14:04)
[2024-08-15] MEDS: VANCOCIN 300 ML IV (14:04)
[2024-08-15] MEDS: DILAUDID 0.5 MG IV (14:32)
[2024-08-15 15:42] LABS: Glucose - Point of Care 160 mg/dl (70-99)
[2024-08-15] MEDS: TYLENOL 650 MG PO (16:25)
[2024-08-15] MEDS: DILAUDID 1 MG IV (17:33)
--- NOTE | 2024-08-15 17:36 | CM ---
Patient discharged to [facility] on 08/12/2024. Returned to 08/14, currently in ICU with sepsis, multiple medical consults, surgery for infected pseudoaneurysm.
Advance Directive on chart.
CM will hold off on IA at this time. From prior admission pt lives alone in a 2 story home with 2 entry steps. He has a cane and walker which he is not currently using. He has a brother who lives in [place] and may be able to stay locally to
help with recovery.
CM to follow supportively.
[2024-08-15 17:54] LABS: Glucose - Point of Care 130 mg/dl (70-99)
--- NOTE | 2024-08-15 18:39 | W.PN.ANS.POP ---
Anesthesia Post Operative
- Anesthesia Post Op Note
Vital Signs Stable-See Nursing Note: Yes
Airway Patent: Yes
Adequate Pain Control: Yes
Change in Mental Status: No
Current Postoperative Nausea & Vomiting: No
Anesthesia Complications: No
General Anesthetic Recall: No
Unplanned Admission: No
Post Op Hydration Adequate: Yes
[2024-08-15 19:39] LABS: Glucose - Point of Care 73 mg/dl (70-99)
[2024-08-15] MEDS: COLACE 100 MG PO (20:27)
[2024-08-15] MEDS: DILANTIN 200 MG PO (20:27)
[2024-08-15 20:55] LABS: Glucose - Point of Care 82 mg/dl (70-99)
--- NOTE | 2024-08-15 21:09 | PTCARENOTE ---
On assessment pt drowsy, AAOx3, c/o pain to L groin, PRN meds given see MAR, low grade temps, SR on the monitor, +doppler pulses to LLE, +PT to RLE and absent DP pulse in RLE, Vascular surgery Natividad rainey texted and made aware, no new orders
at this time, 2L NC, 99%, clear liquid diet, decreased appetite, sim placed for critical Is and Os, L groin with wound VAC, functioning properly, firmness to upper thigh around wound VAC noted and dayshift RN states Vascular surgery was aware and
seen pt this evening, L ABD dressing C/D/I, and L thigh dressing C/D/I. insulin gtt infusing per MD order, call cardoza in reach.
--- NOTE | 2024-08-15 21:19 | OR.RPT ---
Addendum entered and electronically signed by Chema Colin MD 08/15/24 21:48:
The sentence below should read: '...due to the high complexity of the operative procedure, and the emergent nature, the lack of other assistance, multiple surgical sites,
CO-surgeons were required)'.
Original Note:
Operative Report
Operative Report
PROCEDURE DATE: 08/14/2024 (procedure completed 08/15/2024).
Preoperative diagnosis: Infected left femoral artery ruptured pseudoaneurysm status post femoral endarterectomy/bovine pericardial patch angioplasty
Postoperative diagnosis: Same
Procedure:
1. Emergent left external iliac artery to above-knee popliteal artery obturator bypass with 8 mm ringed Propaten graft.
2. Wide debridement left groin within excision infected pseudoaneurysm and bovine pericardial patch (excision of entirety of patch) with pulse lavage irrigation.
3. Wound VAC placement.
Surgeon: Cristi
Co-Surgeon: Geronimo (due to the high complexity of the operative procedure, and the emergent nature, the lack of other assistance, multiple surgical sites, surgeons were required).
Assembler Cards And Announcements: None
Complications: None
Anesthesia: General
Indications for procedure:
Patient had undergone recent left femoral endarterectomy with bovine pericardial patch angioplasty. Now had presented with ruptured infected left femoral artery pseudoaneurysm. Patient was emergently brought to the operating room after full
discussion of risk/benefits/alternatives.
Description of procedure:
Patient was identified brought to the operating room placed on the table in supine position. After the adequate administration of anesthesia he was prepped and draped in the standard surgical fashion (including the use of occlusive adhesive
dressings/ioband). A standard preoperative timeout was undertaken and everybody was in agreement the plan. Concomitant incisions were made on the left lower quadrant abdomen and the mid to distal left thigh (anterior/medial). The left lower
quadrant abdominal wall incision was parallel to the inguinal ligament few centimeters cephalad (retroperitoneal incision to expose iliac vessels). Standard technique was undertaken in the left lower quadrant incision to incise through the external
oblique fascia and then through the internal oblique muscle and the transversalis fascia. Peritoneum/retroperitoneal fat was swept medially and cephalad. Common iliac artery and then external iliac artery were identified and carefully
circumferentially dissected with Vesseloops passed around them.
In the mid to distal thigh the incision was carried through the skin and subcutaneous tissue. A plane was created between the quadriceps muscles and the sartorius muscle. Posterior to the sartorius muscle of the superficial femoral artery was
identified. It was noted to be somewhat soft and clamp above where I dissected it. There was heavy plaque more distally. I initially just isolated here (where it was soft) and passed Vesseloops around it which are doubled but not yet tightened.
Patient had known distal SFA/above-knee popliteal proximal disease. However I felt that likely would want to anastomosis distally the motor patrol operator bypassed into this segment of SFA so as to retrograde fill the profunda possible once we reconstructed
the groin.
At this point a tunnel was created through the obturator foramen. Careful palpation was undertaken in the pelvis to identify the obturator foramen. (The ischial bones/ring could be palpated in the foramen was palpated). As is the case typically,
there was firm fibrotic tissue. We forcefully bluntly were able to downing this drawn like membrane on the superior/medial aspect so as to avoid any injury to the obturator nerve. Once this was done a tunnel was created between this site and the
thigh SFA exposure site with a Jim tunneler. An 8 mm ringed Propaten was tunneled. The patient was given 6000 units of intravenous heparin. Next, external iliac artery was clamped proximally in our field and was ligated with heavy silk ties
distally. It was then transected. An end-to-end anastomosis was then fashioned between the 8 mm ringed graft and the external iliac artery using running [place] CV 6 suture. Suture line was completed and tied down and the distal graft was clamped
and the proximal clamp was released. Good pulsatile flow was noted into the graft. Hemostasis was fully noted along the suture line.
At this point redundancy in the graft was and we turned our attention to the distal anastomosis. Due to heavy plaque (bulky popcorn plaque to palpation) just distal to the soft point on the SFA, we felt that sewing more distally would be more
prudent here. Therefore we extended our incision here. We then dissected further distally until we got beyond the adductor canal and identified the above-knee popliteal artery. The artery was noted to be much softer finally here. At this point
we then circumferentially carefully dissected this and passed Vesseloops around it. The above-knee popliteal artery was now clamped proximally and distally. A longitudinal arteriotomy was made with an 11 blade and then extended using a Maya
scissor. The distal graft was then beveled after the rings were removed, and an end-to-side anastomosis was fashioned to the above-knee popliteal artery with a [place] CV 6 running suture. Prior to completing and tying down our suture line the minto
arteries were backbled and the graft was flushed out. Heparinized saline was irrigated and the suture line was tied down. We then released our graft clamp and the Vesseloops on the minto artery. There is excellent pulsatile flow into the
popliteal artery distal to the anastomosis. Doppler confirmed excellent signal. Doppler actually confirmed signal in the popliteal artery and SFA proximal to the anastomosis. This suggested reasonable retrograde plaque in that vicinity.
At this point we were satisfied with the bypass. Both sites were again carefully assessed and hemostasis was fully achieved. Sites were then irrigated and then closed in layers. The retroperitoneal incision was closed in the standard fashion
using #1 PDS running suture to close the fascial layer. Vicryl suture and skin clips were used to close the remaining layers. Similarly the thigh incision was then closed with Vicryl suture layers (including muscle reapproximation/closure over the
graft) followed by skin clips. Occlusive dressings were then applied to both the sites.
Next, we turned our attention to the groin. Skin tanya removed. Subcutaneous sutures and deeper suture layer (Vicryl sutures) were all cut out with Metzenbaum scissor. I soon as we did that we had brisk pressurized bleeding from the groin.
Manual pressure was applied. This was done after significant hematoma was evacuated. The distal aspect of the patch angioplasty site was identified quickly and clamped on the proximal SFA. The patch was intact here. Of note, the backbleeding
from the SFA was actually pulsatile, suggesting that despite distal SFA disease (proximal to our distal anastomosis of the obturator bypass) retrograde flow from pass itself was making it reasonably. It was disrupted as was evident on the CT scan
in its proximal portion of the common femoral artery laterally. The profunda was identified and quickly clamped with a profunda clamp. Now there was still some antegrade despite are having ligated the external iliac artery and a retroperitoneal
field. Therefore we carefully dissected proximal to the patch in the distal external iliac artery from this groin incision and circumferentially dissected the artery just proximal to the patch and then placed 2 heavy silk ties to ligate the artery.
Other branches along the course of the common femoral artery were controlled with Vesseloops as well. At this point we noted hemostasis. We then excised the entirety of the patch and debrided some of the arterial wall as well. Once we did this,
we noted that there is a significant distance between the profunda and the healthy SFA distal to the patch. We had moved the clamp onto the SFA (distal to the patch). Now we ligated the SFA here with heavy silk ties. That it would be
significantly challenging to revascularize the SFA, and would likely involve an additional conduit. Based on our infectious concerns, we felt that that was not ideal. In addition based on the good backbleeding from the profunda, we did not feel
that the profunda needed to be directly revascularized at this point. Therefore at this point, we pulse lavage irrigated the groin site. Tissues were debrided as needed. Given the lack of any vascular anastomosis, we felt a sartorius flap would
not be necessary at this point. Next, Vicryl suture deeper layer was closed. Subcutaneous wound VAC was then applied. The patient tolerated the procedure well. Upon completion he had dopplerable DP and PT signals in the left foot.
[2024-08-15 21:47] LABS: Glucose - Point of Care 109 mg/dl (70-99)
[2024-08-15 22:53] LABS: Glucose - Point of Care 125 mg/dl (70-99)
[2024-08-15 23:46] LABS: Glucose - Point of Care 115 mg/dl (70-99)
[2024-08-16] VITALS (17 sets, daily range): BP systolic 85–138; BP diastolic 47–60; BMI 41.8
--- NOTE | 2024-08-16 | PTCARENOTE ---
no changes from prior assessment, prn meds given see DEC, call cardoza in reach
[2024-08-16] MEDS: ZOSYN 50 IV ×4 (00:11→17:28)
[2024-08-16] MEDS: ROXICODONE 5 MG PO ×5 (00:11→19:24)
[2024-08-16] MEDS: TYLENOL 650 MG PO ×5 (00:12→19:25)
[2024-08-16] MEDS: LEVOPHED 250 IV (01:40)
[2024-08-16 01:42] LABS: Glucose - Point of Care 88 mg/dl (70-99)
[2024-08-16] MEDS: NSS 1000 IV (01:44)
--- NOTE | 2024-08-16 01:50 | PTCARENOTE ---
SBPs low in the 80s, see vital sign flow sheet, pt awake and asymptomatic, denies chest pain or SOB at this time, +doppler pulses in LLE, firmness around the wound VAC remains the same as prior assessment, see flow sheet. Levo gtt restarted per
order. call cardoza in reach
[2024-08-16 03:39] LABS: Glucose - Point of Care 142 mg/dl (70-99)
[2024-08-16 04:34] LABS: Hematocrit 24.3 % (39.0-52.0); Hemoglobin 8.6 g/dL (13.0-18.0); Mean Corp Hgb Conc. 35.4 g/dL (33.0-37.0); Mean Corpuscular Hgb 30.2 pg (27.0-31.0); Mean Corpuscular Volume 85.3 fL (80.0-94.0); Mean Platelet Volume 8.8 fL (7.4-10.4); Platelet Count 249 10^3/uL (130-400); Red Blood Cell Count 2.85 10^6/uL (4.70-6.10); Red Cell Dist. Width 16.1 % (11.5-14.5)
[2024-08-16 05:01] LABS: Vancomycin Random 10.8 ug/ml
[2024-08-16 05:17] LABS: ALT (SGPT) 30 U/L (0-50); AST (SGOT) 64 U/L (17-59); Albumin 2.3 g/dl (3.5-5.0); Alkaline Phosphatase 66 U/L (38-126); Blood Urea Nitrogen 31 mg/dl (9-20); Calcium 7.4 mg/dl (8.4-10.2); Carbon Dioxide 14 mmol/L (22-30); Chloride 103 mmol/L (98-107); Estimated Creatinine Clearance 64 ml/min; Glucose 130 mg/dl (70-99); Magnesium 2.4 mg/dl (1.6-2.3); Potassium 3.9 mmol/L (3.5-5.1); Sodium 132 mmol/L (135-145); Total Protein 4.3 g/dl (6.3-8.2); eGFR 57.65
[2024-08-16 06:37] LABS: Glucose - Point of Care 124 mg/dl (70-99)
[2024-08-16] MEDS: SODIUM BICARBONATE 1150 MEQ IV (07:31)
[2024-08-16] MEDS: DILANTIN 200 MG PO ×2 (07:44→19:24)
[2024-08-16] MEDS: LIPITOR 40 MG PO (07:44)
[2024-08-16] MEDS: HEPARIN 5000 UNITS SC ×2 (07:45→19:23)
[2024-08-16] MEDS: COLACE PO ×2 (07:45→19:26)
[2024-08-16] MEDS: ASPIR LOW (ENTERIC COATED) 81 MG PO (07:45)
[2024-08-16] MEDS: PROTONIX 40 MG PO (07:45)
--- NOTE | 2024-08-16 08:00 | PTCARENOTE ---
recd 0715 handoff with pulse checks with previous RN. dopplers noted, unable to locate R DP, unchanged. wound vac maintained, discomfort especially with moving. edema unchanged L thigh/groin into inner thigh. sim patent. in good spirits,
rests when undisturbed. call cardoza in reach. room air, sats good, levophed titration in progress, see intervention.
--- NOTE | 2024-08-16 08:02 | PHA.VAN.FU ---
Vancomycin Assessment / Plan
- Assessment
Renal Function: Stable (1.5->1.3->1.3)
WBC's are: Trending Down (16.8->14.0)
In the past 24 hrs, patient has been: Afebrile
Concomitant Antimicrobials: piperacillin/tazo
- Assessment - Therapeutic Drug Monitoring
Random Level: 10.8 ~ 14 hours post 1500 vanc dose yesterday
- Dosing Plan
Continue: dose by random level
Dosing by Level: Re-dose today (1500 mg x 1 dose)
- Monitoring Plan
Random Level: repeat random level am 08/16
- Follow Up
Pharmacy will continue to follow.
Vancomycin Follow UP
- -
Patient Age: 74
Patient Sex: Male
Vancomycin Day #: 2
Indication: Bacteremia
Requesting Provider: Geronimo
Pertinent Antimicrobial Allergies:
sulfa antibiotics - itching
Height / Weight:
Height 5 ft 8 in
Actual Weight 124.8 kg
Pertinent Past Medical History: BMI 40;emergent vasc OR 08/15 PM
- Vital Signs / Lab Results
Temp Pulse Resp BP Pulse Ox
99.1 F 74 18 131/60 97
08/16/24 01:19 08/16/24 07:45 08/16/24 07:45 08/16/24 07:37 08/16/24 07:45
Lab Results - Hematology
08/14/24 08/15/24 08/16/24
16:46 05:27 04:15
WBC 12.1 H 16.8 H 14.0 H
Lab Results - Chemistry
08/14/24 08/14/24 08/14/24
16:46 18:43 18:43
BUN 40 H 40 H 39 H
Creatinine 1.5 H 1.6 H
Estimated Creat Clear 5
Albumin 3.5
08/14/24 08/14/24 08/14/24
18:43 18:43 22:30
BUN Cancelled
Creatinine 1.5 H Cancelled
Estimated Creat Clear 52 55 Cancelled
Albumin
08/15/24 08/16/24
05:27 04:15
BUN 38 H 31 H
Creatinine 1.3 1.3
Estimated Creat Clear 63 64
Albumin 2.5 L 2.3 L
08/14/24 08/14/24
16:46 20:45
Lactic Acid 1.8 Cancelled
Microbiology Results
08/14/24 18:43 Blood Culture - Preliminary
Blood/Venous No Growth in 24 hours- Final report to follow
08/14/24 18:43 Blood Culture - Preliminary
Blood/Venous No Growth in 24 hours- Final report to follow
08/15/24 01:44 Gram Stain - Preliminary
Groin - Left
Therapeutic Drug Monitoring
Random Vancomycin 10.8 ug/ml 08/16/24 04:15
--- NOTE | 2024-08-16 08:18 | W.PN.INTV ---
Today's Communication / Plan
Recommendations
ABx as per ID
Stop bicarb gtt now that pH is >7.4
Transition off insulin gtt back to U-500 SQ insulin
Wound VAC as per surgery
Pain control
Trend leukocytosis
Incentive spirometry
Increase activity as able
Will follow
Assessment
-
74-year-old male with a history of hypertension, diabetes, Crohn's, hyperlipidemia, pancreatitis, LEONEL, GERD, BPH, former smoker as well as seizure disorder with PAD status post iliofemoral endarterectomy 10 days prior to admission and admitted with
infected rupture requiring emergent OR-customer supply coordinator consulted for postoperative ventilator/critical care management 08/15/2024.
Impression:
Sepsis without shock due to infected L-groin pseudoaneurysm/SSI
PAD status post left iliofemoral endarterectomy 10 days prior to admission with subsequent infection/rupture
s/p left external iliac artery to above-knee popliteal artery obturator bypass, white debridement left groin, excision infected pseudoaneurysm and bovine pericardial patch with pulse lavage irrigation-Dr. Colin 08/15/2024
Leukocytosis
Anemia
Hyponatremia
Hyperglycemia - now resolved
Metabolic acidosis with increased anion gap
Hypoalbuminemia
Conditions present prior to admission:
Hypertension.
Hyperlipidemia.
Diabetes.
CAD.
Crohn's.
Pancreatitis.
LEONEL.
GERD.
BPH.
Glaucoma.
Former smoker.
Obesity.
Seizure disorder on phenytoin
PAD-left iliofemoral endarterectomy 07/2024..
Plan
Admitted patient to medical intensive care unit for persistent hypotension despite fluid resuscitation requiring pressors
He was extubated on 08/15 and now on room air as of 08/16
Nebulizers if needed-currently not bronchospastic
Left groin superficial culture now growing Pseudomonas spp - follow-up sensitivities and ID on board for antibiotic management
Empiric antibiotics-vancomycin and Zosyn initiated on 08/15; s/p Clinda on 08/14
Trend leukocytosis and monitor fever curve
Pain control
Vascular surgery following-correspondence reviewed
Operative records reviewed
Follow hemoglobin
Transfuse if needed-received significant transfusions intraoperatively after ruptured
Has received 3 units PRBC since admission with last transfusion on 08/15/2024
Monitor blood sugar; currently on insulin gtt - currently on glycemic insulin gtt w/ q2hr POCT
Wean off insulin gtt and transition back to U-500 SQ insulin - diabetic PLAY LEADER on board for assistance
HbA1C: 7.1 on 08/05/2024
Patient was on a bicarb drip --> blood gas checked and pH is 7.43. Stop bicarb drip now and continue to monitor serum bicarbonate level and pH
Diet as per surgery - now on ADA
DVT prophylaxis-on heparin subcu --> change to q8hr
Early nutrition
Early mobilization/bedside range of motion
Details about his obstructive sleep apnea unknown-May benefit from outpatient pulmonary/sleep disorders follow-up
Critical care statement: A total of 47 minutes of critical care time was provided for this patient today. This includes management of unstable vital signs, evaluation of the patient at bedside, reviewing the patient's pertinent medical records
including radiographs, microbiology, laboratory evaluations, and discussion with primary team, consultants, pharmacy, nutrition, physical therapy, case management, charge nurse, critical care nursing, and respiratory therapy.
Diagnostic data:
Chest x-ray 07/30/2024-NAD
Chest x-ray 08/15/2024-endotracheal tube in good position, mildly decreased bilateral lung volumes, subsegmental atelectasis
CT abdomen 08/14/24-4 x 6 cm pseudoaneurysm, gas containing soft tissue collection anterior to the pseudoaneurysm fatty infiltration of the liver
Subjective Dataa
Subjective Data
Date of Service:
Date of Service: August 16, 2024
Chief Complaint: Manager Market Research Follow Up
Subjective:
Patient seen and evaluated this morning. BP 113/35, heart rate of 84 saturating 97% on room air. He is in no acute distress. Left groin wound VAC was changed this morning. He is having some left groin pain but no left lower extremity numbness or
tingling or weakness. He also denies shortness of breath or chest pain. Pressors were discontinued this morning. He is currently on insulin drip at 2.4 units/hr. He is on a bicarb gtt at 100cc/hr.
Review of Systems
General: Other (Negative unless mentioned above)
Objective Data
Data Reviewed
Vital Signs / I&O / Oxygen:
Vital Signs
Temp Pulse Resp BP Pulse Ox
98.6 F 74 18 131/60 97
08/16/24 08:43 08/16/24 07:45 08/16/24 07:45 08/16/24 07:37 08/16/24 07:45
Intake and Output
08/15/24 08/16/24 08/17/24
06:59 06:59 06:59
Intake Total 3915.6 / 4060.6 145 / 145
Output Total 600 / 600 1455 / 1505 50 / 50
Balance -600 / -430.5 2460.6 / 2555.6 95 / 95
SaO2 [CPAP] 100
SaO2 97
Nasal Cannula flow liters per 2
minute
Physical Exam
General: Respiratory Distress (negative), Comfortable, Pain (left groin site), Chills (negative) and Sweats (negative)
HEENT: Normocephalic and Anicteric
Cardiovascular: S1-S2, Murmur (negative) and Peripheral Edema (+2 left lower extremity pitting edema, no edema seen on the right lower extremity)
Respiratory: Wheeze (negative), Crackles (negative), Rhonchi (negative) and Non-Labored Respirations
GI: Soft, Distended (Abdominal obesity), Non Tender and Normal Bowel Sounds
Neurology: AO x 3 and Tremors (negative)
Skin: Warm, Dry, Cyanosis (negative), Jaundice (negative) and Other (Excoriation seen in the lower extremities bilaterally with some mild erythema from stasis dermatitis)
Labs/Micro/Reports
Lab Data
08/16/24 04:15
08/16/24 04:15
Laboratory Results
08/15/24
09:01
pH 7.42
pCO2 34 L
pO2 170 H
HCO3 22.1
O2 Delivery Level 40 cpap vent wean
Microbiology
08/14/24 18:43 Blood/Venous Blood Culture - Preliminary
No Growth in 24 hours- Final report to follow
08/14/24 18:43 Blood/Venous Blood Culture - Preliminary
No Growth in 24 hours- Final report to follow
08/15/24 01:44 Groin - Left Gram Stain - Preliminary
--- NOTE | 2024-08-16 08:27 | PN.DE.MGMTRT ---
Insulin Management
- -
08/16/2024: Diabetes management Consult:
74 year old male readmitted on 08/14 for infected left femoral artery ruptured pseudoaneurysm after long hospitalization 07/30-08/12 s/p Left femoral endarterectomy. PMH: CAD, LEONEL, GERD, HTN, PAD, Crohn's disease, Hypercholesterolemia, H/O
pancreatitis, BPH, Glaucoma, Former smoker, Seizure disorder and T2DM. Pt underwent emergent left external iliac artery to above-knee popliteal artery obturator bypass and debridement with wound vac placement.
Recent A1C 7.1%, follows Endo Dr. Rogers Biswas at [place]. Uses [employer] Cheryl 3.
Pt was readmitted with Hyperglycemia. He reports that he was not receiving his regular doses of U-500 while at [facility] because the facility did not have that type of insulin in stock, instead he was receiving NovoLog AC and Lantus @[facility], which he
believes contributed to uncontrolled blood sugars.
Prior to discharge last week, his U-500 doses were adjusted due to reduce CHO intake. Pt reports that he has no appetite but is willing to try ordering lunch now.
He is awake, A/O x3, resting in bed, pleasant, offers no complaints, able to discuss diabetes mgt.
POD #1, doing well. Remains on continuous insulin infusion. Glucose range 88 to 142, requiring 0.5 to 6 units of insulin/hr
Will transition off drip. Give U-500 20 units now. Turn drip off 1 hr after administration of SQ insulin
Will dose reduce U-500 and start 40 units in AM @ breakfast, 20 units @ lunch, 30 units @ HS and moderate corrective insulin with meals.
Discussed with pt and encouraged him to add carbs to his meals as permissible with his 2000 tanmay diet.
Will foloow and make further adjustments if needed
Diabetes History
- -
Type of Diabetes: 2 requiring insulin
Pre-Admission Diabetes Regimen
08/16/24
04:15
Creatinine 1.3
Insulin Pump Settings
IP Diabetes Regimen
08/15/24 08/15/24 08/15/24
08:36 09:27 10:44
Glucose
POC Glucose 200 H 189 H 165 H
08/15/24 08/15/24 08/15/24
11:48 12:27 13:35
Glucose
POC Glucose 120 H 105 H 87
08/15/24 08/15/24 08/15/24
15:31 17:43 19:27
Glucose
POC Glucose 160 H 130 H 73
08/15/24 08/15/24 08/15/24
20:36 21:34 22:41
Glucose
POC Glucose 82 109 H 125 H
08/15/24 08/16/24 08/16/24
23:34 01:29 03:24
Glucose
POC Glucose 115 H 88 142 H
08/16/24 08/16/24
04:15 06:22
Glucose 130 H
POC Glucose 124 H
Patient Education
[2024-08-16 08:45] LABS: Glucose - Point of Care 95 mg/dl (70-99)
--- NOTE | 2024-08-16 09:08 | W.PN.ID1 ---
Date of Service
Date of Service: August 16, 2024
Today's Communication
c/w vancomycin and zosyn
Assessment / Plan
Surgical Site Infection/vascular graft infection
S/p debridement and excision of infected pseudoaneurysm and bovine pericardial patch
Seizure Disorder - on phenytoin
Class III obesity on ozempic
- aerobic and anaerobic cultures sent from the OR - no growth to date
- blood cultures x2 in progress - no growth to date
- agree with vancomycin and zosyn
follow clinically
Chief Complaint
-: Other (infected pseudoanuerysm and cellulitis)
Subjective / Review of Systems
remains afebrile
on minimal dose of norepi - 2 mcg/min
no overnight events
reports no treatments for crohns disease for years
Vital Signs / Physical Exam
Vital Signs
Vital Signs
Temp Pulse Resp BP Pulse Ox
98.6 F 74 18 131/60 97
08/16/24 08:43 08/16/24 07:45 08/16/24 07:45 08/16/24 07:37 08/16/24 07:45
Physical Exam
Constitutional: No Acute Distress, Chronically Ill and Obese
Cardiovascular: Regular Rate and S1/S2; Negative Murmur or Rub
Pulmonary: Clear and Symmetric; Negative Wheezes or Rales
Gastrointestinal: Soft, Non Tender, Non Distended and Normal Bowel Sounds
Skin: Warm and Dry; Negative Rash or Jaundice
Wound: Other (wound vac in place; surgical site dressings clean, dry, intact without strikethrough)
Objective Data
Lab Data
Lab Results
08/16/24 04:15
08/16/24 04:15
PT 16.4 Sec (11.4-14.6) H 08/15/24 05:27
INR 1.34 08/15/24 05:27
APTT 31.6 Sec (23.4-35.0) 08/15/24 05:27
Estimated Creat Clear 64 ml/min 08/16/24 04:15
Lactic Acid Cancelled 08/14/24 20:45
Total Bilirubin 1.0 mg/dl (0.2-1.3) D 08/16/24 04:15
AST 64 U/L (17-59) H 08/16/24 04:15
ALT 30 U/L (0-50) 08/16/24 04:15
Alkaline Phosphatase 66 U/L (38-126) 08/16/24 04:15
Most recent labs reviewed.
Micro Results:
08/14/24 18:43 Blood Culture - Preliminary
Blood/Venous No Growth in 24 hours- Final report to follow
08/14/24 18:43 Blood Culture - Preliminary
Blood/Venous No Growth in 24 hours- Final report to follow
08/15/24 01:44 Wound Culture - Pending
Groin - Left Gram Stain - no wbc and no organisms
08/15/24 08:57 MRSA Screen - Pending
Nose
08/15/24 01:44 Anaerobic Culture - Pending
Groin - Left
[2024-08-16] MEDS: VANCOCIN 300 ML IV (09:28)
[2024-08-16] MEDS: VANCOCIN 300 MG IV (09:28)
--- NOTE | 2024-08-16 09:54 | CON.VAS ---
Addendum entered and electronically signed by Arnaldo Sim III, MD 08/16/24 16:30:
This patient was seen and examined with LEYLA Lay. I agree with the history and physical exam as well as the assessment and plan.
Signed:
Arnaldo Sim III, MD
[facility] Vascular Surgery
[phone] ([id number])
Original Note:
Documented by User: LEYLA Lay 08/16/24 12:29
Consultation
Consultation Request
Date/Time Consultation Performed: 08/05/2108/16/2024 0800
Requesting Provider: Hospitalist
Performing Provider: Henna Mcleod NP-C for Chema Colin MD
Reason for Consultation: Left infected pseudoaneurysm
Medical History
-
Chief Complaint: Left wound drainage
History of Present Illness:
This is a 74 year old male with significant past medical history for CAD, hypertension, diabetes, Crohn's disease, hypercholesteremia, pancreatitis, obstructive sleep apnea, GERD, BPH, glaucoma, former smoker, and seizure disorder who presented to
our ED on 08/14/24 with reports of hyperglycemia and drainage from left thigh surgical incision. Patient is known to our surgical group as he underwent left ilio-femoral endarterectomy (very distal left external iliac artery, common femoral artery,
proximal superficial femoral artery, origin of profunda femoris) with long bovine pericardial patch angioplasty on 08/04/[address] obtained in ED resulted with new 4 x 4 by 6 cm pseudoaneurysm at left common femoral artery, prompting
emergent/urgent OR for Left external iliac artery to above knee popliteal artery bypass with an 8 mm Propaten graft tunnel through the obturator foramina; excision of common femoral artery, superficial femoral artery, and bovine pericardial patch
for ruptured infected pseudoaneurysm; VAC placement left groin less than 50 cm2 on 08/14/[address] Daquan Melton and Dr. Chema Colin. Currently, he reports he is feeling better but has continued discomfort at surgical incisions.
Past Medical History
Past Medical History: Other (CAD, hypertension, diabetes, Crohn's disease, hypercholesteremia, pancreatitis, obstructive sleep apnea, GERD, BPH, glaucoma, former smoker, and seizure disorder)
Past Surgical History: Other (left iliofemoral endarterectomy on 08/04/2024)
Social History
Tobacco: Former Smoker
Allergies / Home Medications
Allergy/AdvReac Type Severity Reaction Status Date / Time
Sulfa (Sulfonamide Allergy Itching Verified 08/04/24 09:49
Antibiotics)
[Sulfa (Sulfonamides)]
�Medication �Instructions �Recorded �Confirmed �Type
atorvastatin 40 mg tablet 40 mg PO DAILY High cholesterol 07/19/21 08/14/24 History
fluticasone propionate 50 2 spray intranasal DAILY Allergies 07/19/21 08/14/24 History
mcg/actuation nasal
spray,suspension
phenytoin sodium extended 100 mg 200 mg PO BID Seizures 07/19/21 08/14/24 History
capsule
pantoprazole 40 mg tablet,delayed 40 mg PO DAILY Gastrointestinal 07/27/21 08/14/24 History
release issue
magnesium 200 mg tablet 400 mg PO BID Electrolyte Repletion 07/10/22 08/14/24 History
metformin 1,000 mg tablet 1,000 mg PO BID Diabetes 07/10/22 08/14/24 History
amlodipine 5 mg tablet 5 mg PO DAILY Blood pressure #1 tab 08/02/22 08/14/24 Rx
lisinopril 20 2 tab PO DAILY Blood pressure #1 08/02/22 08/14/24 Rx
mg-hydrochlorothiazide 12.5 mg tab
tablet
aspirin 81 mg tablet,delayed 81 mg PO DAILY Blood Clot 07/28/24 08/14/24 History
release Prevention/Tx
semaglutide 0.25 mg or 0.5 mg (2 0.5 mg SC QWEEK Diabetes 08/04/24 08/14/24 History
mg/1.5 mL) subcutaneous pen
injector (Ozempic)
docusate sodium 100 mg capsule 100 mg PO BID #20 caps 08/12/24 08/14/24 Rx
insulin regular hum U-500 conc 500 20 unit SC HS Diabetes 08/14/24 08/14/24 History
unit/mL(3 mL) subcut pen (Humulin
R U-500 (Conc) Insulin Kwikpen)
insulin regular hum U-500 conc 500 30 unit SC NOON Diabetes 08/14/24 08/14/24 History
unit/mL(3 mL) subcut pen (Humulin
R U-500 (Conc) Insulin Kwikpen)
insulin regular hum U-500 conc 500 75 unit SC DAILY Diabetes 08/14/24 08/14/24 History
unit/mL(3 mL) subcut pen (Humulin
R U-500 (Conc) Insulin Kwikpen)
oxycodone 5 mg tablet 5 mg PO Q4HPRN PRN severe pain 08/14/24 08/14/24 History
amoxicillin 500 mg capsule 500 mg PO Q8H Infection 08/15/24 08/14/24 History
doxycycline hyclate 100 mg capsule 100 mg PO Q12 Infection 08/15/24 08/14/24 History
Review of Systems
-
History Source: Patient
Constitutional: Reports No Symptoms
EENT: Reports No Symptoms
Respiratory: Reports No Symptoms
Cardiac: Reports No Symptoms
Abdomen/GI: Reports No Symptoms
: Reports No Symptoms
Musculoskeletal: Reports No Symptoms
Skin: Reports Other (on presentation to the ED he reported drainage and swelling at left incision )
Neurological: Reports No Symptoms
Endocrine: Reports No Symptoms
Physical Exam
Vital Signs
Temp Pulse Resp BP Pulse Ox
98.6 F 74 18 131/60 97
08/16/24 08:43 08/16/24 07:45 08/16/24 07:45 08/16/24 07:37 08/16/24 07:45
Lab Results
08/16/24 04:15
08/16/24 04:15
Physical Exam
General: No Apparent Distress and Comfortable
HEENT: Normocephalic, Anicteric and Atraumatic
Respiratory: Non Labored Respirations
Cardiac: Negative JVD
GI: Soft, Non Tender and Non Distended
Musculoskeletal: Edema (BL LE with trace edema )
Skin: Warm, Dry and Other (left wound vac replaced measurements L 11cmx W 5cmx D2cm, CDI and healthy appering tissue, no purulent drainage. ABD and lower left leg surgical incision tanya site CDI with well approximated suture line, dressings
replcaed with ROSMERY )
Neuro: AO x 3
Pulses: Bilateral Dorsalis Pedis: +1 and Bilateral Posterior Tibial: +2
Assessment / Plan
-
Assessment: 74 year old male with pseudoaneurysm at left common femoral artery s/p repair with left external iliac artery to above knee popliteal artery bypass with an 8 mm Propaten graft tunnel through the obturator foramina on 08/14
Plan:
Wound vac changed today, ABD and left leg surgical incision dressing also changed to ROSMERY dressing, all site CDI
Appreciate ID recommendations/guidance for antibiotic therapy
Advance diet
OOB to chair with progression to ambulation as tolerated
PT
Discontinue sim catheter today

Documented by User: LEYLA Grider 08/16/24 11:46
Medical History
-
History of Present Illness:
[2024-08-16 10:43] LABS: Glucose - Point of Care 100 mg/dl (70-99)
[2024-08-16] MEDS: DILAUDID 1 MG IV (10:48)
--- NOTE | 2024-08-16 11:26 | PTCARENOTE ---
med as noted, wound vac changed by vascular team, tolerated. agreeable to advance diet.
[2024-08-16 12:15] LABS: B.E. -3.2 mmol/L; HCO3 20.6 mmol/L (21-28); O2 Saturation % 99.9 % (94-98); PCO2 31 mmHg (35-48); PO2 134 mmHg (83-108); pH 7.43 (7.35-7.45)
[2024-08-16 12:36] LABS: Blood Urea Nitrogen 25 mg/dl (9-20); Carbon Dioxide 21 mmol/L (22-30); Chloride 103 mmol/L (98-107); Estimated Creatinine Clearance 69 ml/min; Glucose 100 mg/dl (70-99); Potassium 3.9 mmol/L (3.5-5.1); Sodium 132 mmol/L (135-145); eGFR > 60.00
[2024-08-16 12:45] LABS: Glucose - Point of Care 108 mg/dl (70-99)
[2024-08-16] MEDS: HUMULIN R U-500 (CONCENTRATED) 20 UNITS SC (13:14)
[2024-08-16 13:24] LABS: Glucose - Point of Care 105 mg/dl (70-99)
--- NOTE | 2024-08-16 13:37 | PTCARENOTE ---
U500 given per order, IV fluids capped. Art line dcd. presently eating lunch, appetite fair.
--- NOTE | 2024-08-16 14:32 | W.PN.HOSP.TC ---
Today's Communication/Plan
-
Assessment / Plan
Assessment / Plan
Physical Exam
NAD, resting comfortably in bed
Scleral anicteric
Moist mucous membranes
No JVD
CTA bilateral
Normal S1-S2 no murmurs
Soft nontender nondistended bowel sounds active
No peripheral pitting edema
incision line appeared clean, nondraining
groin wound open, tanya removed, vascular suregry DERRICK MAN apply black surgi/wound vac foam to area
Moves extremities spontaneously
AAOx3
Assessment and Plan
Septic shock - resolved, off pressors
Surgical site infection/vascular graft infection
-Wound culture - pseudo
--On zosyn and vanc. Can likely dc vanc will discuss this with ID
-Vascular surgery following
-ID following
HyperK resolved
SUZANNE improving
Hyponatgremia - unchanged
Metabolic acidosis - improving
HLD
-Continue statin
GERD
-Continue PPI
Anticipated Discharge: > 48 hours
Subjective/Interval History
-
Date of Service: August 16, 2024
seen and examined. no new complaints. no acute overnight events
Objective Data
-
Labs:
Laboratory Results
08/16/24 08/16/24
04:15 12:03
WBC 14.0 H
Hgb 8.6 L
Hct 24.3 L
Plt Count 249
HCO3 20.6 L
Sodium 132 L 132 L
Potassium 3.9 3.9
Chloride 103 103
Carbon Dioxide 14 L* 21 L
BUN 31 H 25 H
Creatinine 1.3 1.2
Glucose 130 H 100 H
Calcium 7.4 L 7.0 L
Total Bilirubin 1.0 D
AST 64 H
ALT 30
Alkaline Phosphatase 66
Vital Signs:
Vital Signs
Temp Pulse Resp BP Pulse Ox
99.5 F 85 23 131/60 94
08/16/24 11:56 08/16/24 12:30 08/16/24 12:30 08/16/24 07:37 08/16/24 12:30
I&O
08/15/24 08/16/24 08/17/24
06:59 06:59 06:59
Intake Total 3915.6 / 4060.6 1435.6 / 1435.6
Output Total 600 / 600 1455 / 1505 540 / 540
Balance -600 / -430.5 2460.6 / 2555.6 895.6 / 895.6
--- NOTE | 2024-08-16 14:55 | CM ---
CM following re: discharge planning.
Reviewed pt's chavez, met with pt.
Pt is well known to this CM from previous admission, lives alone 2SH, has supportive brother deja who lives in [place] and visiting him often.
Pt expressed his desire to return back to [facility] for a short term rehab with a further plan to return back to his house with brother's support.
CM will male a referral to [facility] after PT/OT evaluations.
D/C plan: [facility] when medically stable.
CM will follow with discharge plan updates as hospitalization progresses
--- NOTE | 2024-08-16 16:55 | PTCARENOTE ---
complete CHG cloth bath, gown changed, turned. sacral foam removed from sacrum, non-adhering. ordered and awaiting dinner.
[2024-08-16 17:20] LABS: Glucose - Point of Care 154 mg/dl (70-99)
--- NOTE | 2024-08-16 19:15 | PTCARENOTE ---
Received patient at 1900. Pt. currently in bed. Awake, alert, and oriented. C/o pain in left thigh and groin. PRN medication given, see DEC. Heart rhythm sinus. Blood pressure normotensive. Vascular checks are normal. Pulses present with doppler.
Currently on room air. PO diet ordered, good appetite. Perez catheter in place, draining without issue. Skin as documented. Discussed plan of care with patient. Vital signs stable at this time.
[2024-08-16 20:08] LABS: Glucose - Point of Care 273 mg/dl (70-99)
[2024-08-16] MEDS: HUMULIN R U-500 (CONCENTRATED) 30 UNITS SC (20:36)
[2024-08-16 22:53] LABS: Glucose - Point of Care 250 mg/dl (70-99)
[2024-08-17] VITALS (13 sets, daily range): BP systolic 92–136; BP diastolic 47–62; PULSE 92; O2SAT 96; BMI 39.1
[2024-08-17] MEDS: TYLENOL 650 MG PO ×6 (00:24→23:29)
[2024-08-17] MEDS: ROXICODONE 5 MG PO ×5 (00:25→21:43)
[2024-08-17] MEDS: ZOSYN 50 IV ×2 (00:25→06:03)
--- NOTE | 2024-08-17 01:00 | PTCARENOTE ---
Pts physical assessment preformed at this time,pt awake reported pain to left groin,pt medicated with Roxicodone and Tylenol as per pts request.SR court recording monitor,Afebrile.DP pulse check with doppler +,pt has large wound vac intact left groin,ROSMERY
drsg intact to left thigh,ROSMERY drsg intact to left lower abd.Sleeping periodically throughout the night,watching TV.
[2024-08-17 01:51] LABS: Glucose - Point of Care 192 mg/dl (70-99)
[2024-08-17 05:06] LABS: Hematocrit 22.2 % (39.0-52.0); Mean Corpuscular Hgb 31.9 pg (27.0-31.0); Mean Corpuscular Volume 88.4 fL (80.0-94.0); Mean Platelet Volume 8.6 fL (7.4-10.4); Platelet Count 257 10^3/uL (130-400); Red Blood Cell Count 2.51 10^6/uL (4.70-6.10); Red Cell Dist. Width 15.4 % (11.5-14.5); White Blood Cell Count 9.4 10^3/uL (4.8-10.8)
[2024-08-17 05:31] LABS: ALT (SGPT) 44 U/L (0-50); AST (SGOT) 100 U/L (17-59); Albumin 2.2 g/dl (3.5-5.0); Alkaline Phosphatase 79 U/L (38-126); Blood Urea Nitrogen 21 mg/dl (9-20); Calcium 7.4 mg/dl (8.4-10.2); Carbon Dioxide 25 mmol/L (22-30); Chloride 101 mmol/L (98-107); Estimated Creatinine Clearance 69 ml/min; Glucose 159 mg/dl (70-99); Potassium 4.1 mmol/L (3.5-5.1); Sodium 133 mmol/L (135-145); Total Bilirubin 0.7 mg/dl (0.2-1.3); Total Protein 4.3 g/dl (6.3-8.2); eGFR > 60.00
[2024-08-17 07:57] LABS: Glucose - Point of Care 206 mg/dl (70-99)
[2024-08-17] MEDS: LIPITOR 40 MG PO (08:18)
[2024-08-17] MEDS: DILANTIN 200 MG PO ×2 (08:18→20:21)
[2024-08-17] MEDS: HEPARIN 5000 UNITS SC ×3 (08:18→23:29)
[2024-08-17] MEDS: PROTONIX 40 MG PO (08:18)
[2024-08-17] MEDS: COLACE 100 MG PO (08:18)
[2024-08-17] MEDS: ASPIR LOW (ENTERIC COATED) 81 MG PO (08:18)
[2024-08-17] MEDS: HUMULIN R U-500 (CONCENTRATED) 40 UNITS SC (08:19)
--- NOTE | 2024-08-17 08:19 | W.PN.VS ---
Addendum entered and electronically signed by Arnaldo Perez III, MD 08/17/24 10:29:
This patient was seen and examined with LYELA Grider. I agree with the history and physical exam as well as the assessment and plan. I have the following additions:
Slow steady progress
Out of bed with PT
Continue VAC and phil
Antibiotics
Signed:
Arnaldo Perez III, MD
[facility] Vascular Surgery
[phone] (cell)
Original Note:
Today's Communication / Plan
-
Seen and assessed with Dr. Perez
Assessment/Plan
-
doing well post obturator bypass and pseudoaneurysm ligation
- Antibiotics per ID
- Cultures pending
- Out of bed/ambulate
- PT/OT
- Continue wound VAC, next change tomorrow
Subjective Data
-
Date of Service: August 17, 2024
Objective Data
-
Vital Signs
Temp Pulse Resp BP Pulse Ox
99 F 71 17 126/53 96
08/17/24 06:00 08/17/24 02:30 08/17/24 02:30 08/17/24 02:00 08/17/24 02:30
Intake and Output
08/16/24 08/17/24 08/18/24
06:59 06:59 06:59
Intake Total 3915.6 / 4060.6 2385.6 / 2385.6
Output Total 1455 / 1505 1530 / 1530
Balance 2460.6 / 2555.6 855.6 / 855.6
Intake:
Oral fluids 120 / 120 1330 / 1330
IV fluids (Total) 3395.6 / 3540.6 605.6 / 605.6
Nss 1,000 ml @ 125 mls/hr IV . 3000 / 3125 125 / 125
Q8H ROSMERY Rx#:[id number]
Sterile Water For Injection 425 / 425
1000 ml 1,000 ml @ 50 mls/hr IV
.Q23H ROSMERY with Sodium
Bicarbonate 150 Meq Rx#:
[id number]
fent 2.5 / 2.5
insulin 142.6 / 147.6 25.6 / 25.6
levo 232.5 / 247.5 30.0 / 30.0
precedex 18 / 18
IV piggybacks 400 / 400 450 / 450
Output:
Urine, Perez 1455 / 1505 1430 / 1430
Urine, Voided 100 / 100
Lab Results
08/17/24 04:27
08/17/24 04:27
Calcium 7.4 mg/dl (8.4-10.2) L 08/17/24 04:27
Phosphorus 3.4 mg/dl (2.5-4.5) 08/15/24 05:27
Magnesium 2.4 mg/dl (1.6-2.3) H 08/16/24 04:15
Total Bilirubin 0.7 mg/dl (0.2-1.3) 08/17/24 04:27
AST 100 U/L (17-59) H 08/17/24 04:27
ALT 44 U/L (0-50) 08/17/24 04:27
Alkaline Phosphatase 79 U/L (38-126) 08/17/24 04:27
Total Protein 4.3 g/dl (6.3-8.2) L 08/17/24 04:27
Albumin 2.2 g/dl (3.5-5.0) L 08/17/24 04:27
--- NOTE | 2024-08-17 08:26 | W.PN.INTV ---
Today's Communication / Plan
Recommendations
ABx as per ID
Continue U-500 SQ insulin
Wound VAC as per surgery
Pain control
Trend WBC
Incentive spirometry
Increase activity as able
Patient stable for downgrade out of ICU to telemetry. [employer]/Pulmonary service will now sign off. Please reconsult if there are any additional questions/concerns, or if patient's respiratory status deteriorates.
Assessment
-
74-year-old male with a history of hypertension, diabetes, Crohn's, hyperlipidemia, pancreatitis, LEONEL, GERD, BPH, former smoker as well as seizure disorder with PAD status post iliofemoral endarterectomy 10 days prior to admission and admitted with
infected rupture requiring emergent OR-clock and watch hands mounter consulted for postoperative ventilator/critical care management 08/15/2024.
Impression:
Sepsis without shock due to infected L-groin pseudoaneurysm/SSI
PAD status post left iliofemoral endarterectomy 10 days prior to admission with subsequent infection/rupture
s/p left external iliac artery to above-knee popliteal artery obturator bypass, white debridement left groin, excision infected pseudoaneurysm and bovine pericardial patch with pulse lavage irrigation-Dr. Colin 08/15/2024
Bacteremia due to Enterobacter species
Leukocytosis - now resolved
Anemia
Hyponatremia
Hyperglycemia
Metabolic acidosis with increased anion gap - resolved
Hypoalbuminemia
Conditions present prior to admission:
Hypertension.
Hyperlipidemia.
Diabetes.
CAD.
Crohn's.
Pancreatitis.
LEONEL.
GERD.
BPH.
Glaucoma.
Former smoker.
Obesity.
Seizure disorder on phenytoin
PAD-left iliofemoral endarterectomy 07/2024..
Plan
Admitted patient to medical intensive care unit for persistent hypotension despite fluid resuscitation requiring pressors
He was extubated on 08/15 and now on room air as of 08/16
Nebulizers if needed-currently not bronchospastic
Left groin superficial culture now growing Pseudomonas spp - follow-up sensitivities and ID on board for antibiotic management
Empiric antibiotics-vancomycin and Zosyn initiated on 08/15; s/p Clinda on 08/14
Trend leukocytosis and monitor fever curve
Pain control
Vascular surgery following-correspondence reviewed
Operative records reviewed
Follow hemoglobin
Transfuse if needed-received significant transfusions intraoperatively after ruptured
Has received 4 units PRBC since admission with last transfusion on 08/15/2024
Monitor blood sugar; now weaned off insulin gtt and back on U-500 SQ insulin
Diabetic TOW FEEDER on board for assistance
HbA1C: 7.1 on 08/05/2024
Patient was on a bicarb drip --> blood gas checked and pH is 7.43. Stopped bicarb drip now and continue to monitor serum bicarbonate level and pH
Diet as per surgery - now on ADA
Continue phenytoin (home med)
DVT prophylaxis-on heparin SQ q8hr
Early nutrition
Early mobilization/bedside range of motion
Details about his obstructive sleep apnea unknown-May benefit from outpatient pulmonary/sleep disorders follow-up
Patient stable for downgrade out of ICU to telemetry. [employer]/Pulmonary service will now sign off. Thank you for allowing us to be involved in the care of this patient. Please reconsult if there are any additional questions/concerns, or if
patient's respiratory status deteriorates.
Of note, patient was seen and evaluated at bedside on 08/17/2024
Diagnostic data:
Chest x-ray 07/30/2024-NAD
Chest x-ray 08/15/2024-endotracheal tube in good position, mildly decreased bilateral lung volumes, subsegmental atelectasis
CT abdomen 08/14/24-4 x 6 cm pseudoaneurysm, gas containing soft tissue collection anterior to the pseudoaneurysm fatty infiltration of the liver
Total time spent today was 42 minutes for this encounter. Time includes reviewing laboratory test/imaging results, reviewing pertinent medical records, obtaining and reviewing medical history, performing an appropriate exam, ordering medications,
tests and procedures. Time also includes documentation of this encounter, coordinating patient care and communicating with other healthcare professionals. Total time does not include separately billed tests performed on this date of service.
Subjective Dataa
Subjective Data
Date of Service:
Date of Service: August 17, 2024
Chief Complaint: [employer] Follow Up
Subjective:
Patient seen and evaluated morning. No acute support overnight. Still has wound VAC in left groin. On room air breathing comfortably. HR 84 and BP 116/53. He denies SOb, CP, HOLT, abd pain, N/V/f/c.
Review of Systems
General: Other (Negative unless mentioned above)
Objective Data
Data Reviewed
Vital Signs / I&O / Oxygen:
Vital Signs
Temp Pulse Resp BP Pulse Ox
97.8 F 71 17 126/53 96
08/17/24 08:25 08/17/24 02:30 08/17/24 02:30 08/17/24 02:00 08/17/24 02:30
Intake and Output
08/16/24 08/17/24 08/18/24
06:59 06:59 06:59
Intake Total 3915.6 / 4060.6 2385.6 / 2385.6
Output Total 1455 / 1505 1530 / 1630 225 / 225
Balance 2460.6 / 2555.6 855.6 / 755.6 -225 / -225
SaO2 [CPAP] 100
SaO2 96
Nasal Cannula flow liters per 95
minute
Physical Exam
General: Respiratory Distress (negative), Comfortable, Pain (left groin site (improved)), Chills (negative) and Sweats (negative)
HEENT: Normocephalic, Anicteric and Moist Mucous Membranes
Cardiovascular: S1-S2, Murmur (negative) and Peripheral Edema (Trace left lower extremity pitting edema, no edema seen on the right lower extremity)
Respiratory: Clear, Wheeze (negative), Crackles (negative), Rhonchi (negative) and Non-Labored Respirations
GI: Soft, Distended (Abdominal obesity), Non Tender and Normal Bowel Sounds
Neurology: AO x 3 and Tremors (negative)
Skin: Warm, Dry, Cyanosis (negative), Jaundice (negative) and Other (Excoriation seen in the lower extremities bilaterally with some mild erythema from stasis dermatitis)
Labs/Micro/Reports
Lab Data
08/17/24 04:27
08/17/24 04:27
Laboratory Results
08/16/24
12:03
pH 7.43
pCO2 31 L
pO2 134 H
HCO3 20.6 L
O2 Delivery Level
Microbiology
08/15/24 01:44 Groin - Left Wound Culture - Preliminary
Pseudomonas species
08/15/24 01:44 Groin - Left Gram Stain - Preliminary
08/14/24 18:43 Blood/Venous Blood Culture - Preliminary
Positive culture in progress
08/14/24 18:43 Blood/Venous Gram Stain - Preliminary
08/14/24 18:43 Blood/Venous Blood Culture - Preliminary
No Growth in 48 hours- Final report to follow
08/15/24 01:44 Groin - Left Anaerobic Culture - Preliminary
Culture pending. Anaerobic cultures are examined after 3
days incubation. Additional information to follow.
08/15/24 08:57 Nose MRSA Screen - Final
No Methicillin Resistant Staphylococcus aureus isolated.
--- NOTE | 2024-08-17 08:48 | PN.DE.MGMTRT ---
Insulin Management
- -
08/17/2024: Diabetes management Consult Follow up:
74 year old male readmitted on 08/14 for infected left femoral artery ruptured pseudoaneurysm after long hospitalization 07/30-08/12 s/p Left femoral endarterectomy. PMH: CAD, LEONEL, GERD, HTN, PAD, Crohn's disease, Hypercholesterolemia, H/O
pancreatitis, BPH, Glaucoma, Former smoker, Seizure disorder and T2DM. Pt underwent emergent left external iliac artery to above-knee popliteal artery obturator bypass and debridement with wound vac placement.
Recent A1C 7.1%, follows Endo Dr. Rogers Diaz at [place]. Uses CGM [employer] 3.
Pt was readmitted with Hyperglycemia. He reports that he was not receiving his regular doses of U-500 while at [facility] because the facility did not have that type of insulin in stock, instead he was receiving NovoLog AC and Lantus @HS, which he
believes contributed to uncontrolled blood sugars.
Prior to discharge last week, his U-500 doses were adjusted due to reduce CHO intake. Pt reports that he has no appetite but is willing to try ordering lunch now.
He is awake, A/O x3, resting in bed, pleasant, offers no complaints, able to discuss diabetes mgt.
POD #2, doing well.
08/16 Transitioned off insulin drip. Received U-500 20 units @ ~ noon. Received 30 units U-500 @ HS.
08/17 Fasting glucose 159. Doses of U-500 have been reduced 40 units in AM @ breakfast, 20 units @ lunch, 30 units @ HS and moderate corrective insulin with meals. Pre lunch glucose 322. Will increase AM U-500 dose to 65 units.
Discussed with pt and encouraged him to add carbs to his meals as permissible with his 2000 tanmay diet.
Will follow and make further adjustments if needed
Diabetes History
- -
Type of Diabetes: 2 requiring insulin
Pre-Admission Diabetes Regimen
08/16/24 08/17/24
12:03 04:27
Creatinine 1.2 1.2
Insulin Pump Settings
IP Diabetes Regimen
08/16/24 08/16/24 08/16/24
10:31 12:03 12:34
Glucose 100 H
POC Glucose 100 H 108 H
08/16/24 08/16/24 08/16/24
13:12 17:07 19:57
Glucose
POC Glucose 105 H 154 H 273 H
08/16/24 08/17/24 08/17/24
22:42 01:39 04:27
Glucose 159 H
POC Glucose 250 H 192 H
08/17/24
07:46
Glucose
POC Glucose 206 H
Meal type: Dinner
Meal type: Lunch
Amount consumed: 100%
Amount consumed: 90%
Patient Education
--- NOTE | 2024-08-17 08:57 | W.PN.ID1 ---
Date of Service
Date of Service: August 17, 2024
Today's Communication
- c/w zosyn dose adjusted, stop vancomycin
Assessment / Plan
Surgical Site Infection/vascular graft infection
S/p debridement and excision of infected pseudoaneurysm and bovine pericardial patch
Seizure Disorder - on phenytoin
Class III obesity on ozempic
- MRSA nasal screen negative
- aerobic and anaerobic cultures sent from the OR - Pseudomonas thus far; no gram positives on the gram stain
- blood cultures x2 in progress - no growth to date
- c/w zosyn dose adjusted, stop vancomycin
follow clinically
Chief Complaint
-: Other (infected pseudoanuerysm and cellulitis)
Subjective / Review of Systems
remains afebrile
weaned off of pressors early yesterday
no events overnight
wound vac change tomorrow
Vital Signs / Physical Exam
Vital Signs
Vital Signs
Temp Pulse Resp BP Pulse Ox
97.8 F 71 17 126/53 96
08/17/24 08:25 08/17/24 02:30 08/17/24 02:30 08/17/24 02:00 08/17/24 02:30
Physical Exam
Constitutional: No Acute Distress and Non-toxic
Cardiovascular: Regular Rate
Pulmonary: Symmetric
Gastrointestinal: Non Distended
Skin: Dry; Negative Rash or Jaundice
Neurological: Awake
Objective Data
Lab Data
Lab Results
08/17/24 04:27
08/17/24 04:27
PT 16.4 Sec (11.4-14.6) H 08/15/24 05:27
INR 1.34 08/15/24 05:27
APTT 31.6 Sec (23.4-35.0) 08/15/24 05:27
Estimated Creat Clear 69 ml/min 08/17/24 04:27
Lactic Acid Cancelled 08/14/24 20:45
Total Bilirubin 0.7 mg/dl (0.2-1.3) 08/17/24 04:27
AST 100 U/L (17-59) H 08/17/24 04:27
ALT 44 U/L (0-50) 08/17/24 04:27
Alkaline Phosphatase 79 U/L (38-126) 08/17/24 04:27
Most recent labs reviewed.
Micro Results:
08/14/24 18:43 Blood Culture - Preliminary
Blood/Venous Positive culture in progress
Gram Stain - Preliminary
08/14/24 18:43 Blood Culture - Preliminary
Blood/Venous No Growth in 48 hours- Final report to follow
08/15/24 01:44 Wound Culture - Preliminary
Groin - Left Pseudomonas species
Gram Stain - Preliminary
08/15/24 01:44 Anaerobic Culture - Preliminary
Groin - Left Culture pending. Anaerobic cultures are examined after 3
days incubation. Additional information to follow.
08/15/24 08:57 MRSA Screen - Final
Nose No Methicillin Resistant Staphylococcus aureus isolated.
--- NOTE | 2024-08-17 10:30 | PTCARENOTE ---
Received pt this am with assessment as charted. VSS. Pt medicated for l groin pain as charted. Perez removed prior to getting up to work with pt. Tolerated well. Ambulated using walker. Left positioned in chair with call cardoza in place.
Otherwise please refer to worklist.
[2024-08-17 12:07] LABS: Glucose - Point of Care 322 mg/dl (70-99)
[2024-08-17] MEDS: ZOSYN 100 IV ×3 (12:28→23:28)
[2024-08-17] MEDS: HUMULIN R U-500 (CONCENTRATED) 20 UNITS SC (12:28)
[2024-08-17] MEDS: SENOKOT-S 1 TABLET PO ×2 (12:28→20:21)
--- NOTE | 2024-08-17 13:30 | PTCARENOTE ---
Within an hour of receiving sennokot, pt assisted to bathroom. Only passed gas, no bm. Missed toilet for urine while on toilet. Pt then assisted back to bed.
[2024-08-17] MEDS: TYLENOL PO (13:40)
[2024-08-17] MEDS: NOVOLOG FLEXPEN-MODERATE RESISTANCE 7 UNITS SC ×2 (13:40→18:16)
--- NOTE | 2024-08-17 13:48 | CM ---
CM following re: discharge planning.
Reviewed pt's chart, met with pt.
PT and OT evaluations noted - SNF level of care recommended. Pt is aware, expressed his agreement and pt requested [facility]. A referral to [facility] made. Awaiting for determination.
D/C plan: [facility] for a short term rehab.
CM will follow to assist the pt with discharge to [facility].
--- NOTE | 2024-08-17 14:25 | W.PN.HOSP.TC ---
Today's Communication/Plan
-
Assessment / Plan
Assessment / Plan
Physical Exam
NAD, resting comfortably in bed
Scleral anicteric
Moist mucous membranes
No JVD
CTA bilateral
Normal S1-S2 no murmurs
Soft nontender nondistended bowel sounds active
No peripheral pitting edema
incision line appeared clean, nondraining
groin wound open, tanya removed, vascular suregry PILLOWCASE CUTTER apply black surgi/wound vac foam to area
Moves extremities spontaneously
AAOx3
Assessment and Plan
Septic shock - resolved, off pressors
Surgical site infection/vascular graft infection
-Wound culture - pseudo
--Continue pip-tazo. stop vanc
-Vascular surgery following
-wound vac on, cghanges per vascular
-ID following
HyperK resolved
SUZANNE improving
Hyponatgremia - unchanged
Metabolic acidosis - improving
HLD
-Continue statin
GERD
-Continue PPI
Downgrade to tele
PT/OT
Anticipated Discharge: Within 24 hours
Subjective/Interval History
-
Date of Service: August 17, 2024
Seen and examined. No new complaints. No acute overnight events.
Feeling significantly better
Objective Data
-
Labs:
Laboratory Results
08/17/24
04:27
WBC 9.4
Hgb 8.0 L
Hct 22.2 L
Plt Count 257
Sodium 133 L
Potassium 4.1
Chloride 101
Carbon Dioxide 25
BUN 21 H
Creatinine 1.2
Glucose 159 H
Calcium 7.4 L
Total Bilirubin 0.7
AST 100 H
ALT 44
Alkaline Phosphatase 79
Vital Signs:
Vital Signs
Temp Pulse Resp BP Pulse Ox
98.2 F 78 22 116/53 95
08/17/24 12:08 08/17/24 08:00 08/17/24 08:00 08/17/24 08:00 08/17/24 10:55
I&O
08/16/24 08/17/24 08/18/24
06:59 06:59 06:59
Intake Total 3915.6 / 4060.6 2385.6 / 2385.6 580 / 580
Output Total 1455 / 1505 1530 / 1630 350 / 350
Balance 2460.6 / 2555.6 855.6 / 755.6 230 / 230
[2024-08-17 16:59] LABS: Glucose - Point of Care 404 mg/dl (70-99)
[2024-08-17 17:53] LABS: Glucose 342 mg/dl (70-99)
[2024-08-17 21:32] LABS: Glucose - Point of Care 415 mg/dl (70-99)
[2024-08-17 22:09] LABS: Glucose 382 mg/dl (70-99)
[2024-08-17] MEDS: HUMULIN R U-500 (CONCENTRATED) 30 UNITS SC (22:27)
[2024-08-17] MEDS: NOVOLOG FLEXPEN 7 UNITS SC (22:31)
[2024-08-18] VITALS (7 sets, daily range): BP systolic 116–156; BP diastolic 57–73; PULSE 87; O2SAT 95
[2024-08-18 02:03] LABS: Glucose - Point of Care 390 mg/dl (70-99)
[2024-08-18] MEDS: NOVOLOG FLEXPEN 10 UNITS SC (02:24)
[2024-08-18 04:16] LABS: Glucose - Point of Care 346 mg/dl (70-99)
--- NOTE | 2024-08-18 04:32 | W.PN.UPDATE ---
Update Note
Progress Note Update
Patient receive additional 7U aspart coverage for BS 382 and then another 10U Aspart for BS 390 over night.
[2024-08-18] MEDS: ZOSYN 100 IV (05:10)
--- NOTE | 2024-08-18 07:32 | PN.DE.MGMTRT ---
Insulin Management
- -
08/18/2024: Diabetes management Consult Follow up:
74 year old male readmitted on 08/14 for infected left femoral artery ruptured pseudoaneurysm after long hospitalization 07/30-08/12 s/p Left femoral endarterectomy. PMH: CAD, LEONEL, GERD, HTN, PAD, Crohn's disease, Hypercholesterolemia, H/O
pancreatitis, BPH, Glaucoma, Former smoker, Seizure disorder and T2DM. Pt underwent emergent left external iliac artery to above-knee popliteal artery obturator bypass and debridement with wound vac placement.
Recent A1C 7.1%, follows Endo Dr. Rogers Diaz at [place]. Uses CGM [employer] 3.
Pt was readmitted with Hyperglycemia. He reports that he was not receiving his regular doses of U-500 while at [facility] because the facility did not have that type of insulin in stock, instead he was receiving NovoLog AC and Lantus @HS, which he
believes contributed to uncontrolled blood sugars.
Prior to discharge last week, his U-500 doses were adjusted due to reduce CHO intake. Pt reports that he has no appetite but is willing to try ordering lunch now.
He is awake, A/O x3, resting in bed, pleasant, offers no complaints, able to discuss diabetes mgt.
POD #3, doing well.
08/16 Transitioned off insulin drip. Received U-500 20 units @ ~ noon. Received 30 units U-500 @ HS.
08/17 Fasting glucose 159. Doses of U-500 have been reduced 40 units in AM @ breakfast, 20 units @ lunch, 30 units @ HS and moderate corrective insulin with meals. Pre lunch glucose 322, pre dinner 415 and HS 390 (patient received novolog
corrective insulin).
08/18 Will increase AM U-500 dose to 70 units, lunch dose to 30 units and hs dose to 30 units
Will follow and make further adjustments if needed
Diabetes History
- -
Type of Diabetes: 2 requiring insulin
Pre-Admission Diabetes Regimen
Insulin Pump Settings
IP Diabetes Regimen
08/17/24 08/17/24 08/17/24
07:46 11:56 16:55
Glucose
POC Glucose 206 H 322 H 404 H
08/17/24 08/17/24 08/17/24
17:19 21:31 21:44
Glucose 342 H 382 H
POC Glucose 415 H
08/18/24 08/18/24
02:01 04:15
Glucose
POC Glucose 390 H 346 H
Meal type: Breakfast
Amount consumed: 100%
Patient Education
[2024-08-18 08:07] LABS: Hematocrit 23.9 % (39.0-52.0); Hemoglobin 8.2 g/dL (13.0-18.0); Mean Corp Hgb Conc. 34.3 g/dL (33.0-37.0); Mean Corpuscular Hgb 29.7 pg (27.0-31.0); Mean Corpuscular Volume 86.6 fL (80.0-94.0); Mean Platelet Volume 8.4 fL (7.4-10.4); Platelet Count 341 10^3/uL (130-400); Red Blood Cell Count 2.76 10^6/uL (4.70-6.10); Red Cell Dist. Width 15.2 % (11.5-14.5); White Blood Cell Count 8.6 10^3/uL (4.8-10.8)
[2024-08-18 08:09] LABS: ALT (SGPT) 45 U/L (0-50); AST (SGOT) 76 U/L (17-59); Albumin 2.6 g/dl (3.5-5.0); Alkaline Phosphatase 99 U/L (38-126); Blood Urea Nitrogen 20 mg/dl (9-20); Calcium 7.7 mg/dl (8.4-10.2); Carbon Dioxide 25 mmol/L (22-30); Chloride 99 mmol/L (98-107); Estimated Creatinine Clearance 67 ml/min; Glucose 269 mg/dl (70-99); Magnesium 2.3 mg/dl (1.6-2.3); Phosphorus 2.4 mg/dl (2.5-4.5); Potassium 4.5 mmol/L (3.5-5.1); Sodium 133 mmol/L (135-145); Total Bilirubin 0.9 mg/dl (0.2-1.3); Total Protein 4.9 g/dl (6.3-8.2); eGFR > 60.00
[2024-08-18 08:20] LABS: Glucose - Point of Care 306 mg/dl (70-99)
[2024-08-18] MEDS: DILAUDID 0.5 MG IV (08:32)
[2024-08-18] MEDS: PROTONIX 40 MG PO (09:35)
[2024-08-18] MEDS: DILANTIN 200 MG PO ×2 (09:35→19:51)
[2024-08-18] MEDS: LIPITOR 40 MG PO (09:35)
[2024-08-18] MEDS: HEPARIN 5000 UNITS SC ×3 (09:35→23:59)
[2024-08-18] MEDS: SENOKOT-S 1 TABLET PO ×2 (09:35→19:51)
[2024-08-18] MEDS: ASPIR LOW (ENTERIC COATED) 81 MG PO (09:35)
[2024-08-18] MEDS: NOVOLOG FLEXPEN-MODERATE RESISTANCE 7 UNITS SC ×2 (09:38→13:32)
[2024-08-18] MEDS: HUMULIN R U-500 (CONCENTRATED) 70 UNITS SC (09:39)
--- NOTE | 2024-08-18 09:40 | WOUNDNOTE ---
SACRAL/COCCYX CREASE (MR#[id number]; : 50)
--- NOTE | 2024-08-18 09:49 | W.PN.VS ---
Addendum entered and electronically signed by Chema Colin MD 08/18/24 11:36:
Seen and examined with MELIA Schmitt and MELIA Mcleod. Agree with findings as noted below. Abdomen soft, nondistended, nontender. Left lower quadrant and left thigh dressings clean dry and intact ([place] dressings). Left groin VAC in place. Good graft
function with palpable DP pulse on the foot. Foot is warm. Plan/as discussed and noted below.
Original Note:
Today's Communication / Plan
-
Seen and assessed with Dr. Colin
Assessment/Plan
-
doing well post obturator bypass and pseudoaneurysm ligation
- Antibiotics per ID, will require long-term antibiotics and PICC line
- Cultures pending
- Out of bed/ambulate
- PT/OT
- Continue wound VAC
- Plan for SNF/[place] run, case management following
Subjective Data
-
Date of Service: August 18, 2024
Patient seen at bedside this a.m. with Dr. Colin. Patient offers no complaints at this time. No events overnight. VAC intact with no leak
Objective Data
-
Vital Signs
Temp Pulse Resp BP Pulse Ox
97.8 F 78 16 156/72 95
08/18/24 07:50 08/18/24 07:50 08/18/24 07:50 08/18/24 07:50 08/18/24 07:50
Intake and Output
08/17/24 08/18/24 08/19/24
06:59 06:59 06:59
Intake Total 2385.6 / 2385.6 1220 / 1220
Output Total 1530 / 1630 1885 / 1885 325 / 325
Balance 855.6 / 755.6 -665 / -665 -325 / -325
Intake:
Oral fluids 1330 / 1330 920 / 920
IV fluids (Total) 605.6 / 605.6 0 / 0
Nss 1,000 ml @ 125 mls/hr IV . 125 / 125
Q8H ROSMERY Rx#:[id number]
Sterile Water For Injection 425 / 425
1000 ml 1,000 ml @ 50 mls/hr IV
.Q23H ROSMERY with Sodium
Bicarbonate 150 Meq Rx#:
[id number]
insulin 25.6 / 25.6
levo 30.0 / 30.0
IV piggybacks 450 / 450 300 / 300
Output:
Urine, Perez 1430 / 1530 350 / 350
Urine, Voided 100 / 100 1535 / 1535 325 / 325
Other:
Number of approximated MODERATE 1
amounts of urine
How many times incontinent 2
SATURATED amount urine
Lab Results
08/18/24 07:00
08/18/24 07:00
Calcium 7.7 mg/dl (8.4-10.2) L 08/18/24 07:00
Phosphorus 2.4 mg/dl (2.5-4.5) L 08/18/24 07:00
Magnesium 2.3 mg/dl (1.6-2.3) 08/18/24 07:00
Total Bilirubin 0.9 mg/dl (0.2-1.3) 08/18/24 07:00
AST 76 U/L (17-59) H 08/18/24 07:00
ALT 45 U/L (0-50) 08/18/24 07:00
Alkaline Phosphatase 99 U/L (38-126) 08/18/24 07:00
Total Protein 4.9 g/dl (6.3-8.2) L 08/18/24 07:00
Albumin 2.6 g/dl (3.5-5.0) L 08/18/24 07:00
Physical Exam
-
AAOx3
No tachypnea on room air
No tachycardia
Abdomen soft
Abdominal tanya and left thigh tanya well-approximated no drainage noted
VAC removed at bedside, wound bed clean with granulation tissue, see wound care notes for images
VAC and picos reapplied
Bilateral feet warm
[2024-08-18] MEDS: ROXICODONE 5 MG PO ×4 (09:55→23:59)
--- NOTE | 2024-08-18 10:41 | WOUNDNOTE ---
WO RN Note: Vascular POWER NUT RUNNER OPERATOR Henna and Elizabeth changed patient's L groin vac this am. Patient has 2 small linear pink dermal openings on his sacral/coccyx crease r/t moisture. Calazime ointment given. Patient turned to L semi side lying position with
foam wedge. Patient instructed pressure injury prevention measures. He is able to reposition slowly in bed. Heels off bed with pillows. Skin on heels intact. t/c SPD and ordered a bariatric air chair cushion. Discussed with CHANTALE Perez. [place] texted
CM Rosita Dykes re: patient will need a wound vac at SNF/rehab, L groin wound [id number], use black foam, pump setting 125mmhg, change q 48-72hrs. Next vac change due Friday. CHANTALE Johnson stated his ROSMERY abdominal and thigh incisional dressings can come
off on Friday.
--- NOTE | 2024-08-18 10:56 | CM ---
Addendum entered by Maryam Dykes RN 08/18/24 15:56:
IMM reviewed.
Original Note:
Reviewed the chart notes. CM spoke with [facility] [employer] Pl[employer]board with [facility]. Reviewing clinicals. Sent wound vac information via [facility]. CM continues to be available to patient/family and is monitoring medical plan for needs at discharge.
Plan: Discharge to SNF/rehab once bed secured. No precert required.
--- NOTE | 2024-08-18 12:45 | W.PN.HOSP.TC ---
Today's Communication/Plan
-
Assessment / Plan
Assessment / Plan
Physical Exam
NAD, resting comfortably in bed
Scleral anicteric
Moist mucous membranes
No JVD
CTA bilateral
Normal S1-S2 no murmurs
Soft nontender nondistended bowel sounds active
No peripheral pitting edema
incision line appeared clean, nondraining
wounds are dressed appear clean, vac on
Moves extremities spontaneously
AAOx3
Assessment and Plan
Septic shock - resolved, off pressors
Surgical site infection/vascular graft infection
-Wound culture - pseudo
--Continue pip-tazo. stop vanc
--follow up sensitivities if able to transition to po
-Vascular surgery following
-wound vac on, changes per vascular
-ID following
HyperK resolved
SUZANNE improving
Hyponatgremia - unchanged
Metabolic acidosis - improving
HLD
-Continue statin
GERD
-Continue PPI
Downgrade to tele
PT/OT
Anticipated Discharge: 24 - 48 hours
Subjective/Interval History
-
Date of Service: August 18, 2024
seen and examined. no new compalints. no acute ovenright events
feeling better.
states first night able to sleep
has not had a bm. already on miralax and senna, does not want anything more.
asking to work with pt/ot
Objective Data
-
Labs:
Laboratory Results
08/18/24
07:00
WBC 8.6
Hgb 8.2 L
Hct 23.9 L
Plt Count 341 D
Sodium 133 L
Potassium 4.5
Chloride 99
Carbon Dioxide 25
BUN 20
Creatinine 1.2
Glucose 269 H
Calcium 7.7 L
Total Bilirubin 0.9
AST 76 H
ALT 45
Alkaline Phosphatase 99
Vital Signs:
Vital Signs
Temp Pulse Resp BP Pulse Ox
97.8 F 78 16 156/72 95
08/18/24 07:50 08/18/24 07:50 08/18/24 07:50 08/18/24 07:50 08/18/24 07:50
I&O
08/17/24 08/18/24 08/19/24
06:59 06:59 06:59
Intake Total 2385.6 / 2385.6 1220 / 1220
Output Total 1530 / 1630 1885 / 1885 525 / 525
Balance 855.6 / 755.6 -665 / -665 -525 / -525
[2024-08-18 13:10] LABS: Glucose - Point of Care 338 mg/dl (70-99)
[2024-08-18] MEDS: ZOSYN IV (13:12)
[2024-08-18] MEDS: STERILE WATER FOR INJECTION 20 ML IV ×2 (13:31→21:44)
[2024-08-18] MEDS: MERREM 1000 MG IV ×2 (13:31→21:44)
[2024-08-18] MEDS: HUMULIN R U-500 (CONCENTRATED) 30 UNITS SC (13:33)
--- NOTE | 2024-08-18 15:48 | W.PN.ID1 ---
Date of Service
Date of Service: August 18, 2024
Today's Communication
await Enterobacter sensi
switch to meropenem
Assessment / Plan
Surgical Site Infection/vascular graft infection
S/p debridement and excision of infected pseudoaneurysm and bovine pericardial patch
Seizure Disorder - on phenytoin
Class III obesity on ozempic
- aerobic and anaerobic cultures sent from the OR - Pseudomonas - intermediate sensi to zosyn
- blood cultures x2 in progress - 1 set with Enterobacter - await sensitivities
- start meropenem stop zosyn
- discussed with vascular, plan 6 week course of meropenem
follow clinically
Chief Complaint
-: Other (infected pseudoanuerysm and cellulitis)
Subjective / Review of Systems
afebrile
no events overnight
tolerating current therapies
Vital Signs / Physical Exam
Vital Signs
Vital Signs
Temp Pulse Resp BP Pulse Ox
97.8 F 78 16 156/72 95
08/18/24 07:50 08/18/24 07:50 08/18/24 07:50 08/18/24 07:50 08/18/24 07:50
Physical Exam
Constitutional: No Acute Distress
Cardiovascular: Regular Rate and S1/S2; Negative Murmur or Rub
Pulmonary: Clear and Symmetric; Negative Wheezes or Rales
Gastrointestinal: Soft, Non Tender, Non Distended and Normal Bowel Sounds
Skin: Warm and Dry; Negative Rash or Jaundice
Lines: Other (wound vac in place)
Objective Data
Lab Data
Lab Results
08/18/24 07:00
08/18/24 07:00
PT 16.4 Sec (11.4-14.6) H 08/15/24 05:27
INR 1.34 08/15/24 05:27
APTT 31.6 Sec (23.4-35.0) 08/15/24 05:27
Estimated Creat Clear 67 ml/min 08/18/24 07:00
Lactic Acid Cancelled 08/14/24 20:45
Total Bilirubin 0.9 mg/dl (0.2-1.3) 08/18/24 07:00
AST 76 U/L (17-59) H 08/18/24 07:00
ALT 45 U/L (0-50) 08/18/24 07:00
Alkaline Phosphatase 99 U/L (38-126) 08/18/24 07:00
Most recent labs reviewed.
Micro Results:
08/15/24 01:44 Anaerobic Culture - Preliminary
Groin - Left Culture pending. Anaerobic cultures are examined after 3
days incubation. Additional information to follow.
08/14/24 18:43 Blood Culture - Preliminary
Blood/Venous Enterobacter species
Gram Stain - Preliminary
08/15/24 01:44 Wound Culture - Preliminary
Groin - Left Pseudomonas aeruginosa
Gram Stain - Preliminary
08/14/24 18:43 Blood Culture - Preliminary
Blood/Venous No Growth in 72 hours- Final report to follow
08/15/24 08:57 MRSA Screen - Final
Nose No Methicillin Resistant Staphylococcus aureus isolated.
[2024-08-18] MEDS: NOVOLOG FLEXPEN-MODERATE RESISTANCE SC (18:20)
[2024-08-18 18:22] LABS: Glucose - Point of Care 108 mg/dl (70-99)
--- NOTE | 2024-08-18 19:24 | VATNOTE ---
PCN notified that PICC is properly placed and OK to use. Advised to remove an ipsilateral IVs and use new IV tubing if moving any infusions to the PICC line.
[2024-08-18 21:25] LABS: Glucose - Point of Care 71 mg/dl (70-99)
[2024-08-18] MEDS: TYLENOL 650 MG PO (23:58)
[2024-08-19 03:19] VITALS: BP 145/70
[2024-08-19] MEDS: MERREM 1000 MG IV ×3 (05:47→22:14)
[2024-08-19] MEDS: STERILE WATER FOR INJECTION 20 ML IV ×3 (05:47→22:14)
--- NOTE | 2024-08-19 07:20 | PN.DE.MGMTRT ---
Insulin Management
- -
08/19/2024: Diabetes management Consult Follow up:
74 year old male readmitted on 08/14 for infected left femoral artery ruptured pseudoaneurysm after long hospitalization 07/30-08/12 s/p Left femoral endarterectomy. PMH: CAD, LEONEL, GERD, HTN, PAD, Crohn's disease, Hypercholesterolemia, H/O
pancreatitis, BPH, Glaucoma, Former smoker, Seizure disorder and T2DM. Pt underwent emergent left external iliac artery to above-knee popliteal artery obturator bypass and debridement with wound vac placement.
Recent A1C 7.1%, follows Endo Dr. Rogers Diaz at [place]. Uses CGM [employer] Cheryl 3.
Pt was readmitted with Hyperglycemia. He reports that he was not receiving his regular doses of U-500 while at [facility] because the facility did not have that type of insulin in stock, instead he was receiving NovoLog AC and Lantus @HS, which he
believes contributed to uncontrolled blood sugars.
Prior to discharge last week, his U-500 doses were adjusted due to reduce CHO intake. Pt reports that he has no appetite but is willing to try ordering lunch now.
He is awake, A/O x3, resting in bed, pleasant, offers no complaints, able to discuss diabetes mgt.
POD #4, doing well.
08/16 Transitioned off insulin drip. Received U-500 20 units @ ~ noon. Received 30 units U-500 @ HS.
08/17 Fasting glucose 159. Doses of U-500 have been reduced 40 units in AM @ breakfast, 20 units @ lunch, 30 units @ HS and moderate corrective insulin with meals. Pre lunch glucose 322, pre dinner 415 and HS 390 (patient received novolog
corrective insulin).
08/18 AM U-500 dose increased to 70 units, lunch dose to 30 units and hs dose to 30 units.
08/19 HS glucose 71, patient received no HS U-500. Fasting glucose this AM 265. Due to pre dinner glucose of 108 and hs glucose 71, will reduce Lunch U-500 to 20 units.
Discussed with patient and nurse. I did ask nurse to have overnight provider reduce the dose of U-500 to 20 units if glucose is less than 100 at HS.
Will follow and make further adjustments if needed
Diabetes History
- -
Type of Diabetes: 2 requiring insulin
Pre-Admission Diabetes Regimen
08/18/24
07:00
Creatinine 1.2
Insulin Pump Settings
IP Diabetes Regimen
08/18/24 08/18/24 08/18/24
07:00 08:14 13:08
Glucose 269 H
POC Glucose 306 H 338 H
08/18/24 08/18/24
18:20 21:24
Glucose
POC Glucose 108 H 71
Meal type: Dinner
Meal type: Breakfast
Amount consumed: 50%
Amount consumed: 100%
Patient Education
[2024-08-19 07:50] VITALS: BP 141/79
--- NOTE | 2024-08-19 08:08 | W.PN.VS ---
Addendum entered and electronically signed by Chema Colin MD 08/19/24 14:37:
Seen and examined with PUBLISHING EDITOR Oskar and MELIA Mcleod. Agree with findings as noted below. Left lower quadrant dressing clean dry and intact. Abdomen is soft, nondistended, nontender. Left groin VAC in place. Groin is flat. No significant thigh
erythema. Left distal thigh dressing clean dry and intact. Left foot warm with palpable DP pulse. Plan/as discussed and noted below. Favor slightly prolonged course of IV antibiotics given virulence of organism, quickness with which infection
proceeded, Pseudomonas noted.
Original Note:
Today's Communication / Plan
-
Patient seen and examined at bedside with Dr. Chema Colin, below plan reviewed with attending.
Assessment/Plan
-
doing well post obturator bypass and pseudoaneurysm ligation
- Antibiotics per ID, will require long-term antibiotics, PICC line placed
- Cultures pending, appreciate ID for antibiotic management
- Out of bed/ambulate
- PT/OT
- Continue wound VAC
- Plan for SNF/[place] run, case management following, likely will be cleared for discharge from a vascular surgery perspective for tomorrow
Subjective Data
-
Date of Service: August 19, 2024
Patient seen and examined at bedside, reports continued pain at surgical incision most notably at left lower abdomen, does note pain is well-managed with current postoperative pain management. Additionally endorses that he was able to ambulate
yesterday and get out of bed to chair and restroom. He also states he feels much better given he had a bowel movement yesterday
Objective Data
-
Vital Signs
Temp Pulse Resp BP Pulse Ox
97.2 F 75 20 145/70 96
08/19/24 03:19 08/19/24 03:19 08/19/24 03:19 08/19/24 03:19 08/19/24 03:19
Intake and Output
1008/19/24 08/20/24
06:59 06:59 06:59
Intake Total 1220 / 1220 1440 / 1440
Output Total 1885 / 1885 1725 / 1725
Balance -665 / -665 -285 / -285
Intake:
Oral fluids 920 / 920 1440 / 1440
IV fluids (Total) 0 / 0
IV piggybacks 300 / 300
Output:
Urine, Perez 350 / 350
Urine, Voided 1535 / 1535 1725 / 1725
Other:
Number of approximated MODERATE 1
amounts of urine
How many times incontinent 2
SATURATED amount urine
Lab Results
08/18/24 07:00
08/18/24 07:00
Calcium 7.7 mg/dl (8.4-10.2) L 08/18/24 07:00
Phosphorus 2.4 mg/dl (2.5-4.5) L 08/18/24 07:00
Magnesium 2.3 mg/dl (1.6-2.3) 08/18/24 07:00
Total Bilirubin 0.9 mg/dl (0.2-1.3) 08/18/24 07:00
AST 76 U/L (17-59) H 08/18/24 07:00
ALT 45 U/L (0-50) 08/18/24 07:00
Alkaline Phosphatase 99 U/L (38-126) 08/18/24 07:00
Total Protein 4.9 g/dl (6.3-8.2) L 08/18/24 07:00
Albumin 2.6 g/dl (3.5-5.0) L 08/18/24 07:00
Physical Exam
-
AAOx3
No tachypnea on room air
No tachycardia
Abdomen soft
Abdominal surgical site and left thigh surgical site with phil dressings dry and intact
Left upper thigh VAC site CDI holding suction
Bilateral feet warm
[2024-08-19 08:20] LABS: Glucose - Point of Care 265 mg/dl (70-99)
--- NOTE | 2024-08-19 08:51 | PN.CDI ---
CDI
- -
CDI:
Physician Documentation Request
Admit Date: 08/14/24 19:37
Dear Doctor Max,
Please review the following and provide your response in the progress notes.
Clinical Indicators:
Pt admitted with Septic Shock Surgical site infection/vascular graft infection
Surgery on 08/15 Bypass with bovine pericardial /ESBL 600 cc
Trended Hemoglobin/Hematocrit below
08/14/24 08/15/24 08/16/24
16:46 05:27 04:15
Hgb 9.6 L 10.7 L 8.6 L
Hct 26.6 L 29.0 L 24.3 L
08/17/24 08/18/24
04:27 07:00
Hgb 8.0 L 8.2 L
Hct 22.2 L 23.9 L
Please provide a diagnosis for the above findings:
Acute blood loss anemia
Other (please specify)
Use of terms such as suspected, likely, concern for, or probable (associated with a specific diagnosis that is being evaluated, monitored, or treated as if it exists) are acceptable and can be coded in the inpatient setting, when documented at the
time of discharge.
Thank you,
Paulina Turcios RN
CDI Specialist
[place] [facility]
Please use your independent medical judgment in providing your response.
[2024-08-19] MEDS: NOVOLOG FLEXPEN-MODERATE RESISTANCE 5 UNITS SC ×2 (09:08→17:27)
[2024-08-19] MEDS: HUMULIN R U-500 (CONCENTRATED) 70 UNITS SC (09:09)
[2024-08-19] MEDS: PROTONIX 40 MG PO (09:12)
[2024-08-19] MEDS: HEPARIN 5000 UNITS SC ×2 (09:12→17:28)
[2024-08-19] MEDS: ASPIR LOW (ENTERIC COATED) 81 MG PO (09:12)
[2024-08-19] MEDS: DILANTIN 200 MG PO ×2 (09:12→22:12)
[2024-08-19] MEDS: LIPITOR 40 MG PO (09:12)
[2024-08-19] MEDS: SENOKOT-S PO ×2 (09:14→19:52)
[2024-08-19] MEDS: TYLENOL 650 MG PO ×2 (09:16→22:24)
[2024-08-19] MEDS: ROXICODONE 5 MG PO ×3 (09:17→22:23)
[2024-08-19 11:46] VITALS: BP 136/67
[2024-08-19 12:45] LABS: Glucose - Point of Care 355 mg/dl (70-99)
--- NOTE | 2024-08-19 12:45 | W.PN.ID1 ---
Date of Service
Date of Service: August 19, 2024
Today's Communication
- c/w meropenem discussed with vascular 08/18, plan 6 week course of meropenem
- picc in place
stable for dc from ID perspective
Assessment / Plan
Surgical Site Infection/vascular graft infection
S/p debridement and excision of infected pseudoaneurysm and bovine pericardial patch
Seizure Disorder - on phenytoin
Class III obesity on ozempic
- aerobic and anaerobic cultures sent from the OR - Pseudomonas
- blood cultures x2 in progress - 1 set with Enterobacter
- c/w meropenem discussed with vascular 08/18, plan 6 week course of meropenem
- picc in place
stable for dc from ID perspective
Chief Complaint
-: Other (infected pseudoanuerysm and cellulitis)
Subjective / Review of Systems
afebrile
bp stable
PICC placed no other events overnight
Vital Signs / Physical Exam
Vital Signs
Vital Signs
Temp Pulse Resp BP Pulse Ox
98.5 F 84 16 136/67 97
08/19/24 11:46 08/19/24 11:46 08/19/24 11:46 08/19/24 11:46 08/19/24 11:46
Physical Exam
Constitutional: No Acute Distress
Cardiovascular: Regular Rate and S1/S2; Negative Murmur or Rub
Pulmonary: Clear and Symmetric; Negative Wheezes or Rales
Gastrointestinal: Soft, Non Tender, Non Distended and Normal Bowel Sounds
Skin: Warm and Dry; Negative Rash or Jaundice
Objective Data
Lab Data
Lab Results
08/18/24 07:00
08/18/24 07:00
PT 16.4 Sec (11.4-14.6) H 08/15/24 05:27
INR 1.34 08/15/24 05:27
APTT 31.6 Sec (23.4-35.0) 08/15/24 05:27
Estimated Creat Clear 67 ml/min 08/18/24 07:00
Lactic Acid Cancelled 08/14/24 20:45
Total Bilirubin 0.9 mg/dl (0.2-1.3) 08/18/24 07:00
AST 76 U/L (17-59) H 08/18/24 07:00
ALT 45 U/L (0-50) 08/18/24 07:00
Alkaline Phosphatase 99 U/L (38-126) 08/18/24 07:00
Most recent labs reviewed.
Organism 1 Enterobacter cloacae
1. Enterobacter cloacae
M.I.C. RX
--------- ---
Amoxicillin/Potas. Clavulanate >16/8 R
Ampicillin >16 R
Ampicillin/Sulbactam >16/8 R
Aztreonam >16 R
Cefazolin >16 R
Cefepime >16 R
Ceftazidime >16 R
Ceftriaxone >2 R
Ertapenem >1 R
Ciprofloxacin <=0.25 S
Gentamicin <=2 S
Meropenem <=1 S
Piperacillin/Tazobactam >64 R
Tetracycline <=4 S
Tobramycin <=2 S
Trimethoprim/Sulfamethoxazole <=2/38 S
Micro Results:
08/15/24 01:44 Anaerobic Culture - Preliminary
Groin - Left Culture pending. Anaerobic cultures are examined after 3
days incubation. Additional information to follow.
08/14/24 18:43 Blood Culture - Preliminary
Blood/Venous Enterobacter cloacae
Gram Stain - Preliminary
08/14/24 18:43 Blood Culture - Preliminary
Blood/Venous No Growth in 4 days- Final report to follow
08/15/24 01:44 Wound Culture - Preliminary
Groin - Left Pseudomonas aeruginosa
Gram Stain - Preliminary
08/15/24 08:57 MRSA Screen - Final
Nose No Methicillin Resistant Staphylococcus aureus isolated.
Care Review
Plan reviewed with: Physician (Dr Lily lainez)
[2024-08-19] MEDS: NOVOLOG FLEXPEN-MODERATE RESISTANCE 9 UNITS SC (12:48)
[2024-08-19] MEDS: HUMULIN R U-500 (CONCENTRATED) 20 UNITS SC (12:49)
--- NOTE | 2024-08-19 13:34 | W.PN.HOSP.TC ---
Today's Communication/Plan
-
Plan to DC tomorrow if cleared by ID and Vascular to [facility]
Assessment / Plan
Assessment / Plan
Physical Exam
NAD, resting comfortably in bed
Scleral anicteric
Moist mucous membranes
No JVD
CTA bilateral
Normal S1-S2 no murmurs
Soft nontender nondistended bowel sounds active
No peripheral pitting edema
incision line appeared clean, nondraining
wounds are dressed appear clean, vac on
Moves extremities spontaneously
AAOx3
Assessment and Plan
Septic shock - resolved, off pressors
Surgical site infection/vascular graft infection
-Wound culture - pseudo. bcx growing enterococcus
--ID started Nitza, Picc line
--Follow up sensitivities if able to transition to po
-Vascular surgery following
-wound vac on, changes per vascular
-ID following
HyperK resolved
SUZANNE improving
Hyponatgremia - unchanged
Metabolic acidosis - improving
HLD
-Continue statin
GERD
-Continue PPI
Downgrade to tele
PT/OT
Anticipated Discharge: Within 24 hours
Subjective/Interval History
-
Date of Service: August 19, 2024
seen and examined. no new complaints
resting in bedside chair well
Objective Data
-
Vital Signs:
Vital Signs
Temp Pulse Resp BP Pulse Ox
98.5 F 84 16 136/67 97
08/19/24 11:46 08/19/24 11:46 08/19/24 11:46 08/19/24 11:46 08/19/24 11:46
I&O
08/18/24 08/19/24 08/20/24
06:59 06:59 06:59
Intake Total 1220 / 1220 1440 / 1440 240 / 240
Output Total 1884 / 188 1725 / 1725 400 / 400
Balance -665 / -665 -285 / -285 -160 / -160
--- NOTE | 2024-08-19 14:21 | CM ---
Reviewed the chart notes. Patient's IV abx switched to meropenem. CM continues to be available to patient/family and is monitoring medical plan for needs at discharge.
Plan: Discharge to [facility]. No precert required.
Call report to: [phone]
Fax report to: [phone]
Medical necessity and transport forms on chart.
[2024-08-19 15:15] VITALS: BP 140/65
[2024-08-19 17:20] LABS: Glucose - Point of Care 274 mg/dl (70-99)
[2024-08-19 19:34] VITALS: BP 108/65
[2024-08-19 21:28] LABS: Glucose - Point of Care 281 mg/dl (70-99)
[2024-08-19] MEDS: HUMULIN R U-500 (CONCENTRATED) 30 UNITS SC (22:12)
[2024-08-19 22:42] VITALS: BP 120/65
[2024-08-20] MEDS: HEPARIN 5000 UNITS SC ×4 (00:45→23:02)
[2024-08-20 03:14] VITALS: BP 146/58
[2024-08-20] MEDS: STERILE WATER FOR INJECTION 20 ML IV ×3 (06:00→21:07)
[2024-08-20] MEDS: MERREM 1000 MG IV ×3 (06:01→21:07)
[2024-08-20] MEDS: ROXICODONE 5 MG PO ×3 (06:06→21:10)
[2024-08-20] MEDS: TYLENOL 650 MG PO (06:06)
--- NOTE | 2024-08-20 07:34 | PN.DE.MGMTRT ---
Insulin Management
- -
08/20/2024: Diabetes management F/U:
74 year old male readmitted on 08/14 for infected left femoral artery ruptured pseudoaneurysm after long hospitalization 07/30-08/12 s/p Left femoral endarterectomy. PMH: CAD, LEONEL, GERD, HTN, PAD, Crohn's disease, Hypercholesterolemia, H/O
pancreatitis, BPH, Glaucoma, Former smoker, Seizure disorder and T2DM. Pt underwent emergent left external iliac artery to above-knee popliteal artery obturator bypass and debridement with wound vac placement.
Recent A1C 7.1%, follows Endo Dr. Rogers Diaz at [facility]. Uses CGM Pockether[employer] Cheryl 3.
Pt was readmitted with Hyperglycemia. He reports that he was not receiving his regular doses of U-500 while at [facility] because the facility did not have that type of insulin in stock, instead he was receiving NovoLog AC and Lantus @HS, which he
believes contributed to uncontrolled blood sugars.
Prior to discharge last week, his U-500 doses were adjusted due to reduce CHO intake. Pt reports that he has no appetite but is willing to make effort in improving his nutrition to optimize his healing.
Pt awake, A/O x3, resting in bed, pleasant, offers no complaints, able to discuss diabetes mgt.
POD #5, doing well. 08/16 Transitioned off insulin drip to his U-500
08/18 AM U-500 dose increased to 70 units, lunch dose to 30 units and hs dose to 30 units due to persistent Hyperglycemia. HS glucose 71, patient received no HS U-500. 08/19 Fasting glucose 265. Due to pre dinner glucose of 108 and hs glucose 71,
Lunch U-500 dose was reduced to 20 units.
08/19 premeal glucose elevated 265 to 355 and HS glucose was 281
Will increase AM dose to 75 units, noon and HS dose to 40 units.
Discussed with patient and nurse. Nurse will ask overnight provider reduce the dose of U-500 to 30 units if glucose is less than 100 at HS.
Will follow and make further adjustments if needed
Discussed wit pt and Nurse
Diabetes History
- -
Type of Diabetes: 2 requiring insulin
Pre-Admission Diabetes Regimen
Insulin Pump Settings
IP Diabetes Regimen
08/19/24 08/19/24 08/19/24
08:17 12:44 17:18
POC Glucose 265 H 355 H 274 H
08/19/24
21:24
POC Glucose 281 H
Meal type: Lunch
Meal type: Breakfast
Amount consumed: 85%
Amount consumed: 85%
Patient Education
[2024-08-20 07:48] LABS: Glucose - Point of Care 244 mg/dl (70-99)
[2024-08-20 07:50] VITALS: BP 139/65
[2024-08-20] MEDS: HUMULIN R U-500 (CONCENTRATED) 75 UNITS SC (08:00)
[2024-08-20] MEDS: ASPIR LOW (ENTERIC COATED) 81 MG PO (08:04)
[2024-08-20] MEDS: DILANTIN 200 MG PO ×2 (08:04→21:07)
[2024-08-20] MEDS: SENOKOT-S PO ×2 (08:04→21:16)
[2024-08-20] MEDS: NOVOLOG FLEXPEN-MODERATE RESISTANCE 300 UNITS SC (08:04)
[2024-08-20] MEDS: LIPITOR 40 MG PO (08:05)
[2024-08-20] MEDS: PROTONIX 40 MG PO (08:05)
--- NOTE | 2024-08-20 08:33 | W.PN.VS ---
Addendum entered and electronically signed by Chema Colin MD 08/20/24 08:53:
Seen and examined with MELIA Mcleod. Agree with findings as noted below. No new complaints. Still some soreness to palpation/tenderness at the abdominal incision site. But otherwise no significant complaints. Abdomen is soft. Loraine-incisional
tenderness left lower quadrant but otherwise abdomen is soft without any tenderness. Dressing is clean dry and intact. Groin VAC in place. Left mid to distal thigh dressing clean dry and intact. No hematomas. No erythema in the thigh. Foot is
warm with palpable DP pulse. Plan/as discussed and noted below.
Original Note:
Today's Communication / Plan
-
Patient seen and examined at bedside with Dr. Chema Colin, below plan reviewed with attending.
Assessment/Plan
-
doing well post obturator bypass and pseudoaneurysm ligation
-PICC line placed for long-term antibiotics
- Out of bed/ambulate
- PT/OT
- Continue wound VAC at SNF, will need phil dressings removed prior to transfer to SNF, can leave abdomen and lower thigh stable surgical incisions open to air or covered with gauze as needed for drainage. If covered with gauze and paper tape
placed to collect drainage must be changed to daily or more frequently if soiled.
-Cleared for discharge to SNF from a vascular surgery perspective
Subjective Data
-
Date of Service: August 20, 2024
Patient seen and examined at bedside, reports continued adequately managed postoperative pain. Reports tolerating p.o. diet. Denies nausea, vomiting, fever, chills. Reports he is feeling well and up to discharge to SNF as planned for today.
Objective Data
-
Vital Signs
Temp Pulse Resp BP Pulse Ox
97.9 F 70 20 139/65 99
08/20/24 07:50 08/20/24 07:50 08/20/24 07:50 08/20/24 07:50 08/20/24 07:50
Intake and Output
08/19/24 08/20/24 08/21/24
06:59 06:59 06:59
Intake Total 1440 / 1440 1200 / 1200
Output Total 1725 / 1725 1250 / 1250
Balance -285 / -285 -50 / -50
Intake:
Oral fluids 1440 / 1440 1200 / 1200
Output:
Urine, Voided 1725 / 1725 1250 / 1250
Other:
How many times incontinent 1
MODERATE amount urine
Lab Results
08/18/24 07:00
08/18/24 07:00
Calcium 7.7 mg/dl (8.4-10.2) L 08/18/24 07:00
Phosphorus 2.4 mg/dl (2.5-4.5) L 08/18/24 07:00
Magnesium 2.3 mg/dl (1.6-2.3) 08/18/24 07:00
Total Bilirubin 0.9 mg/dl (0.2-1.3) 08/18/24 07:00
AST 76 U/L (17-59) H 08/18/24 07:00
ALT 45 U/L (0-50) 08/18/24 07:00
Alkaline Phosphatase 99 U/L (38-126) 08/18/24 07:00
Total Protein 4.9 g/dl (6.3-8.2) L 08/18/24 07:00
Albumin 2.6 g/dl (3.5-5.0) L 08/18/24 07:00
Physical Exam
-
AAOx3
No tachypnea on room air
No tachycardia
Abdomen soft
Abdominal surgical site and left thigh surgical site with phil dressings dry and intact
Left upper thigh VAC site CDI holding suction
Bilateral feet warm
--- NOTE | 2024-08-20 11:13 | CM ---
Met with patient at bedside.
Plan to return to [facility] today
[facility] liaison notified - after 3pm request
transportation forms on chart.
nursing aware & [facility]OC[facility] aware.
PLAN: [facility] SNF
Report - [phone]

Transportation via ambulance. Time TBD (request after 3)
[2024-08-20 11:26] VITALS: BP 141/71
--- NOTE | 2024-08-20 12:00 | WOUNDNOTE ---
WO RN note: Plan is discharge to [facility] today. Ashu texted RN Maddy requesting she remove patient's ROSMERY incisional dressings (leave incisions TELECOM MANAGER), remove vac dressing and apply saline moistened gauze for transfer (SNF applies their own vac
equipment) and place Hospital rental vac pump and plug in cord in the 2S soiled utility room once discharge is confirmed.
[2024-08-20 12:28] LABS: Glucose - Point of Care 194 mg/dl (70-99)
[2024-08-20] MEDS: NOVOLOG FLEXPEN-MODERATE RESISTANCE 1 UNITS SC (12:31)
[2024-08-20] MEDS: HUMULIN R U-500 (CONCENTRATED) 40 UNITS SC (12:32)
--- NOTE | 2024-08-20 14:03 | W.PN.HOSP.TC ---
Today's Communication/Plan
-
dc to [facility]. 3day script for oxy provided
More than 30 minutes spent in discharge including
Final examination of the patient
Summarizing hospital stay
Instructions for continuing care to all relevant caregivers
Preparation of discharge records, prescriptions, and referral forms
Total time spent (in minutes): 43m
Assessment / Plan
Assessment / Plan
Physical Exam
NAD, resting comfortably in bed
Scleral anicteric
Moist mucous membranes
No JVD
CTA bilateral
Normal S1-S2 no murmurs
Soft nontender nondistended bowel sounds active
No peripheral pitting edema
wounds are dressed appear clean, vac on
Moves extremities spontaneously
AAOx3
Assessment and Plan
Septic shock - resolved, off pressors
Surgical site infection/vascular graft infection
-Wound culture - pseudo. bcx growing enterococcus
--ID started Nitza for 6weeks, Picc line
--Follow up sensitivities if able to transition to po
-Vascular surgery following
-wound vac on, changes per vascular
-ID following
HyperK resolved
SUZANNE improving
Hyponatgremia - unchanged
Metabolic acidosis - improving
HLD
-Continue statin
GERD
-Continue PPI
Downgrade to tele
PT/OT
DNR/DNI
Anticipated Discharge: Today
Subjective/Interval History
-
Date of Service: August 20, 2024
seen and examined. no new complaints. no acute ovenright events
feeling better
states he would like to stay in the hospital for 6weeks to revieve the antibiotics but understands that he cannot
Objective Data
-
Vital Signs:
Vital Signs
Temp Pulse Resp BP Pulse Ox
98.3 F 80 19 141/71 98
08/20/24 11:26 08/20/24 11:26 08/20/24 11:26 08/20/24 11:26 08/20/24 11:26
I&O
08/19/24 08/20/24 08/21/24
06:59 06:59 06:59
Intake Total 1440 / 1440 1200 / 1200
Output Total 1725 / 1725 1250 / 1250
Balance -285 / -285 -50 / -50
--- NOTE | 2024-08-20 14:06 | W.DCSUMMARY ---
Discharge Summary
Discharge Data
Date of Admission: 08/14/24
Date of Discharge: 08/20/24
-
Pending Results: No
Hospital Course
74M history of PAD status post left iliofemoral endarterectomy 10 days ago, CAD, hypertension, diabetes, Crohn's disease, hypercholesteremia, pancreatitis, obstructive sleep apnea, GERD, BPH, glaucoma, former smoker, seizure disorder, presented for
uncontrolled hyperglycemia and fevers overnight with increased swelling and redness at surgical site and left growing worsening redness of the left leg. Concern for surgical site infection. CTA aorta with runoff was obtained that demonstrated
pseudoaneurysm and luminal narrowing, gas containing soft tissue collection suggesting infected collection. Taken to the OR for a postoperative bypass/excision of infected pseudoaneurysm and bovine pericardial patch and ligation. Vascular surgery
continue to follow place wound VAC with dressing changes recommended. Culture data as below now with PICC line for total of 6 weeks of meropenem IV for which will be completed at [facility].
Wound culture growing: Psuedo and anerobic culture growing Finegoldia magna
Bcx growing in one bottle growing Enterobacter
All bacteria per ID covered by Nitza.
CTAP
IMPRESSION:
1.). There is new 4 x 4 by 6 cm pseudoaneurysm with internal vascular flow at the left common femoral artery associated with compression of the [place] common femoral and proximal superficial femoral arteries with less than 50% luminal narrowing.
2). Anterior to the pseudoaneurysm there is a gas containing soft tissue collection measuring approximately 3.5 x 3.5 x 10 cm with overlying surgical clips. This collection has increased in size when compared with the 08/10/2024 examination
suggesting that this may be infected collection rather than related to recent surgical intervention
3). Extensive partially calcific atherosclerotic changes as detailed above.
4). 5 cm umbilical hernia which contains a loop of bowel without associated obstruction or strangulation.
5). Diffuse fatty infiltration of the liver
6). Multilevel lumbar degenerative disc disease Amos, arteriography left common
Adjacent 10 cm gas-containing anterior ingesting
CXR
IMPRESSION:
1. Endotracheal tube in normal position.
2. Mildly decreased bilateral lung volumes.
3. Moderate opacity in the retrocardiac left lower lobe (probably subsegmental atelectasis).
CXR
IMPRESSION:
Right upper extremity PICC with catheter tip projecting over the superior vena cava.
Wound Care Instructions
L groin-wound vac therapy, use black foam, Change every 48 - 72 hours (i. e. [id number]-[id number]) and prn if unable to obtain a seal. Low Intensity, Continuous at 125 mmHg. Upon discharge or transfer to another facility, remove VAC foam and
apply NS moistened gauze dressing unless home VAC unit available.
Zinc barrier ointment (i.e. Calazime) to sacral/coccyx crease bid.
Pressure redistributing chair cushion (i.e. Bariatric air chair cushion).
Elevate heels off bed with pillows.
Follow up with vascular surgeon.
Discharge Plan
-
Patient Disposition: [facility]
Discharge Diagnosis/Procedures: Surgical site infection
Diet: As tolerated
Activity: No strenuous activity
Driving Restrictions: No driving
Bathing Restrictions: OK to Shower
Activity Restrictions/Additional Instructions:
Presented for uncontrolled hyperglycemia and fevers overnight with increased swelling and redness at surgical site and left growing worsening redness of the left leg. Concern for surgical site infection. CTA aorta with runoff was obtained that
demonstrated pseudoaneurysm and luminal narrowing, gas containing soft tissue collection suggesting infected collection. Taken to the OR for a postoperative bypass/excision of infected pseudoaneurysm and bovine pericardial patch and ligation.
Vascular surgery continue to follow place wound VAC with dressing changes recommended. Culture data as below now with PICC line for total of 6 weeks of meropenem IV for which will be completed at [facility].
Wound culture growing: Psuedo and anerobic culture growing Finegoldia magna
Bcx growing in one bottle growing Enterobacter
All bacteria per ID covered by Nitza.
CTAP
IMPRESSION:
1.). There is new 4 x 4 by 6 cm pseudoaneurysm with internal vascular flow at the left common femoral artery associated with compression of the [place] common femoral and proximal superficial femoral arteries with less than 50% luminal narrowing.
2). Anterior to the pseudoaneurysm there is a gas containing soft tissue collection measuring approximately 3.5 x 3.5 x 10 cm with overlying surgical clips. This collection has increased in size when compared with the 08/10/2024 examination
suggesting that this may be infected collection rather than related to recent surgical intervention
3). Extensive partially calcific atherosclerotic changes as detailed above.
4). 5 cm umbilical hernia which contains a loop of bowel without associated obstruction or strangulation.
5). Diffuse fatty infiltration of the liver
6). Multilevel lumbar degenerative disc disease Amos, arteriography left common
Adjacent 10 cm gas-containing anterior ingesting
CXR
IMPRESSION:
1. Endotracheal tube in normal position.
2. Mildly decreased bilateral lung volumes.
3. Moderate opacity in the retrocardiac left lower lobe (probably subsegmental atelectasis).
CXR
IMPRESSION:
Right upper extremity PICC with catheter tip projecting over the superior vena cava.
Wound Care Instructions
L groin-wound vac therapy, use black foam, Change every 48 - 72 hours (i. e. [id number]-Msbkkuq) and prn if unable to obtain a seal. Low Intensity, Continuous at 125 mmHg. Upon discharge or transfer to another facility, remove VAC foam and
apply NS moistened gauze dressing unless home VAC unit available.
Zinc barrier ointment (i.e. Calazime) to sacral/coccyx crease bid.
Pressure redistributing chair cushion (i.e. Bariatric air chair cushion).
Elevate heels off bed with pillows.
Follow up with vascular surgeon.
Referrals:
Krystian Wood MD [Active] - in one to two months (to discuss possible sleep disordered breathing)
Teodoro Barnard, [Family Provider] -
Chema Colin MD [Active] - in one to two weeks
Eliz Mchugh CRNP [Specified Professional Personl] - 08/31/24 10:15 am
Prescriptions:
Continued
phenytoin sodium extended 100 MG capsule
200 mg PO BID
fluticasone propionate 1 SPRAY spray,suspension
2 spray intranasal DAILY
atorvastatin 40 MG tablet
40 mg PO DAILY
pantoprazole 40 MG tablet,delayed release (DR/EC)
40 mg PO DAILY
lisinopril-hydrochlorothiazide 20-12.5 mg Tablet
2 tab PO DAILY Qty: 1 0RF
Rx Instructions:
Hold if systolic blood pressure <130 while on Oxycodone.
amlodipine 5 MG tablet
5 mg PO DAILY Qty: 1 0RF
Rx Instructions:
Hold if systolic blood pressure <130 while on Oxycodone.
aspirin 81 mg Tablet,Delayed Release (Dr/Ec)
81 mg PO DAILY
Ozempic 0.25 mg or 0.5 mg(2 mg/1.5 mL) Pen Injector
0.5 mg SC QWEEK
docusate sodium 100 mg Capsule
100 mg PO BID Qty: 20 0RF
oxycodone 5 mg tablet
5 mg PO Q4HPRN PRN (Reason: severe pain)
Discontinued
magnesium 200 mg Tablet
400 mg PO BID
amoxicillin 500 mg capsule
500 mg PO Q8H
doxycycline hyclate 100 mg capsule
100 mg PO Q12
No Action
metformin 1,000 mg Tablet
1,000 mg PO BID
Humulin R U-500 (Conc) Kwikpen 500 unit/mL (3 mL) insulin pen
30 unit SC NOON
Humulin R U-500 (Conc) Kwikpen 500 unit/mL (3 mL) insulin pen
20 unit SC HS
Humulin R U-500 (Conc) Kwikpen 500 unit/mL (3 mL) insulin pen
75 unit SC DAILY
Rx Instructions:
75 units in AM
30 units at NOON
20 units at HS
Discharge Date and Time
Print Language: YORUBA
[2024-08-20] MEDS: DILAUDID 0.5 MG IV (14:07)
--- NOTE | 2024-08-20 14:32 | W.PN.UPDATE ---
Update Note
Progress Note Update
Patient seen and examined at bedside, dressings changed in preparation for transfer to [facility] facility, when palpable seroma was noted at lateral and of abdomen surgical incision, was able to express roughly 4 mL of serous fluid from
surgical incision. No evidence of purulent drainage or foul-smelling drainage. Reviewed findings with attending Dr. Chema Colin, and plan will be to cancel discharge to [facility] facility. Keep patient over the weekend for continued
observation and on Friday08/22/[address] aorta with runoff to ensure no recollection or involvement with new graft, can consider scan earlier if clinical exam changes prior to Friday. Plan relayed to hospitalist Dr. Santana via [place] text
and bedside nurse. Wound VAC replaced by this provider to left groin.
[2024-08-20 15:25] VITALS: BP 165/63
[2024-08-20 17:08] LABS: Glucose - Point of Care 57 mg/dl (70-99)
[2024-08-20 17:30] LABS: Glucose - Point of Care 61 mg/dl (70-99)
[2024-08-20] MEDS: NOVOLOG FLEXPEN-MODERATE RESISTANCE SC (17:54)
[2024-08-20 17:55] LABS: Glucose - Point of Care 78 mg/dl (70-99)
[2024-08-20 18:28] VITALS: BP 122/60
[2024-08-20 20:13] LABS: Glucose - Point of Care 155 mg/dl (70-99)
[2024-08-20 22:11] LABS: Glucose - Point of Care 100 mg/dl (70-99)
[2024-08-20] MEDS: HUMULIN R U-500 (CONCENTRATED) SC (22:36)
--- NOTE | 2024-08-20 22:45 | PTCARENOTE ---
Pt's blood sugar at 22:00 was 100. Pt has 40 units of humulin R U-500 ordered HS. Per diabetes note from today, it was recommended to lower HS insulin to 30 units if blood sugar <100. House provider notified via [place] text. Boxed lunch obtained for
pt. Orders received to give 25 units of insulin. Will check blood sugar at 03:00 per hypoglycemia protocol.
[2024-08-20] MEDS: HUMULIN R U-500 (CONCENTRATED) 25 UNITS SC (23:00)
[2024-08-20 23:33] VITALS: BP 127/61
[2024-08-21 03:07] LABS: Glucose - Point of Care 172 mg/dl (70-99)
[2024-08-21] MEDS: MERREM 1000 MG IV ×3 (05:42→21:54)
[2024-08-21] MEDS: STERILE WATER FOR INJECTION 20 ML IV ×3 (05:42→21:54)
[2024-08-21 05:44] LABS: Hematocrit 24.6 % (39.0-52.0); Hemoglobin 8.6 g/dL (13.0-18.0); Mean Corpuscular Hgb 30.3 pg (27.0-31.0); Mean Corpuscular Volume 86.6 fL (80.0-94.0); Platelet Count 459 10^3/uL (130-400); Red Blood Cell Count 2.84 10^6/uL (4.70-6.10); Red Cell Dist. Width 15.2 % (11.5-14.5); White Blood Cell Count 11.8 10^3/uL (4.8-10.8)
[2024-08-21 06:04] LABS: Blood Urea Nitrogen 26 mg/dl (9-20); Calcium 8.3 mg/dl (8.4-10.2); Carbon Dioxide 25 mmol/L (22-30); Chloride 100 mmol/L (98-107); Estimated Creatinine Clearance 80 ml/min; Glucose 209 mg/dl (70-99); Potassium 5.1 mmol/L (3.5-5.1); Sodium 134 mmol/L (135-145); eGFR > 60.00
[2024-08-21 07:00] VITALS: BP 146/71
--- NOTE | 2024-08-21 07:27 | W.PN.VS ---
Today's Communication / Plan
-
as above
Assessment/Plan
-
doing well post obturator bypass and pseudoaneurysm ligation
-PICC line placed for long-term antibiotics
- Out of bed/ambulate
- PT/OT
- Continue wound VAC at [facility], will need phil dressings removed prior to transfer to [facility], can leave abdomen and lower thigh stable surgical incisions open to air or covered with gauze as needed for drainage. If covered with gauze and paper tape
placed to collect drainage must be changed to daily or more frequently if soiled.
-plan to repeat CTA tomorrow
Subjective Data
-
Date of Service: August 21, 2024
No acute events - states he is feeling wiped out but no specific complaints
Objective Data
-
Vital Signs
Temp Pulse Resp BP Pulse Ox
98.2 F 83 16 127/61 98
08/20/24 23:33 08/20/24 23:33 08/20/24 23:33 08/20/24 23:33 08/20/24 23:33
Intake and Output
08/20/24 08/21/24 08/22/24
06:59 06:59 06:59
Intake Total 1200 / 1200 1380 / 1380
Output Total 1250 / 1250 1849 / 1850
Balance -50 / -50 -470 / -470
Intake:
Oral fluids 1200 / 1200 1380 / 1380
Output:
Urine, Voided 1250 / 1250 1850 / 1850
Other:
How many times incontinent 1
MODERATE amount urine
Lab Results
08/21/24 05:30
08/21/24 05:30
Calcium 8.3 mg/dl (8.4-10.2) L 08/21/24 05:30
Phosphorus 2.4 mg/dl (2.5-4.5) L 08/18/24 07:00
Magnesium 2.3 mg/dl (1.6-2.3) 08/18/24 07:00
Total Bilirubin 0.9 mg/dl (0.2-1.3) 08/18/24 07:00
AST 76 U/L (17-59) H 08/18/24 07:00
ALT 45 U/L (0-50) 08/18/24 07:00
Alkaline Phosphatase 99 U/L (38-126) 08/18/24 07:00
Total Protein 4.9 g/dl (6.3-8.2) L 08/18/24 07:00
Albumin 2.6 g/dl (3.5-5.0) L 08/18/24 07:00
Physical Exam
-
NAD
L RP incision c/d/i, no drainage
vac in place
[2024-08-21] MEDS: ROXICODONE 5 MG PO ×3 (07:41→19:35)
[2024-08-21] MEDS: HEPARIN 5000 UNITS SC ×3 (08:35→23:08)
[2024-08-21] MEDS: PROTONIX 40 MG PO (08:35)
[2024-08-21] MEDS: ASPIR LOW (ENTERIC COATED) 81 MG PO (08:35)
[2024-08-21] MEDS: LIPITOR 40 MG PO (08:35)
[2024-08-21] MEDS: SENOKOT-S 1 TABLET PO (08:35)
[2024-08-21] MEDS: DILANTIN 200 MG PO ×2 (08:35→19:35)
[2024-08-21 08:44] LABS: Glucose - Point of Care 270 mg/dl (70-99)
[2024-08-21] MEDS: NOVOLOG FLEXPEN-MODERATE RESISTANCE 5 UNITS SC (08:46)
[2024-08-21] MEDS: HUMULIN R U-500 (CONCENTRATED) 75 UNITS SC (08:59)
[2024-08-21 11:09] LABS: Glucose - Point of Care 327 mg/dl (70-99)
--- NOTE | 2024-08-21 12:15 | PTCARENOTE ---
BG prior to lunch 327. Patient stated he was not eating lunch. Stated he would usually hold novolog and take 20u humilin R instead of 40. MD Lloyd Santana notified. Ordered to give 20U humilin R and hold novolog.
[2024-08-21] MEDS: NOVOLOG FLEXPEN-MODERATE RESISTANCE SC ×2 (12:20→17:21)
[2024-08-21] MEDS: HUMULIN R U-500 (CONCENTRATED) SC (12:20)
[2024-08-21] MEDS: HUMULIN R U-500 (CONCENTRATED) 20 UNITS SC (13:14)
--- NOTE | 2024-08-21 13:27 | W.PN.HOSP.TC ---
Today's Communication/Plan
-
follow for repeat cta on 08/22 per Vascular
continue meropenem iv via picc for 6weeks
Assessment / Plan
Assessment / Plan
Physical Exam
NAD, resting comfortably in bed
Scleral anicteric
Moist mucous membranes
No JVD
CTA bilateral
Normal S1-S2 no murmurs
Soft nontender nondistended bowel sounds active
No peripheral pitting edema
wounds are dressed appear clean, vac on
Moves extremities spontaneously
AAOx3
Assessment and Plan
Septic shock - resolved, off pressors
Surgical site infection/vascular graft infection
-Wound culture - pseudo. bcx growing enterococcus
--ID started Nitza for 6weeks, Picc line
--Follow up sensitivities if able to transition to po
-Vascular surgery following
-wound vac on, changes per vascular
-ID following
HyperK resolved
SUZANNE improving
Hyponatgremia - unchanged
Metabolic acidosis - improving
HLD
-Continue statin
GERD
-Continue PPI
Downgrade to tele
PT/OT
DNR/DNI
Anticipated Discharge: 24 - 48 hours
Subjective/Interval History
-
Date of Service: August 21, 2024
seen and examind. in good spirits. understands why he has to stay the weekend with the concern fo the fluids collection and repeating ct to r/o abscess on 08/22
Objective Data
-
Labs:
Laboratory Results
08/21/24
05:30
WBC 11.8 H
Hgb 8.6 L
Hct 24.6 L
Plt Count 459 H D
Sodium 134 L
Potassium 5.1
Chloride 100
Carbon Dioxide 25
BUN 26 H
Creatinine 1.0
Glucose 209 H
Calcium 8.3 L
Vital Signs:
Vital Signs
Temp Pulse Resp BP Pulse Ox
98.3 F 81 16 146/71 96
08/21/24 07:00 08/21/24 07:00 08/21/24 07:00 08/21/24 07:00 08/21/24 07:00
I&O
08/20/24 08/21/24 08/22/24
06:59 06:59 06:59
Intake Total 1200 / 1200 1380 / 1380
Output Total 1250 / 1250 1850 / 1850
Balance -50 / -50 -470 / -470
[2024-08-21 15:24] VITALS: BP 141/70
[2024-08-21 17:09] LABS: Glucose - Point of Care 148 mg/dl (70-99)
[2024-08-21] MEDS: TYLENOL 650 MG PO (19:36)
[2024-08-21] MEDS: SENOKOT-S PO (19:41)
[2024-08-21 21:55] LABS: Glucose - Point of Care 235 mg/dl (70-99)
[2024-08-21] MEDS: HUMULIN R U-500 (CONCENTRATED) 40 UNITS SC (22:33)
--- NOTE | 2024-08-21 23:00 | PTCARENOTE ---
Assumed pt care at 23:00, pt AOx3, bed in a low position, wound vac in place, denies pain, pt ready to go to sleep, call light in reach.
[2024-08-21 23:29] VITALS: BP 110/94
[2024-08-22 05:38] LABS: Hematocrit 25.4 % (39.0-52.0); Hemoglobin 8.8 g/dL (13.0-18.0); Mean Corp Hgb Conc. 34.6 g/dL (33.0-37.0); Mean Corpuscular Hgb 30.6 pg (27.0-31.0); Mean Corpuscular Volume 88.2 fL (80.0-94.0); Mean Platelet Volume 8.1 fL (7.4-10.4); Platelet Count 461 10^3/uL (130-400); Red Blood Cell Count 2.88 10^6/uL (4.70-6.10); Red Cell Dist. Width 15.6 % (11.5-14.5); White Blood Cell Count 11.4 10^3/uL (4.8-10.8)
[2024-08-22] MEDS: STERILE WATER FOR INJECTION 20 ML IV ×3 (05:50→21:53)
[2024-08-22] MEDS: MERREM 1000 MG IV ×3 (05:50→21:53)
[2024-08-22 06:02] LABS: Blood Urea Nitrogen 27 mg/dl (9-20); Calcium 8.7 mg/dl (8.4-10.2); Carbon Dioxide 27 mmol/L (22-30); Chloride 99 mmol/L (98-107); Estimated Creatinine Clearance 73 ml/min; Glucose 202 mg/dl (70-99); Potassium 4.9 mmol/L (3.5-5.1); Sodium 131 mmol/L (135-145); eGFR > 60.00
[2024-08-22] MEDS: ROXICODONE 5 MG PO ×5 (06:03→23:34)
[2024-08-22 07:10] LABS: Glucose - Point of Care 300 mg/dl (70-99)
--- NOTE | 2024-08-22 07:20 | W.PN.VS ---
Today's Communication / Plan
-
as above
Assessment/Plan
-
doing well post obturator bypass and pseudoaneurysm ligation
-PICC line placed for long-term antibiotics
- Out of bed/ambulate
- PT/OT
- Continue wound VAC at [facility], will need phil dressings removed prior to transfer to [facility], can leave abdomen and lower thigh stable surgical incisions open to air or covered with gauze as needed for drainage. If covered with gauze and paper tape
placed to collect drainage must be changed to daily or more frequently if soiled.
-plan to repeat CTA today
Subjective Data
-
Date of Service: August 22, 2024
No acute events. Feels well.
Objective Data
-
Vital Signs
Temp Pulse Resp BP Pulse Ox
97.5 F 77 16 110/94 100
08/21/24 23:29 08/21/24 23:29 08/21/24 23:29 08/21/24 23:29 08/21/24 23:29
Intake and Output
08/21/24 08/22/24 08/23/24
06:59 06:59 06:59
Intake Total 1380 / 1380 3894 / 3894
Output Total 1849
Balance -470 / -470 2068
Intake:
Oral fluids 1380 / 1380 3894 / 3894
Output:
Urine, Voided 1849
Other:
How many times incontinent 2
MODERATE amount urine
Lab Results
08/22/24 05:10
08/22/24 05:10
Calcium 8.7 mg/dl (8.4-10.2) 08/22/24 05:10
Phosphorus 2.4 mg/dl (2.5-4.5) L 08/18/24 07:00
Magnesium 2.3 mg/dl (1.6-2.3) 08/18/24 07:00
Total Bilirubin 0.9 mg/dl (0.2-1.3) 08/18/24 07:00
AST 76 U/L (17-59) H 08/18/24 07:00
ALT 45 U/L (0-50) 08/18/24 07:00
Alkaline Phosphatase 99 U/L (38-126) 08/18/24 07:00
Total Protein 4.9 g/dl (6.3-8.2) L 08/18/24 07:00
Albumin 2.6 g/dl (3.5-5.0) L 08/18/24 07:00
Physical Exam
-
NAD
Abd incision c/d/i, No drainage
Vac in place
[2024-08-22 07:25] VITALS: BP 133/66
[2024-08-22] MEDS: HUMULIN R U-500 (CONCENTRATED) 75 UNITS SC (08:11)
[2024-08-22] MEDS: NOVOLOG FLEXPEN-MODERATE RESISTANCE 7 UNITS SC (08:13)
[2024-08-22] MEDS: HEPARIN 5000 UNITS SC ×3 (08:14→23:35)
[2024-08-22] MEDS: PROTONIX 40 MG PO (08:14)
[2024-08-22] MEDS: SENOKOT-S 1 TABLET PO (08:14)
[2024-08-22] MEDS: ASPIR LOW (ENTERIC COATED) 81 MG PO (08:14)
[2024-08-22] MEDS: LIPITOR 40 MG PO (08:14)
[2024-08-22] MEDS: DILANTIN 200 MG PO ×2 (08:14→19:32)
[2024-08-22 11:51] LABS: Glucose - Point of Care 257 mg/dl (70-99)
[2024-08-22] MEDS: NOVOLOG FLEXPEN-MODERATE RESISTANCE SC ×2 (11:56→16:50)
--- NOTE | 2024-08-22 12:46 | W.PN.HOSP.TC ---
Addendum entered and electronically signed by Lloyd Santana MD 08/22/24 14:27:
acute blood loss anemia on chronic anemia
Original Note:
Today's Communication/Plan
-
Assessment / Plan
Assessment / Plan
Physical Exam
NAD, resting comfortably in bed
Scleral anicteric
Moist mucous membranes
No JVD
CTA bilateral
Normal S1-S2 no murmurs
Soft nontender nondistended bowel sounds active
No peripheral pitting edema
wounds are dressed appear clean, vac on
Moves extremities spontaneously
AAOx3
Assessment and Plan
Septic shock - resolved, off pressors
Surgical site infection/vascular graft infection
-Wound culture - pseudo. bcx growing enterococcus
--ID started Ntiza for 6weeks, Picc line
--Follow up sensitivities if able to transition to po
-Vascular surgery following
-Concern for fluid collection development, vascular ordered CTangio
--Follow up radiographic imaging
-wound vac on, changes per vascular
-ID following
HyperK resolved
SUZANNE improving
Hyponatgremia - unchanged
Metabolic acidosis - improving
HLD
-Continue statin
GERD
-Continue PPI
Downgrade to tele
PT/OT
DNR/DNI
Anticipated Discharge: 24 - 48 hours
Subjective/Interval History
-
Date of Service: August 22, 2024
seen and examined. no new compalints. no acute ovenright events
in good spirits
Objective Data
-
Labs:
Laboratory Results
08/22/24
05:10
WBC 11.4 H
Hgb 8.8 L
Hct 25.4 L
Plt Count 461 H
Sodium 131 L
Potassium 4.9
Chloride 99
Carbon Dioxide 27
BUN 27 H
Creatinine 1.1
Glucose 202 H
Calcium 8.7
Vital Signs:
Vital Signs
Temp Pulse Resp BP Pulse Ox
97.9 F 82 16 133/66 97
08/22/24 07:25 08/22/24 07:25 08/22/24 07:25 08/22/24 07:25 08/22/24 07:25
I&O
08/21/24 08/22/24 08/23/24
06:59 06:59 06:59
Intake Total 1380 / 1380 3894 / 3894
Output Total 1850 / 1850 1824 / 1824
Balance -470 / -470 2068
[2024-08-22] MEDS: HUMULIN R U-500 (CONCENTRATED) 40 UNITS SC ×2 (12:55→21:57)
[2024-08-22] MEDS: TYLENOL 650 MG PO ×3 (14:51→23:34)
[2024-08-22 15:35] VITALS: BP 137/64
[2024-08-22 16:49] LABS: Glucose - Point of Care 92 mg/dl (70-99)
[2024-08-22] MEDS: SENOKOT-S PO (19:32)
[2024-08-22 21:28] LABS: Glucose - Point of Care 160 mg/dl (70-99)
[2024-08-23 00:15] VITALS: BP 120/65
[2024-08-23] MEDS: STERILE WATER FOR INJECTION 20 ML IV ×2 (06:15→14:16)
[2024-08-23] MEDS: TYLENOL 650 MG PO ×3 (06:15→16:00)
[2024-08-23] MEDS: MERREM 1000 MG IV ×2 (06:15→14:16)
[2024-08-23] MEDS: ROXICODONE 5 MG PO ×3 (06:16→15:59)
[2024-08-23 07:27] VITALS: BP 138/64
[2024-08-23 07:39] LABS: Glucose - Point of Care 105 mg/dl (70-99)
--- NOTE | 2024-08-23 08:27 | PN.DE.MGMTRT ---
Insulin Management
- -
08/23/2024: Diabetes management F/U:
74 year old male readmitted on 08/14 for infected left femoral artery ruptured pseudoaneurysm after long hospitalization 07/30-08/12 s/p Left femoral endarterectomy. PMH: CAD, LEONEL, GERD, HTN, PAD, Crohn's disease, Hypercholesterolemia, H/O
pancreatitis, BPH, Glaucoma, Former smoker, Seizure disorder and T2DM. Pt underwent emergent left external iliac artery to above-knee popliteal artery obturator bypass and debridement with wound vac placement.
Recent A1C 7.1%, follows Endo Dr. Rogers Diaz at [facility]. Uses CGM SideTou[employer] 3.
Pt was readmitted with Hyperglycemia. He reports that he was not receiving his regular doses of U-500 while at [facility] because the facility did not have that type of insulin in stock, instead he was receiving NovoLog AC and Lantus @[facility], which he
believes contributed to uncontrolled blood sugars.
Prior to discharge last week, his U-500 doses were adjusted due to reduce CHO intake. Pt reports that he has no appetite but is willing to make effort in improving his nutrition to optimize his healing.
Pt awake, A/O x3, sitting up in chair, pleasant, offers no complaints, able to discuss diabetes mgt.
POD #8, doing well post obturator bypass and pseudoaneurysm ligation. awaiting LLE ultra sound
08/22 premeal glucose 92 to 300 and HS glucose was 160, fasting 105 this AM.
Will make no changes to current regimen; 75 units in AM, 40 units @noon if pt is going to eat lunch/20 units if no lunch and 40 units @ HS
Discussed with patient and nurse. Will follow and make further adjustments if needed
Diabetes History
- -
Type of Diabetes: 2 requiring insulin
Pre-Admission Diabetes Regimen
Insulin Pump Settings
IP Diabetes Regimen
08/22/24 08/22/24 08/22/24
11:50 16:48 21:26
POC Glucose 257 H 92 160 H
08/23/24
07:25
POC Glucose 105 H
Meal type: Dinner
Meal type: Lunch
Meal type: Breakfast
Amount consumed: 100%
Amount consumed: 100%
Amount consumed: 100%
Patient Education
[2024-08-23] MEDS: DILANTIN 200 MG PO (09:21)
[2024-08-23] MEDS: ASPIR LOW (ENTERIC COATED) 81 MG PO (09:21)
[2024-08-23] MEDS: LIPITOR 40 MG PO (09:21)
[2024-08-23] MEDS: PROTONIX 40 MG PO (09:21)
[2024-08-23] MEDS: SENOKOT-S 1 TABLET PO (09:21)
[2024-08-23] MEDS: HEPARIN 5000 UNITS SC ×2 (09:22→16:01)
[2024-08-23] MEDS: NOVOLOG FLEXPEN-MODERATE RESISTANCE SC (09:22)
--- NOTE | 2024-08-23 09:39 | W.PN.VS ---
Addendum entered and electronically signed by Chema Colin MD 08/23/24 16:25:
Seen and examined with MELIA Mcleod early this a.m. This is a late entry. Agree with findings as noted below. Plan/as discussed and noted below.
Original Note:
Today's Communication / Plan
-
Patient seen and examined at bedside with Dr. Chema Colin, below plan reviewed with attending.
Assessment/Plan
-
doing well post obturator bypass and pseudoaneurysm ligation
-PICC line placed for long-term antibiotics
- Out of bed/ambulate
- PT/OT
- Continue wound VAC at [facility], can leave abdomen and lower thigh stable surgical incisions open to air or covered with gauze as needed for drainage. If covered with gauze and paper tape placed to collect drainage must be changed to daily or more
frequently if soiled.
-Repeat CTA stable, cleared for discharge from a vascular surgery perspective
Subjective Data
-
Date of Service: August 23, 2024
Patient seen and examined, reports pain continues to be well managed and is making great strides with ambulation. states, 'feeling more myself.' Denies pain at ABD incision and reports decreased drainage from lateral side of incision.
Objective Data
-
Vital Signs
Temp Pulse Resp BP Pulse Ox
97.8 F 69 15 138/64 96
08/23/24 07:27 08/23/24 07:27 08/23/24 07:27 08/23/24 07:27 08/23/24 07:27
Intake and Output
08/22/24 08/23/24 08/24/24
06:59 06:59 06:59
Intake Total 3894 / 3894 1160 / 1160
Output Total 1825 / 1825 1230 / 1230
Balance 2068 / 2068 -70 / -70
Intake:
Oral fluids 3894 / 3894 1160 / 1160
Output:
Urine, Voided 1825 / 1825 1230 / 1230
Other:
How many times incontinent 2
MODERATE amount urine
How many times incontinent 1
SATURATED amount urine
Lab Results
08/22/24 05:10
08/22/24 05:10
Calcium 8.7 mg/dl (8.4-10.2) 08/22/24 05:10
Phosphorus 2.4 mg/dl (2.5-4.5) L 08/18/24 07:00
Magnesium 2.3 mg/dl (1.6-2.3) 08/18/24 07:00
Total Bilirubin 0.9 mg/dl (0.2-1.3) 08/18/24 07:00
AST 76 U/L (17-59) H 08/18/24 07:00
ALT 45 U/L (0-50) 08/18/24 07:00
Alkaline Phosphatase 99 U/L (38-126) 08/18/24 07:00
Total Protein 4.9 g/dl (6.3-8.2) L 08/18/24 07:00
Albumin 2.6 g/dl (3.5-5.0) L 08/18/24 07:00
Physical Exam
-
AAOx3
No tachypnea on room air
No tachycardia
Abdomen soft
Abdominal surgical site CDI, tanya remain well approximated with scant to minimal serous drainage, and left thigh surgical site CDI
Left upper thigh VAC site CDI holding suction
Bilateral feet warm
--- NOTE | 2024-08-23 09:40 | W.PN.HOSP.TC ---
Today's Communication/Plan
-
Final vascular surgery recs
-May need to go back to the OR
-If he does not need the OR
Then he can be discharged to [facility]
Assessment / Plan
Assessment / Plan
Imaging
CT Abd Aorta Angio W/ Run Off
IMPRESSION:
1.). There is new 4 x 4 by 6 cm pseudoaneurysm with internal vascular flow at the left common femoral artery associated with compression of the red cliff common femoral and proximal superficial femoral arteries with less than 50% luminal narrowing.
2). Anterior to the pseudoaneurysm there is a gas containing soft tissue collection measuring approximately 3.5 x 3.5 x 10 cm with overlying surgical clips. This collection has increased in size when compared with the 08/10/2024 examination
suggesting that this may be infected collection rather than related to recent surgical intervention
3). Extensive partially calcific atherosclerotic changes as detailed above.
4). 5 cm umbilical hernia which contains a loop of bowel without associated obstruction or strangulation.
5). Diffuse fatty infiltration of the liver
6). Multilevel lumbar degenerative disc disease [place], arteriography left common
Adjacent 10 cm gas-containing anterior ingesting
CXR
IMPRESSION:
1. Endotracheal tube in normal position.
2. Mildly decreased bilateral lung volumes.
3. Moderate opacity in the retrocardiac left lower lobe (probably subsegmental atelectasis).
CXR
IMPRESSION:
Right upper extremity PICC with catheter tip projecting over the superior vena cava.
CT Abd Aorta Angio W/ Run Off
IMPRESSION:
1. Patent left external iliac to above-knee popliteal bypass as above. Negative for arterial extravasation of contrast.
2. Within the pelvis, small fluid collection anterior to the left iliopsoas musculature as above, probable small hematoma related to the recent surgery. There are very small fluid collections in the left groin deep to the open wound as well as the
anterior left thigh as above related to the recent surgery. There is crescent-shaped fluid collection along the distal graft most likely postoperative seroma. No rim-enhancing fluid collection is identified.
3. Aortic atherosclerotic changes as seen previously. Left renal artery stenosis as seen previously.
4. Approximately 4 mm focal opacity along the minor fissure. This was present on the previous exam. Given the size and positioned along the fissure, likely to have a benign etiology. This has a flattened appearance on the multiplanar reformats,
seen to better advantage on the previous exam, which is also suggestive of benign etiology.
5. Question wall thickening posterior urinary bladder as described on previous CT angiogram of the abdomen and pelvis.
Physical Exam
NAD, resting comfortably in bed
Scleral anicteric
Moist mucous membranes
No JVD
CTA bilateral
Normal S1-S2 no murmurs
Soft nontender nondistended bowel sounds active
No peripheral pitting edema
wounds are dressed appear clean, vac on
Moves extremities spontaneously
AAOx3
Assessment and Plan
Septic shock - resolved, off pressors
Surgical site infection/vascular graft infection
-Wound culture - pseudo. bcx growing enterococcus
--ID started Nitza for 6weeks, Picc line
-Vascular surgery following
-Concern for fluid collection development, vascular ordered CTangio, report as above
--Follow up radiographic imaging
-wound vac on, changes per vascular
-ID following
HyperK resolved
SUZANNE improving
Hyponatgremia - unchanged
Metabolic acidosis - improving
HLD
-Continue statin
GERD
-Continue PPI
Downgrade to tele
PT/OT
DNR/DNI
Anticipated Discharge: Within 24 hours
Subjective/Interval History
-
Date of Service: August 23, 2024
seen and examiend. no new compalints, awaiting to hear from vascular
wound vac filled with debris and fluid
Objective Data
-
Vital Signs:
Vital Signs
Temp Pulse Resp BP Pulse Ox
97.8 F 69 15 138/64 96
08/23/24 07:27 08/23/24 07:27 08/23/24 07:27 08/23/24 07:27 08/23/24 07:27
I&O
08/22/24 08/23/24 08/24/24
06:59 06:59 06:59
Intake Total 3894 / 3894 1160 / 1160
Output Total 1825 / 1825 1230 / 1230
Balance 2068 / 2068 -70 / -70
[2024-08-23] MEDS: HUMULIN R U-500 (CONCENTRATED) 75 UNITS SC (09:42)
--- NOTE | 2024-08-23 10:24 | CM ---
Reviewed the chart notes and spoke with the patient at the bedside. IMM reviewed. The patient has a discharge order placed. Voice message left for [facility] admissions to confirm bed availability. CM continues to be available to patient/family
and is monitoring medical plan for needs at discharge.
Plan: Discharge to [facility].
Call report to: [phone]
Fax report to: [phone]
Transportation via ambulance.
[2024-08-23 13:10] LABS: Glucose - Point of Care 334 mg/dl (70-99)
[2024-08-23] MEDS: HUMULIN R U-500 (CONCENTRATED) 40 UNITS SC (13:11)
[2024-08-23] MEDS: NOVOLOG FLEXPEN-MODERATE RESISTANCE 7 UNITS SC (13:11)
[2024-08-23] MEDS: FLUSH (NSS) 2 FLUSH IV (14:16)
[2024-08-23 15:18] VITALS: BP 148/71
--- NOTE | 2024-08-23 15:52 | WOUNDNOTE ---
WOC RN Note: confirmed with CM Rosita Dykes that patient is going to [facility] today. Spoke with RN Yolanda earlier today who is aware to remove vac dressing and apply saline gauze dressing for transfer.
--- NOTE | 2024-08-23 17:13 | PTCARENOTE ---
Wound vac removed at time of discharge and wound packed with saline moistened gauze with a dry sterile dressing.Facility aware they will replace wound vac when patient arrives.
--- NOTE | 2024-08-23 17:36 | WOUNDNOTE ---
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
== END 2024-08-23 17:10 | DRG 270 ==
LOC: 2 SOUTH 19:37
PROVIDERS: Emergency Medicine; Hospitalist; Internal Medicine Critical Care Medicine; Nurse Practitioner Acute Care; Nurse Practitioner Family; Radiology Neuroradiology; Surgery; Surgery Vascular Surgery; ADMITTING PHYSICIAN Hospitalist; ATTENDING PHYSICIAN Hospitalist; CONSULT PHYSICIAN Student in an Organized Health Care Education/Training Program; EMERGENCY PHYSICIAN Student in an Organized Health Care Education/Training Program; FAMILY PHYSICIAN Family Medicine; OTHER PHYSICIAN Internal Medicine Critical Care Medicine; OTHER PHYSICIAN Nurse Practitioner
PROC: 041J0JQ Bypass Left External Iliac Artery to Lower Extremity Artery with Synthetic Substitute, Open Approach (ICD-10-PCS; 2024-08-14)
PROC: 30233N1 Transfusion of Nonautologous Red Blood Cells into Peripheral Vein, Percutaneous Approach (ICD-10-PCS; 2024-08-14)
PROC: 04BL0ZZ Excision of Left Femoral Artery, Open Approach (ICD-10-PCS; 2024-08-14)
PROC: 02HV33Z Insertion of Infusion Device into Superior Vena Cava, Percutaneous Approach (ICD-10-PCS; 2024-08-15)
DX: T82.7XXA Infection and inflammatory reaction due to other cardiac and vascular devices, implants and grafts, initial encounter (principal); A41.59 Other Gram-negative sepsis; R65.21 Severe sepsis with septic shock; K50.90 Crohn's disease, unspecified, without complications; N17.9 Acute kidney failure, unspecified; T81.718A Complication of other artery following a procedure, not elsewhere classified, initial encounter; Z68.41 Body mass index [BMI] 40.0-44.9, adult; E87.20 Acidosis, unspecified; E87.1 Hypo-osmolality and hyponatremia; D62 Acute posthemorrhagic anemia; L76.34 Postprocedural seroma of skin and subcutaneous tissue following other procedure; T81.41XA Infection following a procedure, superficial incisional surgical site, initial encounter; L03.314 Cellulitis of groin; E11.65 Type 2 diabetes mellitus with hyperglycemia; E11.51 Type 2 diabetes mellitus with diabetic peripheral angiopathy without gangrene; I10 Essential (primary) hypertension; I25.10 Atherosclerotic heart disease of native coronary artery without angina pectoris; E78.00 Pure hypercholesterolemia, unspecified; G47.33 Obstructive sleep apnea (adult) (pediatric); K21.9 Gastro-esophageal reflux disease without esophagitis; Z87.891 Personal history of nicotine dependence; G40.909 Epilepsy, unspecified, not intractable, without status epilepticus; Z88.2 Allergy status to sulfonamides; Z79.899 Other long term (current) drug therapy; Z79.4 Long term (current) use of insulin; Z79.82 Long term (current) use of aspirin; Z79.84 Long term (current) use of oral hypoglycemic drugs; Z79.85 Long-term (current) use of injectable non-insulin antidiabetic drugs; Z66 Do not resuscitate; E87.5 Hyperkalemia; Y83.8 Other surgical procedures as the cause of abnormal reaction of the patient, or of later complication, without mention of misadventure at the time of the procedure; E66.813 Obesity, class 3; E88.09 Other disorders of plasma-protein metabolism, not elsewhere classified; I95.89 Other hypotension; B96.89 Other specified bacterial agents as the cause of diseases classified elsewhere; Y83.2 Surgical operation with anastomosis, bypass or graft as the cause of abnormal reaction of the patient, or of later complication, without mention of misadventure at the time of the procedure; N40.0 Benign prostatic hyperplasia without lower urinary tract symptoms
CPT/HCPCS: 88304; 35656; 35681; 71045; 75635; 80048; 80053; 80202; 82010; 82805; 82947; 82962; 83605; 83735; 84100; 84478; 85025; 85027; 85610; 85730; 86850; 86900; 86901; 86920; 87040; 87070; 87075; 87076; 87077; 87149; 87186; 87205; 93005; 93971; 94002; 96361; 96365; 96366; 96367; 96375; 97116; 97163; 97167; 97530; 99291; C1768; J2185; P9016; Q9967

== ENCOUNTER → 2024-08-30 10:34 | Outpatient (REF) | payer MEDICARE, BC, SELFPAY ==
[2024-08-30 11:01] LABS: % Eosinophils 13.8 % (0-6); % Immature Granulocytes 0.4 % (0-0.5); % Lymphocytes 21.9 % (20.5-51.1); % Monocytes 6.7 % (1.7-9.3); % Neutrophils 56.2 % (42.2-75.2); Absolute Basophils 0.1 10^3/uL (0-0.2); Absolute Eosinophils 0.9 10^3/uL (0-0.7); Absolute Lymphocytes 1.5 10^3/uL (1.2-3.4); Absolute Monocytes 0.5 10^3/uL (0.1-0.6); Absolute Neutrophils 3.8 10^3/uL (1.4-6.5); Hematocrit 26.6 % (39.0-52.0); Hemoglobin 9.2 g/dL (13.0-18.0); Mean Corp Hgb Conc. 34.6 g/dL (33.0-37.0); Mean Corpuscular Hgb 31.9 pg (27.0-31.0); Mean Corpuscular Volume 92.4 fL (80.0-94.0); Mean Platelet Volume 9.6 fL (7.4-10.4); Nucleated Red Blood Cells % 0 % (-); Platelet Count 253 10^3/uL (130-400); Red Blood Cell Count 2.88 10^6/uL (4.70-6.10); Red Cell Dist. Width 16.3 % (11.5-14.5); White Blood Cell Count 6.8 10^3/uL (4.8-10.8)
[2024-08-30 11:22] LABS: Blood Urea Nitrogen 29 mg/dl (9-20); Calcium 8.6 mg/dl (8.4-10.2); Carbon Dioxide 27 mmol/L (22-30); Chloride 95 mmol/L (98-107); Glucose 302 mg/dl (70-99); Potassium 4.9 mmol/L (3.5-5.1); Sodium 133 mmol/L (135-145); eGFR > 60.00
== END ==
LOC: OLABP 10:34
PROVIDERS: ATTENDING PHYSICIAN Family Medicine
DX: K21.9 Gastro-esophageal reflux disease without esophagitis (principal); I25.10 Atherosclerotic heart disease of native coronary artery without angina pectoris; T81.49XD Infection following a procedure, other surgical site, subsequent encounter; B96.5 Pseudomonas (aeruginosa) (mallei) (pseudomallei) as the cause of diseases classified elsewhere; L03.116 Cellulitis of left lower limb; E78.00 Pure hypercholesterolemia, unspecified; M79.605 Pain in left leg; R26.2 Difficulty in walking, not elsewhere classified; I11.9 Hypertensive heart disease without heart failure; N40.0 Benign prostatic hyperplasia without lower urinary tract symptoms; E11.65 Type 2 diabetes mellitus with hyperglycemia; I73.9 Peripheral vascular disease, unspecified
CPT/HCPCS: 36415; 80048; 85025

== ENCOUNTER → 2024-09-06 10:10 | Outpatient (REF) | payer OTHER, MEDICARE, BC, SELFPAY ==
[2024-09-06 12:34] LABS: Hemoglobin 9.7 g/dL (13.0-18.0); Mean Corp Hgb Conc. 33.4 g/dL (33.0-37.0); Mean Corpuscular Hgb 31.4 pg (27.0-31.0); Mean Corpuscular Volume 93.9 fL (80.0-94.0); Mean Platelet Volume 9.3 fL (7.4-10.4); Platelet Count 225 10^3/uL (130-400); Red Blood Cell Count 3.09 10^6/uL (4.70-6.10); Red Cell Dist. Width 16.8 % (11.5-14.5); White Blood Cell Count 7.2 10^3/uL (4.8-10.8)
[2024-09-06 12:37] LABS: Blood Urea Nitrogen 32 mg/dl (9-20); Carbon Dioxide 26 mmol/L (22-30); Chloride 98 mmol/L (98-107); Glucose 270 mg/dl (70-99); Potassium 4.6 mmol/L (3.5-5.1); Sodium 136 mmol/L (135-145); eGFR > 60.00
== END ==
LOC: OLABPATH 10:10
PROVIDERS: ATTENDING PHYSICIAN Family Medicine
DX: K21.9 Gastro-esophageal reflux disease without esophagitis (principal); I25.10 Atherosclerotic heart disease of native coronary artery without angina pectoris; B96.5 Pseudomonas (aeruginosa) (mallei) (pseudomallei) as the cause of diseases classified elsewhere; K85.80 Other acute pancreatitis without necrosis or infection; E78.00 Pure hypercholesterolemia, unspecified; I73.9 Peripheral vascular disease, unspecified; K50.90 Crohn's disease, unspecified, without complications; I11.9 Hypertensive heart disease without heart failure; E66.01 Morbid (severe) obesity due to excess calories; R26.2 Difficulty in walking, not elsewhere classified; G47.30 Sleep apnea, unspecified; G40.901 Epilepsy, unspecified, not intractable, with status epilepticus
CPT/HCPCS: 36415; 80048; 85027

== ENCOUNTER → 2024-09-13 10:21 | Outpatient (REF) | payer OTHER, MEDICARE, BC, SELFPAY ==
[2024-09-13 11:40] LABS: % Basophils 0.6 % (0-2); % Eosinophils 9.6 % (0-6); % Immature Granulocytes 0.3 % (0-0.5); % Lymphocytes 17.2 % (20.5-51.1); % Monocytes 5.5 % (1.7-9.3); % Neutrophils 66.8 % (42.2-75.2); Absolute Eosinophils 0.6 10^3/uL (0-0.7); Absolute Lymphocytes 1.1 10^3/uL (1.2-3.4); Absolute Monocytes 0.4 10^3/uL (0.1-0.6); Absolute Neutrophils 4.4 10^3/uL (1.4-6.5); Hematocrit 29.3 % (39.0-52.0); Hemoglobin 9.6 g/dL (13.0-18.0); Mean Corp Hgb Conc. 32.8 g/dL (33.0-37.0); Mean Corpuscular Hgb 31.5 pg (27.0-31.0); Mean Corpuscular Volume 96.1 fL (80.0-94.0); Mean Platelet Volume 8.9 fL (7.4-10.4); Nucleated Red Blood Cells % 0 % (-); Platelet Count 229 10^3/uL (130-400); Red Blood Cell Count 3.05 10^6/uL (4.70-6.10); Red Cell Dist. Width 16.5 % (11.5-14.5); White Blood Cell Count 6.6 10^3/uL (4.8-10.8)
[2024-09-13 12:28] LABS: Blood Urea Nitrogen 31 mg/dl (9-20); Calcium 8.7 mg/dl (8.4-10.2); Carbon Dioxide 28 mmol/L (22-30); Chloride 96 mmol/L (98-107); Glucose 249 mg/dl (70-99); Potassium 4.1 mmol/L (3.5-5.1); Sodium 134 mmol/L (135-145); eGFR > 60.00
== END ==
LOC: OLABP 10:21
PROVIDERS: ATTENDING PHYSICIAN Family Medicine
DX: K21.9 Gastro-esophageal reflux disease without esophagitis (principal); I25.10 Atherosclerotic heart disease of native coronary artery without angina pectoris; B96.5 Pseudomonas (aeruginosa) (mallei) (pseudomallei) as the cause of diseases classified elsewhere; L03.116 Cellulitis of left lower limb; E78.00 Pure hypercholesterolemia, unspecified; I73.9 Peripheral vascular disease, unspecified; K50.90 Crohn's disease, unspecified, without complications; E11.65 Type 2 diabetes mellitus with hyperglycemia
CPT/HCPCS: 36415; 80048; 85025

== ENCOUNTER → 2024-09-20 11:10 | Outpatient (REF) | payer OTHER, MEDICARE, BC, SELFPAY ==
[2024-09-20 11:44] LABS: Hematocrit 27.9 % (39.0-52.0); Hemoglobin 9.3 g/dL (13.0-18.0); Mean Corp Hgb Conc. 33.3 g/dL (33.0-37.0); Mean Corpuscular Hgb 31.5 pg (27.0-31.0); Mean Corpuscular Volume 94.6 fL (80.0-94.0); Mean Platelet Volume 9.5 fL (7.4-10.4); Platelet Count 267 10^3/uL (130-400); Red Blood Cell Count 2.95 10^6/uL (4.70-6.10); Red Cell Dist. Width 15.9 % (11.5-14.5); White Blood Cell Count 5.9 10^3/uL (4.8-10.8)
[2024-09-20 11:48] LABS: Blood Urea Nitrogen 32 mg/dl (9-20); Calcium 8.7 mg/dl (8.4-10.2); Carbon Dioxide 26 mmol/L (22-30); Chloride 96 mmol/L (98-107); Glucose 272 mg/dl (70-99); Potassium 4.3 mmol/L (3.5-5.1); Sodium 132 mmol/L (135-145); eGFR > 60.00
== END ==
LOC: OLABP 11:10
PROVIDERS: ATTENDING PHYSICIAN Family Medicine
DX: K21.9 Gastro-esophageal reflux disease without esophagitis (principal); I25.10 Atherosclerotic heart disease of native coronary artery without angina pectoris; T81.49XD Infection following a procedure, other surgical site, subsequent encounter; L03.116 Cellulitis of left lower limb; E78.00 Pure hypercholesterolemia, unspecified; K50.90 Crohn's disease, unspecified, without complications; I73.9 Peripheral vascular disease, unspecified; M79.605 Pain in left leg; R26.2 Difficulty in walking, not elsewhere classified; G40.911 Epilepsy, unspecified, intractable, with status epilepticus; G47.30 Sleep apnea, unspecified; I11.9 Hypertensive heart disease without heart failure; E11.65 Type 2 diabetes mellitus with hyperglycemia; E60 Dietary zinc deficiency
CPT/HCPCS: 36415; 80048; 85027

== ENCOUNTER → 2024-09-27 10:15 | Outpatient (REF) | payer OTHER, MEDICARE, BC, SELFPAY ==
[2024-09-27 10:52] LABS: Hematocrit 30.8 % (39.0-52.0); Hemoglobin 10.3 g/dL (13.0-18.0); Mean Corp Hgb Conc. 33.4 g/dL (33.0-37.0); Mean Corpuscular Hgb 31.3 pg (27.0-31.0); Mean Corpuscular Volume 93.6 fL (80.0-94.0); Mean Platelet Volume 9.2 fL (7.4-10.4); Platelet Count 267 10^3/uL (130-400); Red Blood Cell Count 3.29 10^6/uL (4.70-6.10); Red Cell Dist. Width 15.5 % (11.5-14.5); White Blood Cell Count 6.2 10^3/uL (4.8-10.8)
[2024-09-27 11:08] LABS: Blood Urea Nitrogen 36 mg/dl (9-20); Calcium 8.9 mg/dl (8.4-10.2); Carbon Dioxide 27 mmol/L (22-30); Chloride 97 mmol/L (98-107); Glucose 273 mg/dl (70-99); Potassium 4.7 mmol/L (3.5-5.1); Sodium 135 mmol/L (135-145); eGFR > 60.00
== END ==
LOC: OLABP 10:15
PROVIDERS: ATTENDING PHYSICIAN Family Medicine
DX: K21.9 Gastro-esophageal reflux disease without esophagitis (principal); I25.10 Atherosclerotic heart disease of native coronary artery without angina pectoris; T81.49XD Infection following a procedure, other surgical site, subsequent encounter; B96.5 Pseudomonas (aeruginosa) (mallei) (pseudomallei) as the cause of diseases classified elsewhere; L03.116 Cellulitis of left lower limb; E78.00 Pure hypercholesterolemia, unspecified; K50.90 Crohn's disease, unspecified, without complications; I73.9 Peripheral vascular disease, unspecified; M79.605 Pain in left leg; R26.2 Difficulty in walking, not elsewhere classified; I11.9 Hypertensive heart disease without heart failure; E11.65 Type 2 diabetes mellitus with hyperglycemia; G40.901 Epilepsy, unspecified, not intractable, with status epilepticus; G47.30 Sleep apnea, unspecified
CPT/HCPCS: 36415; 80048; 85027

== ENCOUNTER → 2024-10-04 10:30 | Outpatient (REF) | payer MEDICARE, BC, SELFPAY ==
[2024-10-04 10:29] LABS: Hematocrit 30.2 % (39.0-52.0); Hemoglobin 10.4 g/dL (13.0-18.0); Mean Corp Hgb Conc. 34.4 g/dL (33.0-37.0); Mean Corpuscular Volume 92.9 fL (80.0-94.0); Platelet Count 230 10^3/uL (130-400); Red Blood Cell Count 3.25 10^6/uL (4.70-6.10); Red Cell Dist. Width 15.9 % (11.5-14.5); White Blood Cell Count 6.4 10^3/uL (4.8-10.8)
[2024-10-04 10:45] LABS: Blood Urea Nitrogen 22 mg/dl (9-20); Carbon Dioxide 27 mmol/L (22-30); Chloride 98 mmol/L (98-107); Glucose 88 mg/dl (70-99); Potassium 3.9 mmol/L (3.5-5.1); Sodium 134 mmol/L (135-145); eGFR > 60.00
== END ==
LOC: RAD 10:30
PROVIDERS: ATTENDING PHYSICIAN Family Medicine
DX: K21.9 Gastro-esophageal reflux disease without esophagitis (principal); I25.10 Atherosclerotic heart disease of native coronary artery without angina pectoris; T81.49XD Infection following a procedure, other surgical site, subsequent encounter; B96.5 Pseudomonas (aeruginosa) (mallei) (pseudomallei) as the cause of diseases classified elsewhere; L03.116 Cellulitis of left lower limb; E78.00 Pure hypercholesterolemia, unspecified; K50.90 Crohn's disease, unspecified, without complications; I73.9 Peripheral vascular disease, unspecified; M79.605 Pain in left leg; R26.2 Difficulty in walking, not elsewhere classified; E11.65 Type 2 diabetes mellitus with hyperglycemia; I11.9 Hypertensive heart disease without heart failure; G40.901 Epilepsy, unspecified, not intractable, with status epilepticus; G47.30 Sleep apnea, unspecified
CPT/HCPCS: 36415; 80048; 85027

== ENCOUNTER → 2024-10-11 10:36 | Outpatient (REF) | payer OTHER, MEDICARE, BC, SELFPAY ==
[2024-10-11 12:17] LABS: % Basophils 0.7 % (0-2); % Eosinophils 10.9 % (0-6); % Immature Granulocytes 0.6 % (0-0.5); % Lymphocytes 11.9 % (20.5-51.1); % Neutrophils 69.9 % (42.2-75.2); Absolute Basophils 0.1 10^3/uL (0-0.2); Absolute Eosinophils 0.9 10^3/uL (0-0.7); Absolute Immature Granulocytes 0.1 10^3/uL (0-0.05); Absolute Monocytes 0.5 10^3/uL (0.1-0.6); Absolute Neutrophils 5.7 10^3/uL (1.4-6.5); Hematocrit 31.2 % (39.0-52.0); Hemoglobin 10.4 g/dL (13.0-18.0); Mean Corp Hgb Conc. 33.3 g/dL (33.0-37.0); Mean Corpuscular Hgb 31.4 pg (27.0-31.0); Mean Corpuscular Volume 94.3 fL (80.0-94.0); Mean Platelet Volume 9.2 fL (7.4-10.4); Nucleated Red Blood Cells % 0 % (-); Platelet Count 240 10^3/uL (130-400); Red Blood Cell Count 3.31 10^6/uL (4.70-6.10); Red Cell Dist. Width 15.9 % (11.5-14.5); White Blood Cell Count 8.2 10^3/uL (4.8-10.8)
[2024-10-11 12:40] LABS: Blood Urea Nitrogen 23 mg/dl (9-20); Calcium 8.9 mg/dl (8.4-10.2); Carbon Dioxide 27 mmol/L (22-30); Chloride 96 mmol/L (98-107); Glucose 221 mg/dl (70-99); Potassium 4.4 mmol/L (3.5-5.1); Sodium 133 mmol/L (135-145); eGFR > 60.00
== END ==
LOC: OLABP 10:36
PROVIDERS: ATTENDING PHYSICIAN Family Medicine
DX: K21.9 Gastro-esophageal reflux disease without esophagitis (principal); I25.10 Atherosclerotic heart disease of native coronary artery without angina pectoris; B96.5 Pseudomonas (aeruginosa) (mallei) (pseudomallei) as the cause of diseases classified elsewhere; L03.116 Cellulitis of left lower limb; E78.00 Pure hypercholesterolemia, unspecified; I73.9 Peripheral vascular disease, unspecified
CPT/HCPCS: 36415; 80048; 85025

== ENCOUNTER → 2024-10-11 15:04 | Outpatient (REF) | payer MEDICARE, BC, SELFPAY | LOC: RAD 15:04 | PROVIDERS: ATTENDING PHYSICIAN Surgery Vascular Surgery; FAMILY PHYSICIAN Family Medicine | DX: I73.9 Peripheral vascular disease, unspecified (principal) | CPT/HCPCS: 93922; 93925 ==

== ENCOUNTER 2024-12-22 09:52 | Outpatient (RCR) | payer MEDICARE, BC, SELFPAY ==
[2024-12-07 10:43] LABS: Glucose - Point of Care 133 mg/dl (70-99)
[2024-12-07 11:23] LABS: Glucose - Point of Care 132 mg/dl (70-99)
[2024-12-10 09:23] LABS: Glucose - Point of Care 176 mg/dl (70-99)
[2024-12-10 10:06] LABS: Glucose - Point of Care 183 mg/dl (70-99)
[2024-12-13 09:20] LABS: Glucose - Point of Care 200 mg/dl (70-99)
[2024-12-13 10:04] LABS: Glucose - Point of Care 236 mg/dl (70-99)
[2024-12-15 09:24] LABS: Glucose - Point of Care 54 mg/dl (70-99)
[2024-12-15 09:24] LABS: Glucose - Point of Care 58 mg/dl (70-99)
[2024-12-15 09:49] LABS: Glucose - Point of Care 105 mg/dl (70-99)
[2024-12-17 09:20] LABS: Glucose - Point of Care 398 mg/dl (70-99)
[2024-12-20 09:15] LABS: Glucose - Point of Care 283 mg/dl (70-99)
[2024-12-20 10:04] LABS: Glucose - Point of Care 250 mg/dl (70-99)
[2024-12-22 09:18] LABS: Glucose - Point of Care 257 mg/dl (70-99)
[2024-12-22 09:54] LABS: Glucose - Point of Care 251 mg/dl (70-99)
== END 2024-12-22 23:59 | disposition home or self-care (01) ==
LOC: CRHB 09:52
PROVIDERS: ATTENDING PHYSICIAN Surgery Vascular Surgery; FAMILY PHYSICIAN Family Medicine
DX: I70.211 Atherosclerosis of native arteries of extremities with intermittent claudication, right leg (principal)
CPT/HCPCS: 82962; 93668

== ENCOUNTER 2024-12-24 07:46 | Emergency (ER) | payer MEDICARE, BC, SELFPAY ==
[2024-12-24 07:54] VITALS: BP 128/78
[2024-12-24 09:28] VITALS: BMI 39.2
[2024-12-24] MEDS: TYLENOL 650 MG PO (09:30)
[2024-12-24 09:52] LABS: Hematocrit 36.2 % (39.0-52.0); Hemoglobin 11.9 g/dL (13.0-18.0); Mean Corp Hgb Conc. 32.9 g/dL (33.0-37.0); Mean Corpuscular Hgb 31.5 pg (27.0-31.0); Mean Corpuscular Volume 95.8 fL (80.0-94.0); Mean Platelet Volume 8.8 fL (7.4-10.4); Platelet Count 234 10^3/uL (130-400); Red Blood Cell Count 3.78 10^6/uL (4.70-6.10); Red Cell Dist. Width 14.4 % (11.5-14.5); White Blood Cell Count 14.8 10^3/uL (4.8-10.8)
--- NOTE | 2024-12-24 10:05 | ED.GENMED ---
History of Present Illness
General
Chief Complaint: Headache
Source: patient
Exam Limitations: none
Time Seen by Provider: 12/24/24 09:00
Nursing documentation reviewed up to this point in time: agreed with
History of Present Illness
History of Present Illness:
Patient presents to ED secondary to persistent posterior headache, which woke the patient up from sleep this morning, along with neck pain. Patient states that when he went to sleep last night at midnight, he had no complaints. Denies recent
change in medications or diet. Patient, however, is currently undergoing physical therapy for lower extremity weakness but there was no session yesterday. Denies dizziness. Denies blurred vision. Denies loss of sensation or weakness. Denies
chest pain palpitations.
Past History
Past History
ED Past Medical History: HTN and IDDM
ED Past Surgical History: Other (Vascular surgery)
Social History
Tobacco: Non-smoker
Alcohol: None
Review of Systems
Review of Systems
Allergies reviewed?: Yes
All Other Systems: ROS reviewed and negative except as documented in HPI and ROS
Constitutional: Reports no symptoms; Denies fever
EENT: Reports no symptoms
Respiratory: Reports no symptoms
Cardiac: Reports no symptoms
ABD/GI: Reports no symptoms
Musculoskeletal: Reports neck pain
Skin: Reports no symptoms
Neurological: Reports headache
Phy Exam
Physical Exam
Physical Exam:
Physical Exam
General: mild painful distress, not acutely ill. afebrile
Head: nc/at. eomi
Neck: supple. no meningeal signs.
Heart: s1/s2 regular rate and rhythm, no murmur.
Lungs: no acute respiratory distress. clear bilaterally
Abdomen: normal bowel sounds. not tender.
Neuro: alert and oriented x 3. no focal neurological deficits. normal speech
Skin: no rash
Psychiatric: well kept. interactive and cooperative
Extremities: no edema. no calf tenderness.
Course
Orders/Labs/Results
Orders:
Orders
12/24/24 09:12
CT Head & Neck Angio W/wo IV Urgent
Comment:
Reason For Exam: posterior headache with ataxia
Acetaminophen [Tylenol] 650 mg PO NOW STA
12/24/24 09:31
Basic Metabolic Panel Urgent
Complete Blood Count/No Diff Urgent
Magnesium Urgent
12/24/24 10:57
0.9% Sodium Chloride 500 ml [Nss] 500 ml IV BOLUS
12/24/24 11:34
Influenza A+B Rapid Molecular Urgent
TIANNA Source: Nasal Swab
Specimen Description:
Abnormal Lab Results
12/24/24
09:31
WBC 14.8 H 10^3/uL
(4.8-10.8)
RBC 3.78 L 10^6/uL
(4.70-6.10)
Hgb 11.9 L g/dL
(13.0-18.0)
Hct 36.2 L %
(39.0-52.0)
MCV 95.8 H fL
(80.0-94.0)
MCH 31.5 H pg
(27.0-31.0)
MCHC 32.9 L g/dL
(33.0-37.0)
Sodium 130 L mmol/L
(135-145)
Chloride 94 L mmol/L
(98-107)
BUN 34 H mg/dl
(9-20)
Glucose 325 H mg/dl
(70-99)
12/24/24 09:31
12/24/24 09:31
Vital Signs
Initial and Last Documented VS:
Initial Vital Signs
Temp Pulse Resp BP Pulse Ox
98.4 F 97 18 128/78 99
12/24/24 07:54 12/24/24 07:54 12/24/24 07:54 12/24/24 07:54 12/24/24 07:54
Last Documented Vital Signs
Temp Pulse Resp BP Pulse Ox
98.4 F 94 18 155/66 98
12/24/24 07:54 12/24/24 10:52 12/24/24 10:52 12/24/24 10:52 12/24/24 10:52
MDM/Problems Addressed
MDM/Problems Addressed:
CT angiogram without any acute findings. Patient reports mild improvement in symptoms after treatment. Blood work reveals hyperglycemia without anion gap. Patient has not taken his diabetic medication today.
History and exam concerning for likely cervical radiculopathy, less likely an acute stroke. In addition, patient remains afebrile and neurologically intact. Patient feels comfortable going home at this time. Recommended PCP follow-up as an
outpatient, including potential physical therapy as an outpatient.
*Critical Care Note
Total Time (30-74mins, 75-104mins- exclusive of procedures): Not Applicable
ED Attending Note
-
Portions of this chart may have been created with voice recognition software.� Occasional wrong word or��sound alike� substitutions may have occurred due to the inherent limitations of voice recognition software.
Discharge Plan
Departure
Patient Disposition: Home (Routine Discharge)
Date of Disposition: 12/24/24
Time of Disposition: 12:53
Patient with high blood pressure during this ER visit?: Yes
Discharge Problem:
Cervical radiculopathy, Hyperglycemia
Instructions: Radiculopathy of the neck and back (including sciatica) - Discharge instructions, High blood sugar in adults - ED discharge instructions
Prescriptions:
No Action
phenytoin sodium extended 100 MG capsule
200 mg PO BID
fluticasone propionate 1 SPRAY spray,suspension
2 spray intranasal DAILY
atorvastatin 40 MG tablet
40 mg PO DAILY
pantoprazole 40 MG tablet,delayed release (DR/EC)
40 mg PO DAILY
lisinopril-hydrochlorothiazide 20-12.5 mg Tablet
2 tab PO DAILY Qty: 1 0RF
Rx Instructions:
Hold if systolic blood pressure <130 while on Oxycodone.
amlodipine 5 MG tablet
5 mg PO DAILY Qty: 1 0RF
Rx Instructions:
Hold if systolic blood pressure <130 while on Oxycodone.
aspirin 81 mg Tablet,Delayed Release (Dr/Ec)
81 mg PO DAILY
Ozempic 0.25 mg or 0.5 mg(2 mg/1.5 mL) Pen Injector
0.5 mg SC QWEEK
docusate sodium 100 mg Capsule
100 mg PO BID Qty: 20 0RF
oxycodone 5 mg tablet
5 mg PO Q4HPRN PRN (Reason: severe pain)
Humulin R U-500 (Conc) Kwikpen 500 unit/mL (3 mL) Insulin Pen
75 unit SC DAILY Qty: 6 0RF
Rx Instructions:
at 0800 (8am)
Humulin R U-500 (Conc) Kwikpen 500 unit/mL (3 mL) Insulin Pen
40 unit SC DAILY@2130 Qty: 6 0RF
Rx Instructions:
2130 (9:30pm)
Humulin R U-500 (Conc) Kwikpen 500 unit/mL (3 mL) Insulin Pen
40 unit SC DAILY@1200 Qty: 6 0RF
Rx Instructions:
12pm(noon)
metformin 1,000 mg Tablet
1,000 mg PO BID Qty: 60 0RF
Referrals:
Teodoro Barnard DO [Family Provider] -
Activity Restrictions/Additional Instructions:
As discussed, please follow-up with your primary care physician for reevaluation, including potential outpatient physical therapy. Please return to ED with worsening symptoms.
Interventions
Interventions:
*Risk Screen - Suicide Last Done: 12/24/24 07:54
*General Assessment Last Done: 12/24/24 07:54
*Neglect/Abuse Screening Last Done: 12/24/24 07:54
*Nursing Disposition Last Done: 12/24/24 13:04
ED- Neurological Assessment Last Done: 12/24/24 09:39
Discharge Date and Time
Discharge Date/Time: 12/24/24 13:05
Print Language: BENGALI
[2024-12-24 10:06] LABS: Blood Urea Nitrogen 34 mg/dl (9-20); Calcium 9.4 mg/dl (8.4-10.2); Carbon Dioxide 25 mmol/L (22-30); Chloride 94 mmol/L (98-107); Estimated Creatinine Clearance 65 ml/min; Glucose 325 mg/dl (70-99); Magnesium 1.9 mg/dl (1.6-2.3); Potassium 4.7 mmol/L (3.5-5.1); Sodium 130 mmol/L (135-145); eGFR > 60.00
[2024-12-24 10:52] VITALS: BP 155/66
[2024-12-24] MEDS: NSS 500 IV (11:21)
== END 2024-12-24 13:05 | disposition home or self-care (01) ==
LOC: EMR 07:46
PROVIDERS: EMERGENCY PHYSICIAN Emergency Medicine; FAMILY PHYSICIAN Family Medicine
DX: M47.22 Other spondylosis with radiculopathy, cervical region (principal); E11.65 Type 2 diabetes mellitus with hyperglycemia; I10 Essential (primary) hypertension
CPT/HCPCS: 99284; 96360; 70496; 70498; 80048; 83735; 85027; 87502; Q9967

== ENCOUNTER → 2025-01-14 08:58 | Outpatient (REF) | payer MEDICARE, BC, SELFPAY | LOC: RAD 08:58 | PROVIDERS: ATTENDING PHYSICIAN Surgery Vascular Surgery; FAMILY PHYSICIAN Family Medicine | DX: I73.9 Peripheral vascular disease, unspecified (principal) | CPT/HCPCS: 93922; 93925 ==

== ENCOUNTER → 2025-01-18 13:19 | Outpatient (REF) | payer MEDICARE, BC, SELFPAY ==
[2025-01-18 15:17] LABS: PSA, Total - Diagnostic 3.35 ng/ml (0.0-4.0)
== END ==
LOC: RAD 13:19
PROVIDERS: ATTENDING PHYSICIAN Family Medicine; OTHER PHYSICIAN Surgery Vascular Surgery; REFERRING PHYSICIAN Specialist
DX: I65.23 Occlusion and stenosis of bilateral carotid arteries (principal); R91.1 Solitary pulmonary nodule; R97.20 Elevated prostate specific antigen [PSA]
CPT/HCPCS: 36415; 71250; 84153; 93880

== ENCOUNTER 2025-01-21 12:12 | Emergency (ER) | payer MEDICARE, BC, SELFPAY ==
[2025-01-21 12:32] VITALS: BP 135/84
[2025-01-21 13:06] LABS: % Basophils 0.8 % (0-2); % Eosinophils 3.2 % (0-6); % Immature Granulocytes 0.3 % (0-0.5); % Lymphocytes 22.7 % (20.5-51.1); % Monocytes 5.9 % (1.7-9.3); % Neutrophils 67.1 % (42.2-75.2); Absolute Basophils 0.1 10^3/uL (0-0.2); Absolute Eosinophils 0.2 10^3/uL (0-0.7); Absolute Lymphocytes 1.5 10^3/uL (1.2-3.4); Absolute Monocytes 0.4 10^3/uL (0.1-0.6); Absolute Neutrophils 4.4 10^3/uL (1.4-6.5); Hematocrit 36.2 % (39.0-52.0); Hemoglobin 12.8 g/dL (13.0-18.0); Mean Corp Hgb Conc. 35.4 g/dL (33.0-37.0); Mean Corpuscular Volume 90.5 fL (80.0-94.0); Mean Platelet Volume 8.6 fL (7.4-10.4); Nucleated Red Blood Cells % 0 % (-); Platelet Count 246 10^3/uL (130-400); Red Cell Dist. Width 13.6 % (11.5-14.5); White Blood Cell Count 6.6 10^3/uL (4.8-10.8)
[2025-01-21 14:05] LABS: ALT (SGPT) 15 U/L (0-50); AST (SGOT) 17 U/L (17-59); Albumin 4.8 g/dl (3.5-5.0); Alkaline Phosphatase 101 U/L (38-126); Blood Urea Nitrogen 25 mg/dl (9-20); Calcium 10.2 mg/dl (8.4-10.2); Carbon Dioxide 28 mmol/L (22-30); Chloride 100 mmol/L (98-107); Glucose 79 mg/dl (70-99); Potassium 4.9 mmol/L (3.5-5.1); Sodium 139 mmol/L (135-145); Total Bilirubin 0.6 mg/dl (0.2-1.3); Total Protein 7.1 g/dl (6.3-8.2); eGFR 57.65
[2025-01-21 14:17] LABS: Troponin I < 0.012 ng/ml
--- NOTE | 2025-01-21 14:56 | ED.GENMED ---
History of Present Illness
General
Chief Complaint: Chest Pain
Source: patient
Exam Limitations: none
Time Seen by Provider: 01/21/25 14:32
Nursing documentation reviewed up to this point in time: agreed with
History of Present Illness
History of Present Illness:
74-year-old male presenting to the emergency department today with concerns of a left-sided chest discomfort scribed as achiness off and on over the past 2 weeks. Seems to be more common while resting. No specific palliation or provocation no
associated shortness of breath nausea vomiting numbness weakness. Did recently have a CT scan of the chest abdomen and pelvis 3 days ago as well as ultrasound of the neck without acute abnormalities.
Past History
Past History
ED Past Medical History: HTN and IDDM
ED Past Surgical History: Other (Vascular surgery)
Social History
Tobacco: Non-smoker
Alcohol: None
Review of Systems
Review of Systems
Allergies reviewed?: Yes
All Other Systems: ROS reviewed and negative except as documented in HPI and ROS
Phy Exam
Physical Exam
Physical Exam:
GENERAL: Alert , in no apparent distress
EYE: pupils equal and reactive
NECK: Supple, no significant adenopathy.
ENT: o/p clr, mmm.
CARDIAC: Regular rate and rhythm .
LUNGS: Clear breath sounds bilaterally, no acute respiratory distress, no wheezes/rales/rhonchi
ABDOMEN: Soft, without focal tenderness, no r/g, no cvat
NEUROLOGICAL: Alert and oriented, no focal neuro deficits
SKIN: Warm and dry, skin intact.
MUSCULOSKELETAL: No edema, well perfused.
PSYCH: Normal and appropriate interaction.
Scores
Heart Score for Chest Pain Patients
STEMI patient?: No
History: Slightly or Non-Suspicious
ECG: Normal
Age: >/= 65 years
Risk Factors: >/= 3 Risk Factors or History of CAD
Troponin: </= Normal Limit
Heart Score for Chest Pain Patients: 4
Heart Score Risk: 20.3% MACE over next 6 weeks
Course
Orders/Labs/Results
Orders:
Orders
01/21/25 12:13
ECG [Electrocardiogram (*1)] Urgent
Reason for Study: Chest Pain
EKG- Treatment ONCE
01/21/25 12:41
Complete Blood Count/With Diff Urgent
Comprehensive Metabolic Panel Urgent
Troponin I Urgent
Abnormal Lab Results
01/21/25
12:41
RBC 4.00 L 10^6/uL
(4.70-6.10)
Hgb 12.8 L g/dL
(13.0-18.0)
Hct 36.2 L %
(39.0-52.0)
MCH 32.0 H pg
(27.0-31.0)
BUN 25 H mg/dl
(9-20)
01/21/25 12:41
01/21/25 12:41
Vital Signs
Initial and Last Documented VS:
Initial Vital Signs
Temp Pulse Resp BP Pulse Ox
98.2 F 86 16 135/84 99
01/21/25 12:32 01/21/25 12:32 01/21/25 12:32 01/21/25 12:32 01/21/25 12:32
Last Documented Vital Signs
Temp Pulse Resp BP Pulse Ox
98.2 F 86 16 135/84 99
01/21/25 12:32 01/21/25 12:32 01/21/25 12:32 01/21/25 12:32 01/21/25 12:32
MDM/Problems Addressed
MDM/Problems Addressed:
74-year-old male presenting to the emergency department today with concerns of left-sided chest pain off and on over the past 2 weeks. Last for few minutes at a time and then spontaneously goes away. Otherwise no associated shortness of breath
nausea vomiting fevers or recent illness. No specific palliation or provocation. Currently asymptomatic. Here normal EKG negative troponin normal vital signs. Recently had a CT angiogram of the chest that showed vascular disease but nothing
emergent no dissection no aortic pathology. No evidence of PE. Very low likelihood for ACS at this time advised for close outpatient follow-up with cardiology. Return precautions given.
*Critical Care Note
Total Time (30-74mins, 75-104mins- exclusive of procedures): Not Applicable
ED Attending Note
-
Portions of this chart may have been created with voice recognition software.� Occasional wrong word or��sound alike� substitutions may have occurred due to the inherent limitations of voice recognition software.
Discharge Plan
Departure
Patient Disposition: Home (Routine Discharge)
Date of Disposition: 01/21/25
Time of Disposition: 15:00
Patient with high blood pressure during this ER visit?: No
Condition: Good
Covid-19: Not Applicable
Discharge Problem:
Chest pain
Instructions: Chest Pain DCA Follow Up
Prescriptions:
No Action
phenytoin sodium extended 100 MG capsule
200 mg PO BID
fluticasone propionate 1 SPRAY spray,suspension
2 spray intranasal DAILY
atorvastatin 40 MG tablet
40 mg PO DAILY
pantoprazole 40 MG tablet,delayed release (DR/EC)
40 mg PO DAILY
lisinopril-hydrochlorothiazide 20-12.5 mg Tablet
2 tab PO DAILY Qty: 1 0RF
Rx Instructions:
Hold if systolic blood pressure <130 while on Oxycodone.
amlodipine 5 MG tablet
5 mg PO DAILY Qty: 1 0RF
Rx Instructions:
Hold if systolic blood pressure <130 while on Oxycodone.
aspirin 81 mg Tablet,Delayed Release (Dr/Ec)
81 mg PO DAILY
Ozempic 0.25 mg or 0.5 mg(2 mg/1.5 mL) Pen Injector
0.5 mg SC QWEEK
docusate sodium 100 mg Capsule
100 mg PO BID Qty: 20 0RF
oxycodone 5 mg tablet
5 mg PO Q4HPRN PRN (Reason: severe pain)
Humulin R U-500 (Conc) Kwikpen 500 unit/mL (3 mL) Insulin Pen
75 unit SC DAILY Qty: 6 0RF
Rx Instructions:
at 0800 (8am)
Humulin R U-500 (Conc) Kwikpen 500 unit/mL (3 mL) Insulin Pen
40 unit SC DAILY@2130 Qty: 6 0RF
Rx Instructions:
2130 (9:30pm)
Humulin R U-500 (Conc) Kwikpen 500 unit/mL (3 mL) Insulin Pen
40 unit SC DAILY@1200 Qty: 6 0RF
Rx Instructions:
12pm(noon)
metformin 1,000 mg Tablet
1,000 mg PO BID Qty: 60 0RF
Activity Restrictions/Additional Instructions:
You came to the emergency department today with concerns of chest pain. Here you have a reassuring assessment. Please follow closely with your church supervisor within 1 to 2 weeks. Return for any worsening, new or concerning symptoms.
Interventions
Interventions:
*Risk Screen - Suicide Last Done: 01/21/25 12:32
*Neglect/Abuse Screening Last Done: 01/21/25 12:32
Discharge Date and Time
Print Language: INDONESIAN
[2025-01-21 15:05] VITALS: BP 149/75
== END 2025-01-21 15:19 | disposition home or self-care (01) ==
LOC: EMR 12:12
PROVIDERS: EMERGENCY PHYSICIAN Student in an Organized Health Care Education/Training Program
DX: R07.89 Other chest pain (principal); I10 Essential (primary) hypertension; E11.9 Type 2 diabetes mellitus without complications; I25.10 Atherosclerotic heart disease of native coronary artery without angina pectoris
CPT/HCPCS: 99283; 80053; 84484; 85025; 93005

== ENCOUNTER 2025-01-24 10:39 | Outpatient (RCR) | payer MEDICARE, BC, SELFPAY ==
[2024-12-31 09:16] LABS: Glucose - Point of Care 318 mg/dl (70-99)
[2025-01-03 09:23] LABS: Glucose - Point of Care 261 mg/dl (70-99)
[2025-01-03 10:01] LABS: Glucose - Point of Care 239 mg/dl (70-99)
[2025-01-05 09:19] LABS: Glucose - Point of Care 213 mg/dl (70-99)
[2025-01-05 10:05] LABS: Glucose - Point of Care 256 mg/dl (70-99)
[2025-01-07 09:11] LABS: Glucose - Point of Care 295 mg/dl (70-99)
[2025-01-07 09:58] LABS: Glucose - Point of Care 360 mg/dl (70-99)
[2025-01-10 09:34] LABS: Glucose - Point of Care 300 mg/dl (70-99)
[2025-01-10 10:16] LABS: Glucose - Point of Care 252 mg/dl (70-99)
[2025-01-12 09:14] LABS: Glucose - Point of Care 260 mg/dl (70-99)
[2025-01-12 10:05] LABS: Glucose - Point of Care 200 mg/dl (70-99)
[2025-01-24 09:24] LABS: Glucose - Point of Care 253 mg/dl (70-99)
[2025-01-24 10:11] LABS: Glucose - Point of Care 253 mg/dl (70-99)
== END 2025-01-24 23:59 | disposition home or self-care (01) ==
LOC: CRHB 10:39
PROVIDERS: ATTENDING PHYSICIAN Surgery Vascular Surgery; FAMILY PHYSICIAN Family Medicine
DX: I70.211 Atherosclerosis of native arteries of extremities with intermittent claudication, right leg (principal); I25.10 Atherosclerotic heart disease of native coronary artery without angina pectoris
CPT/HCPCS: 82962; 93668

== ENCOUNTER → 2025-02-04 12:22 | Outpatient (REF) | payer MEDICARE, BC, SELFPAY ==
[2025-02-04 13:44] LABS: HDL Cholesterol 47 mg/dl; LDL Cholesterol, Calculated 72 mg/dl; Total Cholesterol 159 mg/dl (50-199); Triglyceride 201 mg/dl (10-149); Very Low Density Lipoprotein 40 mg/dl (0-30)
== END ==
LOC: RCS 12:22
PROVIDERS: ATTENDING PHYSICIAN Internal Medicine Cardiovascular Disease; FAMILY PHYSICIAN Family Medicine
DX: I35.9 Nonrheumatic aortic valve disorder, unspecified (principal); E78.2 Mixed hyperlipidemia
CPT/HCPCS: 36415; 80061; 93306

== ENCOUNTER 2025-02-23 10:40 | Outpatient (RCR) | payer MEDICARE, BC, SELFPAY ==
[2025-01-26 09:27] LABS: Glucose - Point of Care 226 mg/dl (70-99)
[2025-01-26 10:06] LABS: Glucose - Point of Care 200 mg/dl (70-99)
[2025-01-31 09:19] LABS: Glucose - Point of Care 243 mg/dl (70-99)
[2025-01-31 10:01] LABS: Glucose - Point of Care 266 mg/dl (70-99)
[2025-02-02 09:17] LABS: Glucose - Point of Care 215 mg/dl (70-99)
[2025-02-02 10:01] LABS: Glucose - Point of Care 226 mg/dl (70-99)
[2025-02-04 09:16] LABS: Glucose - Point of Care 211 mg/dl (70-99)
[2025-02-04 09:53] LABS: Glucose - Point of Care 219 mg/dl (70-99)
[2025-02-07 09:27] LABS: Glucose - Point of Care 263 mg/dl (70-99)
[2025-02-07 10:09] LABS: Glucose - Point of Care 228 mg/dl (70-99)
[2025-02-09 09:06] LABS: Glucose - Point of Care 190 mg/dl (70-99)
[2025-02-09 09:59] LABS: Glucose - Point of Care 192 mg/dl (70-99)
[2025-02-14 09:29] LABS: Glucose - Point of Care 226 mg/dl (70-99)
[2025-02-14 10:04] LABS: Glucose - Point of Care 229 mg/dl (70-99)
[2025-02-16 09:25] LABS: Glucose - Point of Care 231 mg/dl (70-99)
[2025-02-16 10:13] LABS: Glucose - Point of Care 215 mg/dl (70-99)
[2025-02-18 09:21] LABS: Glucose - Point of Care 224 mg/dl (70-99)
[2025-02-18 10:10] LABS: Glucose - Point of Care 226 mg/dl (70-99)
== END 2025-02-23 23:59 | disposition home or self-care (01) ==
LOC: CRHB 10:40
PROVIDERS: ATTENDING PHYSICIAN Surgery Vascular Surgery; FAMILY PHYSICIAN Family Medicine
DX: I70.211 Atherosclerosis of native arteries of extremities with intermittent claudication, right leg (principal); I25.10 Atherosclerotic heart disease of native coronary artery without angina pectoris
CPT/HCPCS: 82962; 93668

== ENCOUNTER 2025-02-28 09:02 | Outpatient (RCR) | payer MEDICARE, BC, SELFPAY | END 2025-02-28 23:59 | disposition home or self-care (01) | LOC: CRHB 09:02 | PROVIDERS: ATTENDING PHYSICIAN Surgery Vascular Surgery; FAMILY PHYSICIAN Family Medicine | DX: I70.211 Atherosclerosis of native arteries of extremities with intermittent claudication, right leg (principal); I25.10 Atherosclerotic heart disease of native coronary artery without angina pectoris | CPT/HCPCS: 93668 ==

== ENCOUNTER → 2025-07-05 10:25 | Outpatient (REF) | payer MEDICARE, BC, SELFPAY | LOC: HWRAD 10:25 | PROVIDERS: ATTENDING PHYSICIAN Internal Medicine Critical Care Medicine; FAMILY PHYSICIAN Family Medicine | DX: R91.1 Solitary pulmonary nodule (principal) | CPT/HCPCS: 71250 ==

== ENCOUNTER → 2025-07-28 08:20 | Outpatient (REF) | payer MEDICARE, BC, SELFPAY ==
[2025-07-28 09:06] LABS: Hematocrit 34.2 % (39.0-52.0); Hemoglobin 11.9 g/dL (13.0-18.0); Mean Corp Hgb Conc. 34.8 g/dL (33.0-37.0); Mean Corpuscular Volume 94.2 fL (80.0-94.0); Nucleated Red Blood Cells % 0 % (-); Platelet Count 226 10^3/uL (130-400); Red Cell Dist. Width 14.0 % (11.5-14.5)
[2025-07-28 10:11] LABS: Glycohemoglobin (HgbA1c) 6.6 % (4.0-5.6)
[2025-07-28 10:39] LABS: ALT (SGPT) 18 U/L (0-50); AST (SGOT) 23 U/L (17-59); Albumin 4.3 g/dl (3.5-5.0); Alkaline Phosphatase 93 U/L (38-126); Calcium 9.4 mg/dl (8.4-10.2); Carbon Dioxide 27 mmol/L (22-30); Chloride 101 mmol/L (98-107); Glucose 157 mg/dl (70-99); HDL Cholesterol 53 mg/dl; LDL Cholesterol, Calculated 55 mg/dl; Potassium 4.3 mmol/L (3.5-5.1); Sodium 135 mmol/L (135-145); Total Protein 6.5 g/dl (6.3-8.2); Very Low Density Lipoprotein 23 mg/dl (0-30); eGFR 57.29
[2025-07-28 11:13] LABS: Blood Urea Nitrogen 33 mg/dl (9-20)
[2025-07-28 11:16] LABS: TSH 0.88 uIU/ml (0.47-4.68)
[2025-07-28 13:20] LABS: Microalbumin, Random Urine 1.9 mg/dl (0.6-1.7)
[2025-07-28 14:34] LABS: Microalb - Urine Creatinine 95.600 mg/dl
== END ==
LOC: RAD 08:20
PROVIDERS: ATTENDING PHYSICIAN Physician Assistant; FAMILY PHYSICIAN Family Medicine; OTHER PHYSICIAN Internal Medicine Cardiovascular Disease
DX: I65.22 Occlusion and stenosis of left carotid artery (principal); Z00.00 Encounter for general adult medical examination without abnormal findings; E11.29 Type 2 diabetes mellitus with other diabetic kidney complication; E11.59 Type 2 diabetes mellitus with other circulatory complications; E11.69 Type 2 diabetes mellitus with other specified complication; E78.5 Hyperlipidemia, unspecified; I25.10 Atherosclerotic heart disease of native coronary artery without angina pectoris
CPT/HCPCS: 36415; 80053; 80061; 82043; 82570; 83036; 84443; 85025; 93880; 93922; 93925